=== PATIENT | male | born 1945 | race Caucasian/White ===

== ENCOUNTER 2021-02-25 10:13 | Outpatient (REF) | payer MEDICARE, OTHER, SELFPAY ==
--- NOTE | ~2021-02-25 | US_ITS ---
EXAMINATION: US RETROPERITONEAL COMPLETE (RENAL) CLINICAL INFORMATION: Microscopic hematuria. COMPARISON: Renal ultrasounds dated 04/11/2018 and 09/13/2017. CT abdomen and pelvis without contrast dated 12/27/2017. KUBs dated 08/11/2017 and 03/12/2010. TECHNIQUE: Real-time imaging of the kidneys and bladder. FINDINGS: RIGHT KIDNEY: 12.1 x 5.8 x 5.8 cm (SAG x AP x TRV). The kidney is normal in size, contour, and echogenicity. Renal cortical thickness is normal. There is a 9 x 7 x 6 mm stone in the lower pole that moved into the UPJ region. There is a 4 x 2 x 4 mm upper pole stone. There is mild hydronephrosis. No focal parenchymal lesions. LEFT KIDNEY: 12.6 x 6.6 x 4.9 cm (SAG x AP x TRV). The kidney is normal in size, contour, and echogenicity. Renal cortical thickness is normal. No calculi or focal parenchymal lesions. No hydronephrosis. BLADDER: The bladder wall is thickened and trabeculated. The prostate gland protrudes into the base of the bladder. Bilateral ureteral jets are demonstrated. Prevoid bladder volume is 213 mL. Postvoid bladder volume is 125 mL. The prostate gland is enlarged and measures 5.6 x 4.3 x 4.8 cm. Prostate volume is 60 mL. US/US retroperitoneal comp IMPRESSION: Right renal stones, largest a 9 x 7 x 6 mm stone in the UPJ region and mild hydronephrosis. Normal left kidney. Thickened, trabeculated bladder wall. Large postvoid bladder residual. Enlarged prostate gland that protrudes into the base of the bladder.
== END 2021-02-25 10:14 | disposition home or self-care (01) ==
LOC: HO.HMGCX 10:13
PROVIDERS: PCP Internal Medicine Medical Oncology; Visit Provider Internal Medicine Medical Oncology
DX: R31.29 Other microscopic hematuria (principal)
CPT/HCPCS: 76770

== ENCOUNTER 2024-01-31 11:50 | Outpatient (REF) | payer MEDICARE, SELFPAY | END 2024-01-31 11:51 | disposition home or self-care (01) | LOC: HO.LAB 11:50 | PROVIDERS: PCP Internal Medicine Medical Oncology; Visit Provider Internal Medicine Medical Oncology | DX: N39.0 Urinary tract infection, site not specified (principal) | CPT/HCPCS: 87086 ==

== ENCOUNTER 2024-02-14 13:08 | Outpatient (REF) | payer MEDICARE, SELFPAY ==
[2024-02-14 13:22] LABS: Appearance Urine Clear; Color Urine Yellow; Glucose Urine UA Negative (Negative); Leukocyte Esterase Urine Negative (Negative); Nitrite Urine Negative (Negative); Urine Blood Negative (Negative); Urine Ketones Negative (Negative); Urine Protein Negative (Neg-Trace)
== END 2024-02-14 13:09 | disposition home or self-care (01) ==
LOC: HO.LNP 13:08
PROVIDERS: Visit Provider Internal Medicine Medical Oncology
DX: R35.1 Nocturia (principal)
CPT/HCPCS: 81003; 87086

== ENCOUNTER 2024-04-25 10:22 | Outpatient (REF) | payer MEDICARE, SELFPAY ==
--- NOTE | ~2024-04-25 | XR_ITS ---
EXAMINATION: XR CHEST CLINICAL INFORMATION: Chronic cough. COMPARISON: None available. TECHNIQUE: 2 views of the chest were obtained. FINDINGS: There is no gross pneumothorax. Heart size is normal. Trace left pleural effusion. Patchy opacities in the azh-bs-vtpvo left lung. Deformity of several left ribs, possibly related to trauma of indeterminate age and this could be evaluated with dedicated views of the ribs. Degenerative changes in the thoracic spine. XR/XR chest 2V IMPRESSION: 1. Substantial patchy airspace opacities in the yoc-tg-nytid left lung. 2. Deformity of several left ribs, possibly related to trauma of indeterminate age and this could be evaluated with dedicated views of the ribs. This study was presented today April 25, 2024 for interpretation. Stat results provided at this time as requested by referring provider. 1. Electronically signed by: Angelika Barry MD 04/25/2024 01:12 PM ME[facility] MARRERO
[2024-04-25 10:44] LABS: MANUAL DIFF FLAG NO
[2024-04-25 10:55] LABS: Basophils Absolute Auto 0.1 X10*3/uL (0.0-0.2); Basophils Percent Auto 1.2 % (0-2); Eosinophils Absolute Auto 0.4 X10*3/uL (0.0-0.4); Eosinophils Percent Auto 4.7 % (0-4); Hematocrit 36.5 % (42.0-52.0); Hemoglobin 12.4 g/dl (14.0-18.0); Imm Gran Abs Auto 0.04 X10*3/uL (0.00-0.03); Imm Gran Pct Auto 0.5 % (0.0-0.4); Lymphocytes Absolute Auto 2.7 X10*3/uL (1.2-4.9); Lymphocytes Percent Auto 31.6 % (20-40); Mean Corpuscular Hemoglobin 31.6 pg (27.0-33.0); Mean Corpuscular Volume 92.9 fL (80.0-98.0); Mean Platelet Volume 10.6 fL (9.4-12.4); Monocytes Absolute Auto 0.8 X10*3/uL (0.1-1.2); Monocytes Percent Auto 9.6 % (2-11); Neutrophils Absolute Auto 4.5 x10*3/uL (2.0-8.3); Neutrophils Percent Auto 52.4 % (45-73); Platelet Count 218 X10*3/uL (160-400); Red Blood Count 3.93 X10*6/uL (4.60-5.80); Red Cell Distribution Width 14.6 % (11.0-16.0); White Blood Count 8.6 X10*3/uL (4.8-10.8)
[2024-04-25 11:00] LABS: Estimated Average Glucose 146 mg/dL; Hemoglobin A1C 157.7297 umol/L; Hemoglobin A1c % 6.7 % (<6.0); Total Hemoglobin (HGBA1C) 3193.6366 umol/L
[2024-04-25 11:38] LABS: Alanine Aminotransferase 12 U/L (0-40); Albumin Level 4.3 g/dL (3.5-5.0); Alkaline Phosphatase 58 U/L (39-117); Anion Gap 12 (12-20); Aspartate Amino Transferase 38 U/L (5-37); Bilirubin Total 0.9 mg/dL (0.0-1.0); Blood Urea Nitrogen 17 mg/dL (9-16); Calcium 9.6 mg/dL (8.4-10.2); Carbon Dioxide 28 mmol/L (22-29); Chloride 103 mmol/L (96-108); Cholesterol 120 mg/dL (<200); Estimated Glomerular Filt Rate > 60; Glucose Fasting 119 mg/dL (60-99); HDL Cholesterol 35 mg/dL (>40); LDL Cholesterol Calculated 49 mg/dL (<100); Potassium 4.8 mmol/L (3.3-5.1); Sodium 138 mmol/L (135-145); Triglycerides 183 mg/dL (<150)
[2024-04-25 12:19] LABS: Creatinine Urine 168.08 mg/dL; Microalbum/Creatinine Ratio Ur 17.8 ug/mg cr (<30)
== END 2024-04-25 10:23 | disposition home or self-care (01) ==
LOC: HO.XRAY 10:22
PROVIDERS: PCP Internal Medicine Medical Oncology; Visit Provider Internal Medicine Medical Oncology
DX: R05.3 Chronic cough (principal); Z13.1 Encounter for screening for diabetes mellitus
CPT/HCPCS: 36415; 71046; 80053; 80061; 82043; 82570; 83036; 85025

== ENCOUNTER 2024-05-29 10:11 | Outpatient (AMB) | payer MEDICARE, SELFPAY ==
[2024-05-29 10:13] VITALS: BP 130/64; PULSE 78; O2SAT 98; BMI 27.5
--- NOTE | 2024-05-29 10:13 | MHC.OFFVIS ---
Vital Signs 05/29/24 10:13 Height 5 ft 9 in Weight 186 lb 4.65 oz BMI 27.5 BP 130/64 Blood Pressure Location Rt brachial Position Sitting Pulse 78 Pulse Source Pulse Oximeter Pulse Oximetry (%) 98 Oxygen Delivery Method Room Air Intake Visit Reasons: LLL opacities Medication List - Last Reconciled 05/29/24 by Yaz Knight LPN aspirin 81 mg PO DAILY fluoxetine 10 mg PO DAILY lisinopril 10 mg PO DAILY metformin ER 1,000 mg PO DAILY metoprolol succinate ER 25 mg PO BID HPI HPI LLL opacities: Details: 78-year-old gentleman, former greater than 40 pack-year smoker, quit over 20 years prior referred for pulmonary evaluation secondary to chronic bronchitic symptoms productive of yellowish to greenish sputum and the flow lobe opacities noted on chest x-ray. Patient also complains of dyspnea on exertion, particularly when going up stairs. He denies prior personal or family history of lung disease. He has been employed with no exposure to industrial dusts. Patient does not have pets. [facility] Social History (Updated 05/29/24 @ 10:20 by Yaz Knight LPN) Patient Tobacco Use Status: Former Tobacco user Tobacco use type: Cigarette Years Smoked: 40 Review of Systems Const Denies daytime sleepiness, Denies excessive sweating, Denies fatigue, Denies fever(s), Denies lethargy, Denies malaise, Denies night sweats, Denies snoring and Denies weight loss Eyes Denies blurry vision and Denies itchy eyes ENT Denies nasal congestion, Denies post nasal drip, Denies sinus pain, Denies sinus pressure and Denies other ( Thrush) Card Denies chest pain, Denies pedal edema, Denies dyspnea, Reports dyspnea on exertion, Denies orthopnea and Denies paroxysmal nocturnal dyspnea Resp Reports cough, Denies hemoptysis, Reports excessive phlegm production, Denies dyspnea, Reports dyspnea on exertion, Denies snoring and Denies wheezing GI Denies abdominal pain and Denies heartburn Musc Denies myalgias, Denies arthralgias and Denies joint swelling Skin/Breast Denies rash Neuro Denies memory loss and Denies seizure-like activity Psych Denies abnormal sleep pattern, Denies anxiety and Denies memory loss Endo Denies excessive sweating, Denies fatigue and Denies heat intolerance Vern/Lymph Denies easy bruising Aller/Immun Denies itchy eyes, Denies seasonal rhinorrhea and Denies wheezing Physical Exam Vital Signs: Last Vital Signs Pulse 78 05/29/24 10:13 BP 130/64 05/29/24 10:13 Pulse Ox 98 05/29/24 10:13 Oxygen Delivery Method Room Air 05/29/24 10:13 BMI result Body Mass Index 27.5 Const General: no acute distress and alert Nutritional Appearance: not obese Orientation/consciousness: Other orientation findings ( oriented) HEENT Head: Yes atraumatic Eyes General: appearance normal, both eyes and all related structures Sclerae: sclerae normal EOM: EOMs intact bilaterally Neck Neck: Yes supple Lymphatic: no lymphadenopathy noted Resp Effort & Inspection: normal respiratory effort and no use of accessory muscles Auscultation: clear to auscultation bilaterally Cardio Rate: regular rate Rhythm: regular rhythm Heart sounds: no gallops, no murmurs and no rubs Skin General skin exam: other ( warm) Extrem General: No clubbing, No cyanosis and No edema Assessment & Plan Assessment & Plan (1) Chronic bronchitis: Code(s): J42 - Unspecified chronic bronchitis Category: Medical Plan: Will treat with a course of Levaquin. (2) Abnormal chest x-ray: Code(s): R93.89 - Abnormal findings on diagnostic imaging of other specified body structures Category: Medical Plan: Will obtain CT chest for further evaluation. (3) Dyspnea on exertion: Code(s): R06.09 - Other forms of dyspnea Category: Medical Plan: Likely underlying COPD of unclear severity. Will obtain full PFT and start on empiric Anoro. Orders: Orders CT chest wo IV con Today R93.89 - Abnormal findings on diagnostic imaging of other specified body structures PFT pulmonary function test Today R06.09 - Other forms of dyspnea Medications: New levofloxacin 750 mg PO DAILY 7 tabs 0RF J42 - Unspecified chronic bronchitis Coding Level of Care Code New Pt Level 4 (89287) Diagnoses Chronic bronchitis J42 Abnormal chest x-ray R93.89 Dyspnea on exertion R06.09
--- OUTSIDE RECORDS SUMMARY | 2024-05-29 11:15 | XMS_ITS ---
Author Organization Miko Elias III, MD Address [address] [place] [address] [address] [place] [address] Care Team Providers Care Municipal Maintenance Worker Name Role Phone Miko Elias Primary Care Provider Allergies Allergen (clinical drug [...] Date Provider Diagnosis Miko Elias III, MD [address] [place] [address] [address] [place] [address] 05/09/2024 Miko Elias Plan Of Treatment Medication [...] JEWELL TH EVERY DAY FOR 30 DAYS Lancets - E 11.9 use to check [...] EVERY DAY Next Appt Details Provider Name:Miko Elias, 10/17/2024 10:00:00 AM, [address] [place] [address] [address], [place], [address], Progress Notes * Sylvester ROCK EDOB:[birth year] (78 yo M)Acc No.[id number]:05/09/2024 Progress Notes Patient:?Sylvester ROCK Provider:?Miko Elias MD :1945???Age:78 Y???Sex:Male Edison e:05/09/2024 Address:[address], [place], [id number] Subjective: * Chief Complaints: * ???1. Follow up. * HPI: ???COVID-19 Screening:?Questions?Have you had any new onset fever, chills, cough, congestion, sore throat, shortness of breath, muscle aches??No * ROS:?General/Constitutional:?pain?only normal aches and pains.?Chills?denies.?Fatigue?admits.?Fever?denies.?ENT:?Decreased hearing?denies.?Respiratory:?Cough?denies.?Cardiovascular:?Chest pain with exertion?denies.?Dyspnea on exertion?denies.?Shortness of breath?denies.?Gastrointestinal:?Constipation?denies.?Decreased appetite?denies.?Diarrhea?denies.?Heartburn?denies.?Nausea?denies.?Rectal bleeding?denies.?Vomiting?denies.?Hematology:?bruising?denies.?petechiae?denies.?Swollen glands?none have been noted.?Genitourinary:?Frequent urination?denies.?Musculoskeletal:?Muscle aches?denies.?Painful joints?denies.?Sciatica?denies.?Weakness?denies.?Skin:?Itching?denies.?Rash?denies.?Skin lesion(s)?denies.?Neurologic:?Difficulty speaking?denies.?Dizziness?denies.?Headache?denies.?Low back pain?denies.?Psychiatric:?Depressed mood?denies.? * Medical History:?Depression, Gout, Hypertension, benign, Cataracts, Sleep apnea, Diabetes mellitus 2006, Allergies, fractured left tibia May 30, 2013, Hypertriglyceridemia, low back pain September 2017, Nephrolithiasis. * Surgical History:?left knee surgery , fractured left tibia repair May 2013, right kidney stone removal 08/11/2017, tooth extraction 08/2021. * Hospitalization/Major Diagno stic Procedure:?chest pain 08/2018, fall with facial laceration and sutures 07/2023. * Family History:?Father: dece ased 25 yrs, automobile accident.?Mother: 82 yrs, stroke.?Siblings: .?2 brother(s) , 2 sister(s) - healthy. .? A brother at 23 in an automobile accident. He has no children. He is not aware of any family history of substance use disorder, addiction or mental illness. * Social History:?Tobacco Use:?Tobacco Use/Smoking?Patient is a?former smoker ?How long has it been since you last smoked??> 10 years ?Additional Findings: Tobacco Non-User?Ex-cigarette smoker ???He was born in [place] and has been to [place] for 15 years. He has 1 stepson. 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 * Medications:?Taking Ciproflo xacin HCl 250 MG Tablet 1 tablet Orally [...] reviewed and reconciled with the patient * Allergies:?Dexamethasone: an xiety and insomnia, Oxycodone: nausea, Stomach pain. Objective: * Vitals:? * Examination: ???General Examination: ?GENERAL APPEARANCE:?pleasant, well nourished, well developed, in no acute distress, calm and relaxed.?HEAD:?atraumatic, normocephalic.?EYES:?eomi, perrla, anicteric, conjugate.?EARS:?normal.?NOSE:?septum intact.?ORAL CAVITY:?normal, unremarkable.?NECK/THYROID:?no jugular venous distention, no carotid bruit, thyroid normal.?LYMPH NODES:?no enlarged lymph nodes,spleen normal.?SKIN:?no suspicious lesions, anicteric.?HEART:?no clicks, gallops, murmurs, or rubs, regular rhythm, S1, S2 normal, no s3, or vascular bruits.?LUNGS:?clear to auscultation .?BREASTS:??no masses palpable bilaterally.?ABDOMEN:?bowel sounds normal, no ascites, no organomegaly, no mass.?RECTAL EXAM:?not examined.?MUSCULOSKELETAL:?extremities unremarkable, no clubbing, cyanosis or edema.?PERIPHERAL PULSES:?normal.?NEUROLOGIC:?alert and oriented, cranial nerves 2-12 grossly intact, deep tendon reflexes 2+ symmetrical, motor strength normal upper and lower extremities, sensory exam intact.?PSYCH:?alert, oriented.? Assessment: Plan: * Treatment: * Images: * The named appointment provid er may or may not be the originator of this progress note, and it is not deemed complete until electronically signed by the appointment provider. Sign off status: Pending * Provider:?Miko Elias MD Date:?04/23 Generated for Lindsay jack/Stella/eTransmitting on:?05/29/2024 11:15 AM EST History and Physical Notes * HPI (History [...]
--- OUTSIDE RECORDS SUMMARY | 2024-05-29 11:16 | XMS_ITS | Patient Health Record ---
Author Organization Miko Elias III, MD Address [address] [place] [address] [address] [place] [address] Care Team Providers Care Applications System Analyst Name Role Phone Miko Elias Primary Care Provider Allergies Allergen (clinical drug ingredient) Drug/Non Drug Allergy documented on EMR Reaction Allergy Type Onset Date Status oxycodone Oxycodone nausea, Stomach pain Drug Allergy Active dexamethasone Dexamethasone anxiety and insomnia Drug Allergy Active Results Component Value Reference Range Notes URINE DIP STICK Reviewed date:02/06/2024 07:28:32 AM Interpretation:normal Performing Lab: Notes/Report: normal SG 1.000 1.005 - 1.025 pH 5.0 5.0 - 9.0 AYANNA neg Negative - NIT neg Negative - PRO trace Negative - Trace GLU normal Negative - KET neg Negative - UBG normal 0.1 - 1.8 HORACIO neg 0.2 - 1.3 BLD neg Negative - Menstrating N/A URINE DIP STICK Reviewed date:02/14/2024 10:01:22 AM Interpretation: Performing Lab: Notes/Report: SG 1.015 1.005 - 1.025 pH 5.0 5.0 - 9.0 AYANNA Negative Negative - NIT Negative Negative - PRO 15 Negative - Trace GLU Negative Negative - KET Negative Negative - UBG 0.2 0.1 - 1.8 HORACIO Negative 0.2 - 1.3 BLD Negative Negative - Urinalysis Reviewed date:02/16/2024 06:34:52 AM Interpretation: Performing Lab:[facility], [address] [place] [phone] Notes/Report: Color Urine Yellow Appearance Urine Clear PH 6.0 5.0-9.0 Glucose Urine UA Negative Negative mg/dL Urine Blood Negative Negative Specific [place] - Urine 1.010 1.005-1.025 Urine Protein Negative Neg-Trace mg/dL Urine Ketones Negative Negative mg/dL Nitrite Urine Negative Negative Leukocyte Esterase Urine Negative Negative Urine Culture Reviewed date:02/16/2024 06:34:52 AM Interpretation: Performing Lab:[facility], [address] [place] [phone] Notes/Report: Urine Culture Report Result Urine Culture < 10,000 cfu/ml Lipid Panel Reviewed date:04/25/2024 08:42:11 PM Interpretation: Performing Lab:[facility], [address] [place] [phone] Notes/Report: Triglycerides 183 <150 mg/dL Desirable Triglyceride: less than 150 mg/dL Borderline High Triglyceride 150-199 mg/dL High Triglyceride: 200-499 mg/dL Very High Triglyceride: greater than or equal to 5OO mg/dL Cholesterol 120 <200 mg/dL Desirable Cholesterol: less than 200 mg/dL Borderline High Cholesterol: 200-239 mg/dL High Cholesterol: greater than 239 mg/dL LDL Cholesterol Calculated 49 <100 mg/dL Desirable LDL: less than 100 mg/dL Near Optimal/Above Optimal LDL: 110-129 mg/dL Borderline High LDL: 130-159 mg/dL High LDL: 160-189 mg/dL Very High LDL: greater than or equal to 190 mg/dL HDL Cholesterol 35 >40 mg/dL Desirable HDL: greater than 40 mg/dL Note: This HDL assay may give artificially low results in patients with liver disease. Microalbumin, Random Reviewed date:04/25/2024 08:42:11 PM Interpretation: Performing Lab:[address] [address] Notes/Report: Creatinine Urine 168.08 Microalbumin Urine 30.0 Microalbum/Creatinine Ratio Ur 17.8 <30 ug/mg cr Albumin/Creatinine Ratio Reference Ranges: Normal: < 30 ug/mg creatinine Microalbuminuria: 30 - 300 ug/mg creatinine Clinical Albuminuria: > 300 ug/mg creatinine Hemoglobin A1c Reviewed date:04/25/2024 08:42:11 PM Interpretation: Performing Lab:[facility], [address] [place] [phone] Notes/Report: Hemoglobin A1c % 6.7 <6.0 % Hemoglobin A1C Reference Range Adults: 4.8 - 6.0 % Non diabetic: < 6.0 % Goal: < 7.0 % Additional Action Suggested: > 8.0 % Note: Hemoglobin A1c results are invalid for patients with abnormal amounts of HbF. Blood transfusions may impact the HbA1c concentration in the patient sample. Estimated Average Glucose 146 eAG = Estimated average glucose which is %A1C expressed as average glucose, using the formula of the [id number] Average Glucose study (ADAG), Diabetes Care, Vol.31,#8, Dec. 2007 Urine Culture Reviewed date:02/06/2024 07:28:32 AM Interpretation: Performing Lab:[facility], [address] [place] [phone] Notes/Report: Urine Culture No growth. Complete Blood Count Auto Di ff Reviewed date:04/25/2024 08:42:11 PM Interpretation: Performing Lab:[facility], [address] [place] [phone] Notes/Report: White Blood Count 8.6 4.8-10.8 X10*3/uL Red Blood Count 3.93 4.60-5.80 X10*6/uL Hemoglobin 12.4 14.0-18.0 g/dl Hematocrit 36.5 42.0-52.0 % Mean Corpuscular Volume 92.9 80.0-98.0 fL Mean Corpuscular Hemoglobin 31.6 27.0-33.0 pg Mean Corpuscular HGB Conc 34.0 31.0-36.0 g/dl Red Cell Distribution Width 14.6 11.0-16.0 % Platelet Count 218 160-400 X10*3/uL Mean Platelet Volume 10.6 9.4-12.4 fL Neutrophils Percent Auto 52.4 45-73 % Imm Gran Pct Auto 0.5 0.0-0.4 % Lymphocytes Percent Auto 31.6 20-40 % Monocytes Percent Auto 9.6 2-11 % Eosinophils Percent Auto 4.7 0-4 % Basophils Percent Auto 1.2 0-2 % NRBC Pct Auto 0.0 0.0-0.2 /100WBC Neutrophils Absolute Auto 4.5 2.0-8.3 x10*3/u L Imm Gran Abs Auto 0.04 0.00-0.03 X10*3/uL Lymphocytes Absolute Auto 2.7 1.2-4.9 X10*3/u L Monocytes Absolute Auto 0.8 0.1-1.2 X10*3/uL Eosinophils Absolute Auto 0.4 0.0-0.4 X10*3/u L Basophils Absolute Auto 0.1 0.0-0.2 X10*3/uL NRBC Abs Auto 0.000 0.0-0.012 X10*3/uL Comprehensive [place]. Panel Fa st Reviewed date:04/25/2024 08:42:11 PM Interpretation: Performing Lab:[facility], [address] [place] [phone] Notes/Report: Sodium 138 135-145 mmol/L Potassium 4.8 3.3-5.1 mmol/L Chloride 103 96-108 mmol/L Carbon Dioxide 28 22-29 mmol/L Anion Gap 12 12-20 Blood Urea Nitrogen 17 9-16 mg/dL Creatinine 1.09 0.5-1.4 mg/dL Estimated Glomerular Filt Rate > 60 Chronic Kidney Disease: Estimated GFR < 60 mL/min/1.73m2 Severe Kidney Disease: Estimated GFR < 15 mL/min/1.73m2 Glucose Fasting 119 60-99 mg/dL A fasting glucose from 100-125 mg/dl is considered impaired (pre-diabetes). Calcium 9.6 8.4-10.2 mg/dL Bilirubin Total 0.9 0.0-1.0 mg/dL Aspartate Amino Transferase 38 5-37 U/L Alanine Aminotransferase 12 0-40 U/L Total Protein 7.0 6.5-8.0 g/dL Albumin Level 4.3 3.5-5.0 g/dL Alkaline Phosphatase 58 39-117 U/L XR chest 2V Reviewed date:04/25/2024 08:42:11 PM Interpretation: Performing Lab: Notes/Report: [address] [place] [address] XRay Report Signed Patient: Sylvester Rock MR#: [id number] : 1945 Acct:[id number] Age/Sex: 78 / M ADM Date: 04/25/24 Loc: [facility] Attending Dr: Miko Elias MD Ordering Physician: Miko Elias MD Date of Service: 04/25/24 Procedure(s): XR chest 2V Accession Number(s): [id number] cc: Miko Elias MD EXAMINATION: XR CHEST CLINICAL INFORMATION: Chronic cough. COMPARISON: None available. TECHNIQUE: 2 views of the chest were obtained. FINDINGS: There is no gross pneumothorax. Heart size is normal. Trace left pleural effusion. Patchy opacities in the bnc-qa-ypkbb left lung. Deformity of several left ribs, possibly related to trauma of indeterminate age and this could be evaluated with dedicated views of the ribs. Degenerative changes in the thoracic spine. XR/XR chest 2V IMPRESSION: 1. Substantial patchy airspace opacities in the sgz-ax-xrmvn left lung. 2. Deformity of several left ribs, possibly related to trauma of indeterminate age and this could be evaluated with dedicated views of the ribs. This study was presented today April 25, 2024 for interpretation. Stat results provided at this time as requested by referring provider. 1. Electronically signed by: Angelika Barry MD 04/25/2024 01:12 PM [facility] Dictated By: Angelika Barry MD Signed By: <Electronically signed by Angelika Barry MD in OV> 04/25/24 1312 DD/ 1049 TD/TT: 04/25/24 1103 Progress Developer: [address] [address] XRay Report Signed Patient: Dave Rock rd MR#: [id number] : 1945 Acct:[id number] Age/Sex: 78 / M ADM Date: 04/25/24 Loc: [facility] Attending Dr: Miko Elias MD Ordering Physician: Miko Elias MD Date of Service: 04/25/24 Procedure(s): XR jd st 2V Accession Number(s): [id number] cc: Miko Elias MD EXAMINATION: XR CHEST CLINICAL INFORMATION: Chronic cough. COMPARISON: None available. TECHNIQUE: 2 views of the chest were obtained. FINDINGS: There is no gross pneumothorax. Heart size is normal. Trace left pleural effusion. Patchy opacities in the ubu-um-iypto left lung. Deformity of several left ribs, possibly related to trauma of indeterminate age an d this could be evaluated with dedicated views of the ribs. Degenerative changes in the thoracic spine. XR/XR chest 2V IMPRESSION: 1. Substantial patch y airspace opacities in the qtw-ii-lonzw left lung. 2. Deformity of several left ribs, possibly related to trauma of indeterminate age an d this could be evaluated with dedicated views of the ribs. This study was presented today April 25, 2024 for interpretation. Stat results provide d at this time as requested by referring provider. 1. Electronically noy d by: Angelika Barry MD 04/25/2024 01:12 PM [facility] Dictated By: Angelika Barry MD Signed By: <Electronically signed by Angelika Barry MD in OV> 04/25/24 1312 DD/ 1049 TD/TT: 04/25/24 1103 Progress Developer: Reason For Referral Reason LLL opacities eval uate and treat Diagnosis 1 Former smoker (Z87.8 91) Diagnosis 2 Chronic cough (R05.3 ) Referral Organization Miko Elias III, MD Referring Provider First Name Miko Referring Provider Last Name Jada Referring Provider Speciality Internal M edicine Referred Provider [facility] er, Pulmonology Referred Provider Specialty Pulmonary [facility] General Notes Tonia Singletary CMA 04/26 11:10:04 AM >ref/demo/progress note/labs/cxr faxed to [facility] de[facility] . called made patient appt with Dr Armstrong for 05/29/2024 at 10:45am info called and mailed to patient Referral Priority Routine Referral Appointment Date 05/29/2024 Medications Medication SIG (Take, Route, Frequency, Duration) Notes Start Date End Date Status Adult Aspirin Low Strength 81 MG as directed Orally once a day Active metFORMIN HCl 500 MG TAKE 2 TABLETS BY M OUTH TWICE A DAY Active Metoprolol Tartrate 100 MG TAKE 1 TABLET BY MOUTH TWICE A DAY WITH FOOD FOR 30 DAYS Active Viagra 100 MG 1 tablet as [...] blood sugar once a day 12/05/2019 Active Atorvastatin Calcium 10 MG TAKE 1 TABLET BY MOUTH EVERY DAY Active Gabapentin 300 MG 1 capsule Orally thr ee times a day Active Ciprofloxacin HCl 250 MG 1 tablet Orally every 12 hrs 04/26/2024 Active FLUoxetine HCl 20 MG TAKE 1 CAPSULE BY M OUTH EVERY DAY Active Tamsulosin HCl 0.4 MG 1 capsule Orally O nce a day 02/14/2024 Active Ketoconazole 2 % APPLY DAILY TO SKIN TO AFFECTED AREA EVERY DAY FOR 30 DAYS Active Immunizations Vaccine Route Administration Date Status Comme nts Pneumococcal Unknown 05/01/2011 Administered Influenza IM Intramuscular 02/15/2014 Administered COVID PFIZER Unknown 07/01/2020 Administered Tdap Unknown 12/31/2017 Administered PPV 23 Unknown 12/31/2017 Administered SHINGRIX Unknown 02/07/2021 Administered SHINGRIX Unknown 05/02/2021 Administered COVID PFIZER Unknown 03/04/2021 Administered COVID PFIZER Unknown 07/22/2020 Administered COVID Pfizer Bivalent Unknown 02/13/2022 Administered COVID-19 Comirnaty Pfizer-BioNTech Unknown 03/19/2023 Administered Influenza High Dose Quadrivalent Unknown 03/19/2023 Administered RSV Adjuvant Unknown 12/19/2023 Administered Fluzone High-Dose (HD-IIV3) Unknown 02/24/2017 Administered Fluzone High-Dose (HD-IIV3) Unknown 04/06/2024 Administered Comirnaty Pfizer COVID-19 12+ Unknown 03/19/2023 Administered Flu-IIv4 Unknown 05/13/2018 Administered Fluzone High-Dose (HD-IIV3) Unknown 02/25/2016 Administered Social History Tobacco Use: Social History Observation [...] Problem Status W/U Status Risk Notes Problem 0150247 Former smoker (Z87.891) Active confirmed He is highly motivated not to smoke and we have discussed strategies for maintenance of abstinence. Problem 057056409 Overweight (E66.3) Active confirmed His body mass index is slightly over 26. We discussed his diet and nutrition. We made plans to lose weight at a rate of one half of a pound per week. Problem 64768241 Depression (F32.9) Active confirmed . He occasionally has mild episodes of depressed feelings. This was present today but did not require additional treatment. Problem 99471469 Diabetes mellitus (E11.9) Active confirmed His fasting glucoses 119 his hemoglobin A1c is 6.1. We recommended additional weight loss but made no change in his regimen. Problem 70864776 Simple chronic bronchitis (J41.0) Active confirmed His chest x-ray is unremarkable. He received another course noman antibiotics at his request with a follow-up visit. 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 He is under the care of a urologist. Problem 78208947 Gout (M10.9) Active confirmed A uric acid level will be checked in the future. He has had no recent attacks of gout. Problem Benign prostatic hypertrophy without outflow obstruction (916335492) BPH (benign prostatic hypertrophy) (N40.0) Active confirmed He will be continued on the tamsulosin. The urine culture showed no infection. Problem 59599566 Essential hypertension (I10) Active confirmed His blood pressure is Unremarkable. No change in his regimen as needed. Problem 896895782 Environmental allergies (Z91.09) Active confirmed He reports an increase in his allergic symptoms recently. We reviewed and adjusted. His allergy regimen. Problem 864433696 Hypertriglyceri demia (E78.1) Active confirmed His last triglycerides are elevated 192. A repeat fasting lipid profile has been ordered. He was counseled about a low animal fat diet. Problem Pure hypercholesterolem ia (651310915) Hyperlipidemia type II (E78.01) Active confirmed His total cholesterol was 120. No change in his regimen was needed. Problem Acute low back pain (finding) (977730159) Acute low back pain without sciatica, unspecified back pain laterality (M54.5) Active confirmed His back pain has resolved and he has been to the urologist. Problem 15879533 Cardiomyopathy, unspecified type (I42.9) Active confirmed His cardiomyopathy is well compensated and he is not short of breath with the routine activities of daily living. Vital Signs Heart Rate 67 /min 05/02/2024 Temperature 97.5 degrees Fahrenheit 05/02/2024 Blood pressure diastolic 70 mm Hg 05/02/2024 Height 69 in 05/02/2024 Blood pressure systolic 140 mm Hg 05/02/2024 Weight 180 lbs 05/02/2024 BMI 26.58 kg/m2 05/02/2024 Encounters Encounter Location Date Provider Diagnosis Miko Elias III, MD [address] [place] [address] [place] [address] 06/07/2023 Miko Elias Diabetes mellitus E1 1.9 ; Former smoker Z87.891 ; Essential hypertension I10 ; Overweight E66.3 ; Hypertriglyceridemia E78.1 ; Environmental allergies Z91.09 and Depression F32.9 Miko Elias III, MD [address] [place] [address] [place] [address] 07/05/2023 Miko Elias Environmental allerg ies Z91.09 ; Depression F32.9 ; Gout M10.9 ; Essential hypertension I10 ; Former smoker Z87.891 ; Overweight E66.3 ; BPH (benign prostatic hypertrophy) N40.0 and Hyperlipidemia type II E78.01 Miko Elias III, MD [address] [place] [address] [place] [address] 10/13/2023 Miko Elias Environmental allerg ies Z91.09 ; Diabetes mellitus E11.9 ; Overweight E66.3 ; Hyperlipidemia type II E78.01 ; Gout M10.9 and Personal history of nicotine dependence Z87.891 Miko Elias III, MD [address] [place] [address] [place] [address] 02/14/2024 Miko Elias Polyuria R35.89 ; Fo rmer smoker Z87.891 ; Depression F32.9 ; Diabetes mellitus E11.9 ; Gout M10.9 ; Essential hypertension I10 ; Overweight E66.3 and Sleep apnea G47.30 Miko Elias III, MD [address] [place] [address] [place] [address] 02/22/2024 Miko Elias Cardiomyopathy, unsp ecified type I42.9 ; Diabetes mellitus E11.9 ; Gout M10.9 and BPH (benign prostatic hypertrophy) N40.0 Miko Elias III, MD [address] [place] [address] [place] [address] 04/25/2024 Miko Elias Diabetes mellitus E1 1.9 ; Overweight E66.3 ; Hyperlipidemia type II E78.01 ; Chronic cough R05.3 ; Gout M10.9 ; Depression F32.9 ; Environmental allergies Z91.09 and BPH (benign prostatic hypertrophy) N40.0 Miko Elias III, MD [address] [place] [address] [place] [address] 05/02/2024 Miko Elias Simple chronic [facility] hitis J41.0 ; Environmental allergies Z91.09 ; Depression F32.9 ; Gout M10.9 ; Diabetes mellitus E11.9 ; Cardiomyopathy, unspecified type I42.9 ; Hyperlipidemia type II E78.01 and Former smoker Z87.891 Miko Elias III, MD [address] [place] [address] [place] [address] 07/08/2023 Miko Elias III, MD [address] [place] [address] [place] [address] 07/08/2023 Miko Elias III, MD [address] [place] [address] [place] [address] 08/26/2023 Miko Elias Diabetes mellitus E1 1.9 ; Essential hypertension I10 ; Overweight E66.3 ; Hyperlipidemia type II E78.01 and BPH (benign prostatic hypertrophy) N40.0 Miko Elias III, MD [address] [place] [address] [place] [address] 09/28/2023 Miko Elias III, MD [address] [place] [address] [place] [address] 12/10/2023 Miko Elias III, MD [address] [place] [address] [place] [address] 12/10/2023 Miko Elias III, MD [address] [place] [address] [place] [address] 01/31/2024 Miko Elias Urinary tract infect ion without hematuria, site unspecified N39.0 Miko Elias III, MD [address] [place] [address] [place] [address] 02/16/2024 Miok Elias III, MD [address] [place] [address] [place] [address] 04/26/2024 Miko Elias Former smoker Z87.89 1 and Chronic cough R05.3 Assessments Encounter Date Diagnosis (ICD Code) Assessment Notes T reatment Notes Treatment Clinical Notes 06/07/2023 Former smoker (ICD-1 0 - Z87.891) He is highly motivated not to smoke and we have discussed strategies for maintenance of abstinence. 06/07/2023 Diabetes mellitus (I CD-10 - E11.9) The insulin and supplies and needles will be prescribed. I will see if his insurance covers on insulin pen. He will be given diabetic teaching. 07/05/2023 Depression (ICD-10 - F32.9) . He occasionally has mild episodes of depressed feelings. This was present today but did not require additional treatment. 07/05/2023 Environmental allerg ies (ICD-10 - Z91.09) He reports an increase in his allergic symptoms recently. We reviewed and adjusted. His allergy regimen. 10/13/2023 Diabetes mellitus (I CD-10 - E11.9) He is compliant with medication. His diabetes is well controlled and no change in his regimen was needed today. 10/13/2023 Environmental allerg ies (ICD-10 - Z91.09) He reports an increase in his allergic symptoms recently. We reviewed and adjusted. His allergy regimen. 02/14/2024 Former smoker (ICD-1 0 - Z87.891) He is highly motivated not to smoke and we have discussed strategies for maintenance of abstinence. 02/14/2024 Polyuria (ICD-10 - R35.89) He is complaining of urinating frequently during the day as well as a night. The results of the blood work done at [facility] once in February 11, 2024 will be obtained. Despite his normal urinalyssis the urine will be cultured. He will return there after. He was given a trial of tamsulosin. He will have a digital rectal exam. 02/22/2024 Diabetes mellitus (I CD-10 - E11.9) He is compliant with medication. His diabetes is well controlled and no change in his regimen was needed today. 02/22/2024 Cardiomyopathy, unspecified type (ICD-10 - I42.9) His cardiomyopathy is well compensated and he is not short of breath with the routine activities of daily living. 04/25/2024 Overweight (ICD-10 - E66.3) His body mass index is slightly over 26. We discussed his diet and nutrition. We made plans to lose weight at a rate of one half of a pound per week. 04/25/2024 Diabetes mellitus (I CD-10 - E11.9) His fasting glucoses 119 his hemoglobin A1c is 6.1. We recommended additional weight loss but made no change in his regimen. 05/02/2024 Simple chronic bronc hitis (ICD-10 - J41.0) His chest x-ray is unremarkable. He received another course noman antibiotics at his request with a follow-up visit. 05/02/2024 Environmental allerg ies (ICD-10 - Z91.09) He reports an increase in his allergic symptoms recently. We reviewed and adjusted. His allergy regimen. 04/26/2024 Former smoker (ICD-1 0 - Z87.891) 06/07/2023 Essential hypertensi on (ICD-10 - I10) His blood pressure is 134/80. No change in his regimen as nneeded. 07/05/2023 Gout (ICD-10 - M10.9) A uric aci d level will be checked in the future. He has had no recent attacks of gout. 10/13/2023 Overweight (ICD-10 - E66.3) He has lost several pounds. We discussed his weight loss strategy. He will continue to lose weight until his body mass index is in the normal range. 02/14/2024 Depression (ICD-10 - F32.9) . He occasionally has mild episodes of depressed feelings. This was present today but did not require additional treatment. 02/22/2024 Gout (ICD-10 - M10.9) A uric aci d level will be checked in the future. He has had no recent attacks of gout. 04/25/2024 Hyperlipidemia type II (ICD-10 - E78.01) His total cholesterol was 120. No change in his regimen was needed. 05/02/2024 Depression (ICD-10 - F32.9) . He occasionally has mild episodes of depressed feelings. This was present today but did not require additional treatment. 08/26/2023 Diabetes mellitus (I CD-10 - E11.9) 01/31/2024 Urinary tract infect ion without hematuria, site unspecified (ICD-10 - N39.0) 04/26/2024 Chronic cough (ICD-1 0 - R05.3) 06/07/2023 Overweight (ICD-10 - E66.3) We have discussed his diet and nutrition. We reviewed his weight loss strategy. He will lose weight at a rate of one half of a pound per week until the body mass index is normal. 07/05/2023 Essential hypertensi on (ICD-10 - I10) His blood pressure is 134/80. No change in his regimen as nneeded. 10/13/2023 Hyperlipidemia type II (ICD-10 - E78.01) His lipids are currently stable and no change in his regimen was needed. 02/14/2024 Diabetes mellitus (I CD-10 - E11.9) He is compliant with medication. His diabetes is well controlled and no change in his regimen was needed today. 02/22/2024 BPH (benign prostati c hypertrophy) (ICD-10 - N40.0) He will be continued on the tamsulosin. The urine culture showed no infection. 04/25/2024 Chronic cough (ICD-1 0 - R05.3) His chest x-ray is reported to show left lower lobe opacities. This x-ray will be reviewed. He will be given an antibiotic and a pulmonary consultation if it does not resolve. 05/02/2024 Gout (ICD-10 - M10.9) A uric aci d level will be checked in the future. He has had no recent attacks of gout. 08/26/2023 Essential hypertensi on (ICD-10 - I10) 06/07/2023 Hypertriglyceridemia (ICD-10 - E78.1) His last triglycerides are elevated 192. A repeat fasting lipid profile has been ordered. He was counseled about a low animal fat diet. 07/05/2023 Former smoker (ICD-1 0 - Z87.891) He is highly motivated not to smoke and we have discussed strategies for maintenance of abstinence. 10/13/2023 Gout (ICD-10 - M10.9) A uric aci d level will be checked in the future. He has had no recent attacks of gout. 02/14/2024 Gout (ICD-10 - M10.9) A uric aci d level will be checked in the future. He has had no recent attacks of gout. 04/25/2024 Gout (ICD-10 - M10.9) A uric aci d level will be checked in the future. He has had no recent attacks of gout. 05/02/2024 Diabetes mellitus (I CD-10 - E11.9) His fasting glucoses 119 his hemoglobin A1c is 6.1. We recommended additional weight loss but made no change in his regimen. 08/26/2023 Overweight (ICD-10 - E66.3) 06/07/2023 Environmental allerg ies (ICD-10 - Z91.09) He reports an increase in his allergic symptoms recently. We reviewed and adjusted. His allergy regimen. 07/05/2023 Overweight (ICD-10 - E66.3) We have discussed his diet and nutrition. We reviewed his weight loss strategy. He will lose weight at a rate of one half of a pound per week until the body mass index is normal. 10/13/2023 Personal history of nicotine dependence (ICD-10 - Z87.891) 02/14/2024 Essential hypertensi on (ICD-10 - I10) His blood pressure is Unremarkable. No change in his regimen as needed. 04/25/2024 Depression (ICD-10 - F32.9) . He occasionally has mild episodes of depressed feelings. This was present today but did not require additional treatment. 05/02/2024 Cardiomyopathy, unspecified type (ICD-10 - I42.9) His cardiomyopathy is well compensated and he is not short of breath with the routine activities of daily living. 08/26/2023 Hyperlipidemia type II (ICD-10 - E78.01) 06/07/2023 Depression (ICD-10 - F32.9) . He occasionally has mild episodes of depressed feelings. This was present today but did not require additional treatment. 07/05/2023 BPH (benign prostati c hypertrophy) (ICD-10 - N40.0) He rises from sleep once or twice a night to urinate. We discussed lifestyle modification as a way to reduce nocturia. 02/14/2024 Overweight (ICD-10 - E66.3) He has lost several pounds. We discussed his weight loss strategy. He will continue to lose weight until his body mass index is in the normal range. 04/25/2024 Environmental allerg ies (ICD-10 - Z91.09) He reports an increase in his allergic symptoms recently. We reviewed and adjusted. His allergy regimen. 05/02/2024 Hyperlipidemia type II (ICD-10 - E78.01) His total cholesterol was 120. No change in his regimen was needed. 08/26/2023 BPH (benign prostati c hypertrophy) (ICD-10 - N40.0) 07/05/2023 Hyperlipidemia type II (ICD-10 - E78.01) His lipids will be checked periodically. I encouraged weight loss and a diet restricted in fat calories and sodium. 02/14/2024 Sleep apnea (ICD-10 - G47.30) He is sleeping well and no change in his regimen is necessary at this time. He uses a CPAP machine nightly and finds it is very helpful. He denies daytime somnolence. 04/25/2024 BPH (benign prostati c hypertrophy) (ICD-10 - N40.0) He will be continued on the tamsulosin. The urine culture showed no infection. 05/02/2024 Former smoker (ICD-1 0 - Z87.891) He is highly motivated not to smoke and we have discussed strategies for maintenance of abstinence. Plan Of Treatment Pending Test Test Name Order Date ELECTROLYTES 01/15/2020 PROFILE, FASTING (COMPREHENSIVE METABOLI C) 07/29/2022 PROFILE, FASTING (COMPREHENSIVE METABOLI C) 10/11/2018 PROFILE, FASTING (COMPREHENSIVE METABOLI C) 01/30/2019 PROFILE, FASTING (COMPREHENSIVE METABOLI C) 03/30/2018 PROFILE, FASTING (COMPREHENSIVE METABOLI C) 08/27/2021 PROFILE, FASTING (COMPREHENSIVE METABOLI C) 12/17/2021 PROFILE, FASTING (COMPREHENSIVE METABOLI C) 12/08/2019 PROFILE, FASTING (COMPREHENSIVE METABOLI C) 10/20/2019 PROFILE, FASTING (COMPREHENSIVE METABOLI C) 04/25/2024 PROFILE, FASTING (COMPREHENSIVE METABOLI C) 02/17/2021 PROFILE, FASTING (COMPREHENSIVE METABOLI C) 10/13/2023 PROFILE, FASTING (COMPREHENSIVE METABOLI C) 11/12/2020 PROFILE, FASTING (COMPREHENSIVE METABOLI C) 06/18/2021 PROFILE, FASTING (COMPREHENSIVE METABOLI C) 03/12/2023 PROFILE, FASTING (COMPREHENSIVE METABOLI C) 08/09/2020 PROFILE, FASTING (COMPREHENSIVE METABOLI C) 07/21/2019 PROFILE, FASTING (COMPREHENSIVE METABOLI C) 05/03/2020 PROFILE, FASTING (COMPREHENSIVE METABOLI C) 08/26/2023 PROFILE, FASTING (COMPREHENSIVE METABOLI C) 03/13/2019 PROFILE, FASTING (COMPREHENSIVE METABOLI C) 11/11/2022 PROFILE, RANDOM (COMPREHENSIVE METABOLIC ) 01/15/2020 HEMOGLOBIN A1C (GLYCOHEMOGLOBIN) 019 HEMOGLOBIN A1C (GLYCOHEMOGLOBIN) 023 HEMOGLOBIN A1C (GLYCOHEMOGLOBIN) 019 HEMOGLOBIN A1C (GLYCOHEMOGLOBIN) 019 HEMOGLOBIN A1C (GLYCOHEMOGLOBIN) 022 HEMOGLOBIN A1C (GLYCOHEMOGLOBIN) 020 HEMOGLOBIN A1C (GLYCOHEMOGLOBIN) 020 HEMOGLOBIN A1C (GLYCOHEMOGLOBIN) 021 HEMOGLOBIN A1C (GLYCOHEMOGLOBIN) 022 HEMOGLOBIN A1C (GLYCOHEMOGLOBIN) 020 HEMOGLOBIN A1C (GLYCOHEMOGLOBIN) 020 CALCIUM 10/11/2018 URIC ACID 03/30/2018 URIC ACID 10/11/2018 LIPID PANEL 07/21/2019 LIPID PANEL 11/11/2022 LIPID PANEL 05/03/2020 LIPID PANEL 03/13/2019 LIPID PANEL 07/29/2022 LIPID PANEL 01/30/2019 LIPID PANEL 03/30/2018 LIPID PANEL 02/17/2021 LIPID PANEL 08/27/2021 LIPID PANEL 08/09/2020 LIPID PANEL 10/20/2019 LIPID PANEL 11/12/2020 LIPID PANEL 10/11/2018 LIPID PANEL 06/18/2021 LDH 10/11/2018 FREE T4 (FT4) 12/27/2019 FREE T4 (FT4) 10/11/2018 TSH (THYROID STIMULATING HORMONE) 2019 TSH (THYROID STIMULATING HORMONE) 2018 BRAIN NATRIURETIC PEPTIDE (BNP) 12/27/19 PSA, TOTAL 07/29/2022 PSA, TOTAL 03/12/2023 PSA, TOTAL 08/27/2021 PSA, TOTAL 08/26/2023 PSA, TOTAL SCREEN 02/17/2021 MICROALBUMIN, RANDOM 08/27/2021 MICROALBUMIN, RANDOM 11/12/2020 MICROALBUMIN, RANDOM 08/09/2020 MICROALBUMIN, RANDOM 10/20/2019 CBC w DIFF 06/18/2021 CBC w DIFF 08/27/2021 CBC w DIFF 08/09/2020 CBC w DIFF 10/20/2019 CBC w DIFF 07/21/2019 CBC w DIFF 11/12/2020 CBC w DIFF 11/11/2022 CBC w DIFF 05/03/2020 CBC w DIFF 03/13/2019 CBC w DIFF 12/17/2021 CBC w DIFF 10/11/2018 CBC w DIFF 01/15/2020 CBC w DIFF 01/30/2019 CBC w DIFF 12/08/2019 CBC w DIFF 03/30/2018 CBC w DIFF 07/29/2022 CBC w DIFF 02/17/2021 SED RATE (ESR) 10/11/2018 SED RATE (ESR) 12/08/2019 MONO TEST (HETEROPHILE AB) 12/27/2019 URINALYSIS (UA) 10/11/2018 LYME DISEASE IgG/IgM WB 12/27/2019 CT ABD & PELVIS WITH CONTRAST 12/20/2017 XR LUMBAR SPINE 4+ VIEWS 10/19/2017 US RENAL BILATERAL 02/17/2021 US RENAL BILATERAL 08/04/2017 US URINARY BLADDER 02/17/2021 US URINARY BLADDER 08/04/2017 Echocardiogram 12/27/2019 Stress Test 03/30/2018 CBC WITH AUTO DIFF 08/26/2023 CBC WITH AUTO DIFF 04/25/2024 CBC WITH AUTO DIFF 10/13/2023 CBC WITH AUTO DIFF 03/12/2023 Uric Acid 03/12/2023 Lipid Panel 03/12/2023 Lipid Panel 08/26/2023 Lipid Panel 12/17/2021 Lipid Panel 10/13/2023 Microalbumin, Random 10/13/2023 Microalbumin, Random 08/26/2023 Hemoglobin A1c 10/13/2023 Hemoglobin A1c 08/09/2020 Hemoglobin A1c 08/26/2023 Hemoglobin A1c 12/17/2021 Next Appt Details Provider Name:Miko Elias, 10/17/2024 10:00:00 AM, [address] [place] [address] [address], [address], [place], [address], Insurance Providers Payer Name Payer Address Payer Phone Subscriber Number Group Number Insured Name Patient Relationship to Insured Coverage Start Date Coverage End Date [employer] [address] [place] [address] [id number] Sylvester Rock Self - patient is the insured MEDICAID [address] [place], [place] [id number] Sylvester Rock Self - patient is the insured MEDICARE [facility] [address] [place] [address] [id number] Sylvester Rock Self - patient is the insured Medical (General) History Medical History History ICD Code depression gout hypertension, benign cataracts sleep apnea diabetes mellitus 2007 allergies fractured left tibia May 30, 2013 hypertriglyceridemia low back pain September 2017 Nephrolithiasis Surgical History Surgery Date(Month/Year) tooth extraction 08/2021 right kidney stone removal 08/11/2017 fractured left tibia repair May 2013 left knee surgery Hospitalization History Reason Date(Month/Year) fall with facial laceration and sutures 07/2023 chest pain 08/2018
--- OUTSIDE RECORDS SUMMARY | 2024-05-29 11:16 | XMS_ITS ---
Author Name [facility] [place] Organization [facility] [place] Address [address] [place] [address] Care Team Providers Care Crane Engineer Name Role Phone GENESIS ZEPEDA Primary Care Provider Unavailabl e Insurance Providers: All historical and current Section Date Range: From patient's date of to the date document was created. This section includes the names of all active insurance providers for the patient. Insurance Provider Type of Coverage Plan Name Start of Policy Coverage End of Policy Coverage Group Number Member ID Insurance Provider's Telephone Number Policy Bardales's Name Patient's Relationship to Policy Bardales MEDICARE (WNR) MEDICARE (M) PART B Jun 24, 2011 PART B [id number] LEXY COBOS PATIENT MEDICARE (WNR) MEDICARE (M) PART A Jun 24, 2009 PART A [id number] LEXY COBOS PATIENT Selected Encounter This section includes the information on record at [place] for the Encounter. Date/Time Encounter Type Encounter Description Reason Provider Source Jan 05, 2024 09:30 AM [facility] OPHTH IMG OPTIC NERVE OPTOMETRY ICD-10-CM H40.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, low risk, bilateral MARLEN CORTEZ Rafael Encounter Template Text not used by [place] Assessments - Encounter Diagnoses This section includes the primary and secondary diagnoses documented for the Encounter. Date/Time Primary/Secondary Diagnosis Diagnosis Name Provider Source Jan 06, 2024 03:14 PM PRIMARY Open angle with borderline findings, low risk, bilateral MARLEN CORTEZ [facility] Plan of Treatment: Future Appointments (+ 6 months) and Future Tests (+/- 45 days) The Plan of Treatment section includes future care activities for the patient [facility] [place] [facility] This section includes future appointments and future orders which are active, pending or scheduled. Future Appointments This section includes appointments that were scheduled to occur 6 months from the date of the Encounter, up to a maximum of 20 appointments. The data comes from all [place] treatment facilities. Appointment Date/Time Appointment Type Appointme nt Facility Name Jun 29, 2024 09:30 AM AMBULATORY - MEDICINE [facility] Social History: Smoking Status (Most current) and Tobacco Use (All prior to encounter date) This section includes the most current, and the historical, smoking and tobacco- related health factors from the [place] facility where the Encounter took place. Current Smoking Status This section includes the most current smoking, or tobacco-related health factor, from the [place] facility where the Encounter took place. Date/Time Current Smoking Status Comment Preeti ity Jun 24, 2020 10:34 AM [place]-TOBACCO QUIT 15 YRS OR MORE [facility] Tobacco Use History This section includes a history of the smoking, or tobacco-related health factors, that were collected on or before the date of the Encounter. The data comes from the [place] facility where the Encounter took place. Date/Time Smoking Status/Tobacco Use Comment F acility Jun 24, 2020 10:34 AM [place]-TOBACCO QUIT 15 YRS OR MORE [facility] Jul 30, 2017 10:47 AM QUIT TOBACCO USE > 7 YEARS AGO [facility] Encounter Notes: All associated encounter notes This section contains the clinical notes associated to the Encounter. Date/Time Encounter Note(s) Provider Source Jan 05, 2024 08:54 AM OPTOMETRY CONSULT: LOCAL TITLE: CONSULT REPORT/OPTOMETRY OCT STANDARD TITLE: OPTOMETRY CONSULT DATE OF NOTE: JAN 05, 2024@08:54 ENTRY DATE: JAN 05, 2024@08:55:04 AUTHOR: DEE DEE WALKER EXP COSIGNER: MARLEN CORTEZ URGENCY: STATUS: COMPLETED CONSULT REPORT/OPTOMETRY OCT Has ADDENDA RNFL OCT report: RNFL OCT reviewed for low risk primary open angle glaucoma suspect OU secondary to moderate cupping OU. OD: average c/d 0.54, vertical c/d 0.53, disc area 1.43 mm^2. Average RNFL thickness 94 microns. Borderline thinning noted inferiorly. No thinning noted all other quadrants. OS: average c/d 0.48, vertical c/d 0.51, disc area 1.54 mm^2. Average RNFL thickness 99 microns. No thinning noted all quadrants. RNFL symmetry 76%. Overall stable to previous. A/P: 1. 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 Patient ed on condition and findings. IOP today normotensive with above average pachymetry. OCT RNFL taken today overall stable to previous scans. No family history, pseudoexfoliation or pigment dispersion. Continue to monitor annually with repeat . /marine/ DEE DEE WALKER OPTOMETRY STUDENT Signed: 01/06/2024 16:32 /marine/ MARLEN CORTEZ OD SPORTS BOOKMAKER Cosigned: 01/07/2024 08:17 01/07/2024 ADDENDUM STATUS: COMPLETED The optometry international logistics coordinator participated in this exam. I saw this in conjunction with the optometry student. The visual images were captured by the optometry health test technician. Results of testing assessed by the student and reviewed by myself. 's history, complaints and student's findings and plan reviewed. I reviewed and agree with the stated findings, assessment and plan. I have added/edited the documentation to reflect my exam findings and changes to the assessment and plan. /marine/ MARLEN CORTEZ OD SPORTS BOOKMAKER Signed: 01/07/2024 08:18 DEE DEE WALKER [place] [facility]
--- OUTSIDE RECORDS SUMMARY | 2024-05-29 11:16 | XMS_ITS ---
Author Organization Miko Elias III, MD Address [address] [place] [address] [place] [address] Care Team Providers Care Interventional Physician Name Role Phone Miko Elias Primary Care Provider Reason For Referral Reason LLL opacities eval uate and treat Diagnosis 1 Former smoker (Z87.8 91) Diagnosis 2 Chronic cough (R05.3 ) Referral Organization Miko Elias III, MD Referring Provider First Name Miko Referring Provider Last Name Jada Referring Provider Speciality Internal M edicine Referred Provider [facility], Pulmonology Referred Provider Specialty Pulmonary [facility] General Notes Tonia Singletary CMA 04/26 11:10:04 AM >ref/demo/progress note/labs/cxr faxed to [facility] . called made patient appt with Dr Armstrong for 05/29/2024 at 10:45am info called and mailed to patient Referral Priority Routine Referral Appointment Date 05/29/2024 Medications Medication SIG (Take, Route, Frequency, Duration) Notes Start Date End Date Status Ciprofloxacin HCl 250 MG 1 tablet Orally every 12 hrs for 7 days 04/26/2024 05/03/2024 Active Social History Sex Assigned At : Social History Observation Description Sex Assigned At Male Encounters Encounter Location Date Provider Diagnosis Miko Elias III, MD [address] [place] [address] [place] [address] 04/26/2024 Miko Elias Former smoker Z87.891 and Chronic cough R05.3 Assessments Encounter Date Diagnosis (ICD Code) Assessment Notes Treatment Notes Treatment Clinical Notes 04/26/2024 Former smoker (ICD-10 - Z87.891) 04/26/2024 Chronic cough (ICD-10 - R05.3) Plan Of Treatment Medication Medication Name Sig Start Date Stop Date Notes Ciprofloxacin HCl 250 MG 1 tablet Orally every 12 hrs for 7 days 04/26/2024 05/03/2024 Referrals Referral Date Details 04/26/2024 04/26/2024, [facility] Details Provider Name:Miko Elias, 10/17/2024 10:00:00 AM, [address] [place] [address] [address], [place], [address], Progress Notes * Sylvester ROCK EDOB:[birth year] (78 yo M)Acc No.[id number]:04/26/2024 Patient:?Sylvester ROCK E :1945???Age:78 Y???Sex:Male Address:[address] [place] [address] , [place] [address] * Refills? Start Ciprofloxacin HCl Tablet, 250 MG, Orally, 14 Tablet, 1 tablet, every 12 hrs, 7 days, Refills=0 Subjective: * Chief Complaints: * ??? * Medical History:? * Surgical History:? * Hospitalization/Major Diagno stic Procedure:? * Medications:? Objective: * Vitals:? * Physical Examination:? Assessment: * Assessment: 1.?Former smoker - Z87.891?? ?2.?Chronic cough - R05.3??? Plan: * Treatment: 2.?Chronic cough? [facility]Pulmonary Diseases ?Reason:LLL opacities evaluate and treat 3.?Others? Start Ciprofloxacin HCl Tablet, 250 MG, 1 tablet, Orally, every 12 hrs, 7 days, 14 Tablet, Refills 0.?? * Procedure Codes:? * true * Date:? Generated for Lindsay jack/Stella/Jeniffersmitting on:?05/29/2024 11:15 AM EST Consultation Request Notes Referral Date Referring Provider Referred Provider Not marine 04/26/2024 Jada [facility], Pulmonology LLL opacities evaluate and treat
--- OUTSIDE RECORDS SUMMARY | 2024-05-29 11:16 | XMS_ITS ---
Author Name [facility] Address [address] [place] [address] Care Team Providers Care Safety Companion Name Role Phone GENESIS ZEPEDA Primary Care [...] PART B Jun 24, 2011 PART B [id number] LEXY COBOS PATIENT MEDICARE (WNR) MEDICARE (M) PART A Jun 24, 2009 PART A [id number] LEXY COBOS PATIENT Selected Encounter This section includes the information on record at [place] for the Encounter. Date/Time Encounter Type Encounter Description Reason Pro vider Source Jun 25, 2023 01:18 PM Outpatient Encounter ADMIN PAT ACTIVTIES (MASNONCT) I[facility] Encounter Template Text not used by [place] Plan of Treatment: Future Appointments (+ 6 months) and Future Tests (+/- 45 days) The Plan of Treatment section includes future care activities for the patient from all [facility]. This section includes future appointments and future orders which are active, pending or scheduled. Future Appointments This section includes appointments that were scheduled to occur 6 months from the date of the Encounter, up to a maximum of 20 appointments. The data comes from all [place] treatment facilities. Appointment Date/Time Appointment Type Appointme nt Facility Name Jun 29, 2023 10:00 AM AMBULATORY - MEDICINE [facility] Social History: Smoking Status (Most current) and Tobacco Use (All prior to encounter date) This section includes the most current, and the historical, smoking and tobacco- related health factors from the [place] facility where the Encounter took place. Current Smoking Status This section includes the most current smoking, or tobacco-related health factor, from the [place] facility where the Encounter took place. Date/Time Current Smoking Status Comment Facil ity Jun 24, 2020 10:34 AM [place]-TOBACCO FORMER USER [facility] Tobacco Use History This section includes a history of the smoking, or tobacco-related health factors, that were collected on or before the date of the Encounter. The data comes from the [place] facility where the Encounter took place. Date/Time Smoking Status/Tobacco Use Comment F acility Jun 24, 2020 10:34 AM [place]-TOBACCO QUIT 15 YRS OR MORE [facility] Jul 30, 2017 10:47 AM QUIT TOBACCO USE > 7 YEARS AGO [facility] Encounter Notes: All associated encounter notes This section contains the clinical notes associated to the Encounter. Date/Time Encounter Note(s) Provider Source Jun 25, 2023 01:19 PM ADMINISTRATIVE NOTE: LOCAL TITLE: CCC: SCHEDULING ADMINISTRATION STANDARD TITLE: ADMINISTRATIVE NOTE DATE OF NOTE: JUN 25, 2023@13:19:20 ENTRY DATE: JUN 25, 2023@13:19:20 AUTHOR: YENNIFER SANDERSON EXP COSIGNER: URGENCY: STATUS: COMPLETED CCC: SCHEDULING ADMINISTRATION Has ADDENDA Patient Demographics Patient Name: KATELYN COBOS Patient Primary Phone: [phone] Patient Primary Address: [address] [place] [address] [place] [address] Patient : 1945 Patient Age: 77 Caller/Recipient Relation to Patient: Self Administrative Administrative Note Reason: Other Administrative Note Comments: has an appt. with the pcp on 06/29, if labs are needed please enter orders and call to advise. He will do them the same day before his appt. /marine/ YENNIFER SANDERSON Signed: 06/25/2023 13:19 Receipt Acknowledged By: 06/25/2023 13:43 /marine/ IVONE ARANGO LPN PACT 10 06/25/2023 14:59 /marine/ SHARON RICHMOND RN REGISTERED NURSE 06/25/2023 ADDENDUM STATUS: COMPLETED Vet has outside pcp /marine/ IVONE ARANGO LPN PACT 10 Signed: 06/25/2023 13:44 YENNIFER SANDERSON [place] [facility]TR[facility] TRN [facility]
--- OUTSIDE RECORDS SUMMARY | 2024-05-29 11:16 | XMS_ITS ---
Author Organization Miko Elias III, MD Address [address] [place] [address] [address] [place] [address] Care Team Providers Care Information Services Vice President Name Role Phone Miko Elias Primary Care [...] Problem Status W/U Status Risk Notes Problem [id number] Simple chronic bronchitis (J41.0) Active confirmed His [...] Date Provider Diagnosis Miko Elias III, MD [address] [place] [address] DR [place], [place] [id number] 05/02/2024 Miko Elias Simple chronic bronchitis J41.0 [...] 1 Week, Reason: O V Provider Name:Miko Elias, 10/17/2024 10:00:00 AM, [address] [place] [address] , [place] [address], [place], [address], Progress Notes * Sylvester ROCK EDOB:[birth year] (78 yo M)Acc No.[id number]:05/02/2024 Progress Notes Patient:?Sylvester ROCK Provider:?Miko Elias MD :1945???Age:78 Y???Sex:Male Edison e:05/02/2024 Address:[address] [place] [address] , [id number] Subjective: * Chief Complaints: * ???Benign prosthetic hypertrophyCardiomyopathyHyperlipidemiaHypertensionDiabetesDepression * HPI: ???COVID-19 Screening:?Questions?Have you experienced fever, chills, cough, sore throat, shortness of breath, difficulty breathing, muscle aches, loss of taste or smell??No ?Have you been exposed to the virus within the last 10 days??No ?Have you travelled internationally in the last 10 days??No ?Have you been exposed to COVID-19 in the past??Yes ???:? The patient, a 78-year-old male, reported feeling unwell but has been showing signs of improvement. He was previously prescribed an antibiotic, Cipro, which he has been taking. The patient's symptoms are not clearly described, but he mentions that he is feeling better. The doctor has advised him to continue taking Cipro for another week, twice a day. * ROS:?General/Constitutional:?pain?only normal aches and pains.?Chills?denies.?Fatigue?admits.?Fever?denies.?ENT:?Decreased hearing?denies.?Respiratory:?Cough?Continued, prolonged, nonproductive.?Cardiovascular:?Chest pain with exertion?denies.?Dyspnea on exertion?denies.?Shortness of breath?denies.?Gastrointestinal:?Constipation?occasional.?Decreased appetite?denies.?Diarrhea?denies.?Heartburn?occasional.?Nausea?denies.?Rectal bleeding?denies.?Vomiting?denies.?Hematology:?bruising?denies.?petechiae?denies.?Swollen glands?none have been noted.?Genitourinary:?Frequent urination?once a night.?Musculoskeletal:?Muscle aches?denies.?Painful joints?denies.?Sciatica?denies.?Weakness?denies.?Skin:?Itching?denies.?Rash?denies.?Skin lesion(s)?denies.?Neurologic:?Difficulty speaking?denies.?Dizziness?denies.?Headache?denies.?Low back pain?denies.?Psychiatric:?Depressed mood?which is moderate.? * Medical History:? * Surgical History:?left knee surgery fractured left tibia repair May 2013right kidney stone removal 08/11/2017tooth extraction 08/2021 * Hospitalization/Major Diagno stic Procedure:?chest pain 08/2018fall with facial laceration and sutures 07/2023 * Family History:?Father: dece ased 25 yrs, [...] 10 years ?Additional Findings: Tobacco Non-User?Ex-cigarette smoker ???Drugs/Alcohol:?Drugs?Have you used drugs other than those for medical reasons in the past 12 months??Yes ?Alcohol Screen?Did you have a drink containing alcohol in the past year??Yes ?How often did you have a drink containing alcohol in the past year??Monthly or less (1 point) ?How many drinks did you have on a typical day when you were drinking in the past year??1 or 2 drinks (0 point) ?How often did you have 6 or more drinks on one occasion in the past year??Never (0 point) ?Points?1 ?Interpretation?Negative ???He was born in [place] and has been to [place] for 15 years. He has 1 stepson. 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 * Medications:?TakingFLUoxetin e HCl 20 MG Capsule TAKE 1 CAPSULE [...] the patient * Allergies:?Dexamethasone: an xiety and insomniaOxycodone: nausea, Stomach painno[Allergies Verified] Objective: * Vitals:?Ht: 69, Wt:180, BMI: 26.58, BP:140/70, HR:67, Temp:97.5, Wt-k.65. * ???Past Orders: ???Lab:Microalbumin, Random (Order Date - 04/25/2024) (Collection Date & Time - 04/25/2024 10:38 AM) ? Value Reference Range ?Creatinine Urine 168.08 - m g/dL ?Microalbumin Urine 30.0 - mg/L ?Microalbum Creatinine Ratio Ur 17.8 <30 - ug/mg cr ?Clinical Info: Sarah mchugh fast for 12-14 hours prior to having this labwork done. You may have black coffee or tea with no milk or sugar. May have water,Please have this testing 1 week prior to your next appointment,PLEASE FAX COMPLETED RESULTS TO [phone] ???Lab:Comprehensive [place]. P jay jay Fast (Order Date - 04/25/2024) (Collection Date & Time - 04/25/2024 10:43 AM) ? Value Reference Range ?Sodium 138 135-145 - mmo l/L ?Bilirubin Total 0.9 0.0- 1.0 - mg/dL ?Aspartate Amino Transferase 38 H 5-37 - U/L ?Alanine Aminotransferase 12 0-40 - U/L ?Total Protein 7.0 6.5-8. 0 - g/dL ?Albumin Level 4.3 3.5-5. 0 - g/dL ?Alkaline Phosphatase 58 39-117 - U/L ?Potassium 4.8 3.3-5.1 - mmol/L ?Chloride 103 96-108 - mm ol/L ?Carbon Dioxide 28 22-29 - mmol/L ?Anion Gap 12 12-20 - ?Blood Urea Nitrogen 17 H 9-16 - mg/dL ?Creatinine 1.09 0.5-1.4 - mg/dL ?Estimated Glomerular Filt Rate > 60 - ?Glucose Fasting 119 H 60-9 9 - mg/dL ?Calcium 9.6 8.4-10.2 - m g/dL ???Lab:Complete Blood Count Auto Diff (Order Date - 04/25/2024) (Collection Date & Time - 04/25/2024 10:43 AM) ? Value Reference Range ?White Blood Count 8.6 4. 8-10.8 - X10*3/uL ?Red Blood Count 3.93 L 4.60 -5.80 - X10*6/uL ?Hemoglobin 12.4 L 14.0-18.0 - g/dl ?Hematocrit 36.5 L 42.0-52.0 - % ?Mean Corpuscular Volume 92.9 80.0-98.0 - fL ?Mean Corpuscular Hemoglobin 31.6 27.0-33.0 - pg ?Mean Corpuscular HGB Conc 34.0 31.0-36.0 - g/dl ?Red Cell Distribution Width 14.6 11.0-16.0 - % ?Platelet Count 218 160-4 00 - X10*3/uL ?Mean Platelet Volume 10.6 9.4-12.4 - fL ?Neutrophils Percent Auto 52.4 45-73 - % ?Imm Gran Pct Auto 0.5 H 0. 0-0.4 - % ?Lymphocytes Percent Auto 31.6 20-40 - % ?Monocytes Percent Auto 9.6 2-11 - % ?Eosinophils Percent Auto 4.7 H 0-4 - % ?Basophils Percent Auto 1.2 0-2 - % ?NRBC Pct Auto 0.0 0.0-0. 2 - /100WBC ?Neutrophils Absolute Auto 4.5 2.0-8.3 - x10*3/uL ?Imm Gran Abs Auto 0.04 H 0. 00-0.03 - X10*3/uL ?Lymphocytes Absolute Auto 2.7 1.2-4.9 - X10*3/uL ?Monocytes Absolute Auto 0.8 0.1-1.2 - X10*3/uL ?Eosinophils Absolute Auto 0.4 0.0-0.4 - X10*3/uL ?Basophils Absolute Auto 0.1 0.0-0.2 - X10*3/uL ?NRBC Abs Auto 0.000 0.0-0. 012 - X10*3/uL ???Lab:Lipid Panel (Order Da te - 04/25/2024) (Collection Date & Time - 04/25/2024 10:43 AM) ? Value Reference Range ?Triglycerides 183 H <150 - mg/dL ?Cholesterol 120 <200 - m g/dL ?LDL Cholesterol Calculated 49 <100 - mg/dL ?HDL Cholesterol 35 L >40 - mg/dL ?Clinical Info: Pleas e fast for 12-14 hours prior to having this labwork done. You may have black coffee or tea with no milk or sugar. May have water,Please have this testing 1 week prior to your next appointment,PLEASE FAX COMPLETED RESULTS TO [phone] ???Lab:Hemoglobin A1c (Order Date - 04/25/2024) (Collection Date & Time - 04/25/2024 10:43 AM) ? Value Reference Range ?Hemoglobin A1c % 6.7 H <6. 0 - % ?Estimated Average Glucose 146 - mg/dL ?Clinical Info: Pleas e fast for 12-14 hours prior to having this labwork done. You may have black coffee or tea with no milk or sugar. May have water,Please have this testing 1 week prior to your next appointment,PLEASE FAX COMPLETED RESULTS TO [phone] * Examination: ???General Examination: ?GENERAL APPEARANCE:?pleasant, well nourished, well developed, in no acute distress, calm and relaxed, overweight, man.?HEAD:?atraumatic, normocephalic.?EYES:?eomi, perrla, anicteric, conjugate.?EARS:?normal.?NOSE:?septum intact.?ORAL CAVITY:?normal, unremarkable.?NECK/THYROID:?no jugular venous distention, no carotid bruit, thyroid normal.?LYMPH NODES:?no enlarged lymph nodes,spleen normal.?SKIN:?no suspicious lesions, anicteric.?HEART:?no clicks, gallops, murmurs, or rubs, regular rhythm, S1, S2 normal, no s3, or vascular bruits.?LUNGS:?, diminished breath sounds throughout, rhonchi on the RIGHT, rhonchi on the LEFT, good air movement.?BREASTS:??no masses palpable bilaterally.?ABDOMEN:?bowel sounds normal, no ascites, no organomegaly, no mass, overweight.?RECTAL EXAM:?not examined.?MUSCULOSKELETAL:?extremities unremarkable, no clubbing, cyanosis or edema.?PERIPHERAL PULSES:?normal.?NEUROLOGIC:?alert and oriented, cranial nerves 2-12 grossly intact, deep tendon reflexes 2+ symmetrical, motor strength normal upper and lower extremities, sensory exam intact.?PSYCH:?alert, oriented, anxious appearing, mood depressed.? Assessment: * Assessment: 1.?Simple chronic bronchitis - J41.0 (Primary)???Notes :His chest x-ray is unremarkable.? He received another course noman antibiotics at his request with a follow-up visit.???2.?Environmental allergies - Z91.09???Notes :He reports an increase in his allergic symptoms recently. We reviewed and adjusted. His allergy regimen.???3.?Depression - F32.9???Notes :. He occasionally has mild episodes of depressed feelings. This was present today but did not require additional treatment.???4.?Gout - M10.9???Notes :A uric acid level will be checked in the future. He has had no recent attacks of gout.???5.?Diabetes mellitus - E11.9???Notes :His fasting glucoses 119 his hemoglobin A1c is 6.1. We recommended additional weight loss but made no change in his regimen.???6.?Cardiomyopathy, unspecified type - I42.9???Notes :His cardiomyopathy is well compensated and he is not short of breath with the routine activities of daily living.???7.?Hyperlipidemia type II - E78.01???Notes :His total cholesterol was 120. No change in his regimen was needed.???8.?Former smoker - Z87.891???Notes :He is highly motivated not to smoke and we have discussed strategies for maintenance of abstinence.??? Plan: * Treatment: * Procedure Codes:? * Preventive Medicine:? ??Counseling:?Care goal follow-up plan:?Counseling for abnormal BMI given?Yes ?Above Normal BMI Follow-up?Dietary management education, guidance, and counseling, Dietary needs education ?Smoking/Tobacco Use?Patient counseled on the dangers of tobacco use and urged to quit.?05/02/2024 ??DM Care Plan:?Patient Lifestyle Goals?Patient wants to be able to manage diabetes without too much effort.?Treatment Goals?HbA1C < 7.0, Blood Sugars less than < 115.?Barriers?no barriers.?Self-Managment Goals?Work on weight loss, with a goal of losing 1 lb per week.? * Follow Up:?1 Week (Reason: O V) * Images: * Sign off status: Completed true * Provider:?Miko Elias MD Date:?04/23 Generated for Printi ng/Famarcyg/eTransmitting on:?05/29/2024 11:15 AM EST History and Physical Notes * HPI (History of Present Illness) Category Sub-Category Detail Notes COVID-19 Screening Questions Have you had any new onset fever, chills, cough, congestion, sore throat, shortness of breath, muscle aches?: No Have you been exposed to the virus withi n the last 10 days?: No Have you travelled internationally in [facility] last 10 days?: No Have you been [...]
--- OUTSIDE RECORDS SUMMARY | 2024-05-29 11:16 | XMS_ITS | Continuity of Care Document ---
Author Name [facility] Organization [facility] Care Team Providers Care Railroad Brakeman Name Role Phone [facility] Unavailable Unavailable Problems Combined list of problems from Department of Defense and Veterans Affairs facilities. It does not include entries that were removed or entered in error. Problem Status Onset Date Problem Type Date of Resolution Comments Source Colonoscopy Screening Active Condition May 13, 2018 Entered By: GENESIS ZEPEDA Comment: 10/13/17 - diverticulosis from cecum to sigmoid, ext hemorrhoids - Dr Lopes [facility] Coronary artery disease Active Condition [facility] Depression (SCT 28725898) Active Condition [facility] Diabetic peripheral vascular disease Active Condition [facility] Erectile dysfunction Active Condition [facility] [place] Erectile dysfunction (SNOMED CT 102887742) Active Condition [facility] Exsmoker Active Condition [facility] Gout (SCT 59226450) Active Condition [facility] History of left total knee replacement Active Condition [facility] Hypertension Active Condition [facility] Hypertriglyceridemia Active Condition [facility] Kidney Stones Active Condition Aug Entered By: GENESIS ZEPEDA Comment: Dr Kevin Solis [place] [facility] Primary Care Physician Active Condition Aug 27, 2017 Entered By: GENESIS ZEPEDA Comment: [facility] Entered By: GENESIS ZEPEDA Comment: fax [phone] [facility] Sleep Apnea (SCT 35050665) Active Condition October 01, 2017 Entered By: GENESIS ZEPEDA Comment: Since he lost a significant amount of weight, he no longer has this condition [facility] Type 2 diabetes mellitus Active [facility] [place] [facility] Diagnosis: ICD-10-CM H40.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, low risk, bilateral Active Diagnosis [facility] [place] [facility] Diagnosis: ICD-10-CM Z46.0 Encounter for fit/adjst of spectacles and contact lenses Active Diagnosis [facility] [place] [facility] Diagnosis: ICD-10-CM I10 Essential (primary) hypertension Active Diagnosis [facility] Diagnosis: ICD-10-CM E11.9 Type 2 diabetes mellitus without complications Active Diagnosis [facility] Medications Combined list of outpatient medications from Department of Defense and Veterans Affairs facilities.Medications provided include 1) outpatient medications from the last 15 months, and 2) patient-reported medications. Medication Details Route Status Patient Instructions Prescription Expires Prescription Number Last Dispense Date Ordering Provider Order Date Order Qty Source CARBOXYMETH YLCELLULOSE NA 0.5% SOLN,OPH INSTILL 1 DROP INTO EACH EYE FOUR TIMES A DAY FOR DRY EYE OPHTHA LMIC ACTIVE 01/05/2025 [id number] KAMALA CORTEZ 2023 45 [facility] LISINOPRIL 10MG TAB TAKE ONE TABLET BY MOUTH ONCE DAILY TO CONTROL BLOOD PRESSURE ORAL HOLD 08/13/2024 [id number] ALBINA ZEPEDA SA 2023 90 [facility] LISINOPRIL 10MG TAB TAKE ONE TABLET BY MOUTH ONCE DAILY TO CONTROL BLOOD PRESSURE ORAL DISCONT INUED 12/29/2023 [id number] ALBINA ZEPEDA SA 2022 30 [facility] METFORMIN HCL 1000MG TAB TAKE ONE TABLET BY MOUTH TWICE DAILY FOR TYPE 2 DIABETES MELLITUS ORAL 12/29/2023 [id number] 4 ALBINA ZEPEDA SA 2022 60 [facility] SILDENAFIL CITRATE 100MG TAB TAKE ONE TABLET BY MOUTH ONCE DAILY NEEDED TAKE 1 HOUR PRIOR TO SEXUAL ACTIVITY ORAL 12/29/2023 [id number] 4 KATELYNALBINA ARCE 2022 6 [place] [facility] [place] [facility] Immunizations Combined list of available immunizations from the Department of Defense and Veterans Affairs facilities. 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 Status Comments Source INFLUENZA, UNSPECIFIED FORMULATION 2019 88 complet ed [facility] ZOSTER RECOMBINANT 1 2018 187 complet ed [place] INFLUENZA, SEASONAL, INJECTABLE 2018 141 complet ed [facility] [place] [place] INFLUENZA, INJECTABLE, QUADRIVALENT 2017 158 complet ed Site: Left Deltoid [place] PNEUMOCOCCAL POLYSACCHARID E PPV23 2017 33 complet ed [place] TDAP 2017 115 complet ed Site: Left Deltoid [place] INFLUENZA, SEASONAL, INJECTABLE 2016 141 complet ed [facility] [place] [place] PNEUMOCOCCAL CONJUGATE PCV 13 2016 133 complet ed [facility] [place] [facility] INFLUENZA, SEASONAL, INJECTABLE 2016 141 complet ed [facility] [place] [facility] Vital Signs Combined list of inpatient and outpatient Vital Signs from Department of Defense and Veterans Affairs, ranging from 12 months to all on record, depending upon the facility. Vital Sign Value Date Comments Source SYSTOLIC BLOOD PRESSURE 124 06/29/19 24 10:05:43 [place] [facility] [place] [facility] DIASTOLIC BLOOD PRESSURE 75 024 10:05:43 [facility] [place] [facility] PULSE OXIMETRY 97 06/29/2023 10:05:43 [facility] [place] [facility] WEIGHT 180.8 06/29/2023 10:05:43 [facility] [place] [facility] BMI 26kg/m2 06/29/2023 10:05:43 [facility] PAIN 0 06/29/2023 10:05:43 [facility] [place] [facility] TEMPERATURE 98.2 06/29/2023 10:05:43 [facility] PULSE 84 06/29/2023 10:05:43 [facility] RESPIRATION 16 06/29/2023 10:05:43 [facility] Encounters Combined list of: 1) Encounters from Department of Veterans Affairs facilities going back up to thelast 18 months. 2) Encounters from the Department of Defense facilities going back up to 280 months. Location Location Details Encounter Type Encounter Number Reason For Visit Attending Provider ADM Date DC Date Status Disposition Source [facility] EYE EXAM&TX ESTAB PT 1/>VST [id number] Diagnos is: ICD-10- CM E11.9 Type 2 diabete s mellitu s without complic ations< br/> JAMES CORTEZ 12/25 [facility] CMPTR OPHTH IMG OPTIC NERVE [id number] Diagnos is: ICD-10- CM H40.013 Open angle with borderl ine finding s, low risk, bilater al
JAMES CORTEZ 12/25 [facility] Outpatient Encounter [id number] 12/28 [facility] En[facility] [id number] 12/28 [facility] Out[facility] En[facility] [id number] 03/24 [facility] Out[facility] Encounter [id number] 06/07 [facility] En[facility] [id number] 06/20 [facility] Outpatient Encounter [id number] 06/25 [facility] O/P EST MOD 30 MIN [id number] Diagnos is: ICD-10- CM I10 Essenti al (primar y) hyperte nsion<b r/> KATELYNLIS A YAZMIN 06/29 [place] [facility] Outpatient Encounter [id number] 12/27 [facility] Outpatient Encounter [id number] 12/27 [facility] COMPRE OPH EXAM EST PT 1/ [id number] Diagnos is: ICD-10- CM H40.013 Open angle with borderl ine finding s, low risk, bilater al
CORTEZ,LACE Y J 01/04 [facility] FIT SPECTACLES MONOFOCAL [id number] Diagnos is: ICD-10- CM Z46.0 Encount er for fit/adj st of spectac les and contact lenses< br/> CORTEZ,LACE Y J 01/04 [facility] CMPTR OPHTH IMG OPTIC NERVE [id number] Diagnos is: ICD-10- CM H40.013 Open angle with borderl ine finding s, low risk, bilater al
CORTEZ,LACE Y J 01/04 [facility] [place] [place] Social History Combined list of available smoking, tobacco, and other social history from Department of Defense and Veterans Affairs facilities. Social History Type Response Date Comment Sour e Tobacco smoking status NHIS [facility]-TOBACCO FORMER USER 06/29/2023 [facility] History of tobacco use MI-TOBACCO QUIT 15 YRS OR MORE 06/29/2023 [facility] History of tobacco use VA-TOBACCO NEVER USED 06/30/2022 [facility] D History of tobacco use MI-TOBACCO FORMER USER 07/02/2021 [facility] History of tobacco use MI-TOBACCO QUIT 15 YRS OR MORE 06/24/2020 [facility] History of tobacco use MI-TOBACCO QUIT 15 YRS OR MORE 09/12/2018 [facility] History of tobacco use QUIT TOBACCO USE > 7 YEARS AGO 07/30/2017 [facility] Plan of Care List of future care activities from Department of Veterans Affairs facilities. Additional future care activities may be listed in the Assessment and Plan section. Date/Time Care Activity Care Activity Detail Facili ty 06/29/2024 AMBULATORY - MEDICINE AMBULATORY - MEDICI NE [facility]
--- OUTSIDE RECORDS SUMMARY | 2024-05-29 11:16 | XMS_ITS | Encounter Summary ---
Author Name [facility] Address [address] [place] [address] Care Team Providers Care Lumber Scaler Name Role Phone GENESIS ZEPEDA Primary Care [...] PART B Jun 24, 2011 PART B [id number] [id number] LEXY COBOS PATIENT MEDICARE (WNR) MEDICARE (M) PART A Jun 24, 2009 PART A [id number] 84A LEXY COBOS PATIENT Selected Encounter This section includes the information on record at MD for the Encounter. Date/Time Encounter Type Encounter Description Reason Provider Source Jun 29, 2023 10:00 AM OFFICE O/P EST MOD 30 MIN PRIMARY CARE/MEDICINE ICD-10-CM I10 Essential (primary) hypertension GENESIS ZEPEDA Encounter Template Text not used by MD Assessments - Encounter Diagnoses This section includes the primary and secondary diagnoses documented for the Encounter. Date/Time Primary/Secondary Diagnosis Diagnosis Name Provider Source Jun 29, 2023 10:19 AM PRIMARY Essential (primary) hypertension GENESIS ZEPEDA Jun 29, 2023 10:19 AM SECONDARY Hyperlipidemia, unspecified GENESIS ZEPEDA [facility] Jun 29, 2023 10:19 AM SECONDARY Male erectile dysfunction, unspecified GENESIS ZEPEDA YAZMIN [facility] Jun 29, 2023 10:19 AM SECONDARY Sleep apnea, unspecified GENESIS ZEPEDA [facility] Jun 29, 2023 10:19 AM SECONDARY Type 2 diabetes mellitus without complications KATELYNGENESIS YAZMIN [facility] Social History: Smoking Status (Most current) and Tobacco Use (All prior to encounter date) This section includes the most current, and the historical, smoking and tobacco- related health factors from the [place] facility where the Encounter took place. Current Smoking Status This section includes the most current smoking, or tobacco-related health factor, from the [place] facility where the Encounter took place. Date/Time Current Smoking Status Comment Facil ity Jun 29, 2023 10:00 AM VA-TOBACCO FORMER USER [facility] Tobacco Use History This section includes a history of the smoking, or tobacco-related health factors, that were collected on or before the date of the Encounter. The data comes from the [place] facility where the Encounter took place. Date/Time Smoking Status/Tobacco Use Comment F acility Jun 29, 2023 10:00 AM VA-TOBACCO QUIT 15 YRS OR MORE [facility] Jun 30, 2022 02:30 PM VA-TOBACCO NEVER USED [facility] Jul 02, 2021 09:30 AM VA-TOBACCO FORMER USER [facility] Jul 02, 2021 09:30 AM VA-TOBACCO QUIT 15 YRS OR MORE [facility] Sep 12, 2018 09:06 AM VA-TOBACCO FORMER USER [facility] Sep 12, 2018 09:06 AM VA-TOBACCO QUIT 15 YRS OR MORE [facility] Encounter Notes: All associated encounter notes This section contains the clinical notes associated to the Encounter. Date/Time Encounter Note(s) Provider Source Jun 29, 2023 10:06 AM PREVENTIVE MEDICIN E NURSING NOTE: LOCAL TITLE: CLINICAL REMINDERS/NURSING STANDARD TITLE: PREVENTIVE MEDICINE NURSING NOTE DATE OF NOTE: JUN 29, 2023@10:06 ENTRY DATE: JUN 29, 2023@10:07 AUTHOR: IVONE ARANGO COSIGNER: URGENCY: STATUS: COMPLETED Advance Directive Screen MH AD: Patient does not have a completed advance directive on file at any facility, VA or outside. S/he is not interested in completing one at this time. The patient received education about Advance Directives and written notification of his/her rights. Suicide Screen: C-SSRS Screening [place] Suicide Severity Rating Scale (C-SSRS) screener 1. Over the past month, have you wished you were or wished you could go to sleep and not wake up? No 2. Over the past month, have you had any actual thoughts of killing yourself? No 3. Over the past month, have you been thinking about how you might do this? Response not required due to responses to other questions. 4. Over the past month, have you had these thoughts and had some intention of acting on them? Response not required due to responses to other questions. 5. Over the past month, have you started to work out or worked out the details of how to kill yourself? Response not required due to responses to other questions. 6. If yes, at any time in the past month did you intend to carry out this plan? Response not required due to responses to other questions. 7. In your lifetime, have you ever done anything, started to do anything, or prepared to do anything to end your life (for example, collected pills, obtained a gun, gave away valuables, went to the roof but didn't jump)? No 8. If YES, was this within the past 3 months? Response not required due to responses to other questions. Toxic Exposure Screening: The /caregiver was asked if they believe the experienced any toxic exposure(s), such as Airborne Hazards and Open Burn Pit, [place] War related exposures, Agent Mcdonald, Radiation, contaminated water at [place] or other such exposures, while serving in the Armed Forces. [place] has no concerns about toxic exposure(s) while serving in the Armed Forces. The [place]/caregiver was informed that we will continue to ask this screening question every 5 years. They can contact their provider/healthcare team if they have concerns about exposures and would like to be screened sooner. Printed information was offered and provided if desired. Depression Screening: Perform PHQ-2 A PHQ-2 screen was performed. The score was 0 which is a negative screen for depression. Over the past two weeks, how often have you been bothered by the following problems? 1. Little interest or pleasure in doing things Not at all 2. Feeling down, depressed, or hopeless Not at all Falls & Incontinence Screen: Falls Screen: 4. No falls within the past year. Incontinence Screen No incontinence. Tobacco Use Screening: The patient is a former tobacco user. The patient quit fifteen or more years ago. Influenza Immunization: The patient declines to receive the recommended dose of seasonal influenza vaccine. Immunization: INFLUENZA, UNSPECIFIED FORMULATION Refusal Reason: PATIENT DECISION Patient refuses all immunization(s) in the FLU group Date Documented: 06/29/23 10:08 Alcohol Use Screen (AUDIT-C): Alcohol Screen: SCREEN FOR ALCOHOL (AUDIT-C) An alcohol screening test (AUDIT-C) was negative (score=1). 1. How often did you have a drink containing alcohol in the past year? Consider a drink to be a 12 ounce can or bottle of regular beer, 8 ounces of malt liquor, a 5 ounce glass of table wine, or a 1.5 ounce shot of liquor (like scotch, gin, or vodka). Monthly or less 2. How many drinks containing alcohol did you have on a typical day when you were drinking in the past year? One or two drinks 3. How often did you have six or more drinks on one occasion in the past year? Never COVID-19 Immunization: Defer vaccine, reassess in 1 year Reason: decline Herpes Zoster (Shingles) Vaccine: The patient declines to receive the recommended dose of zoster (shingles) vaccine. Immunization: ZOSTER RECOMBINANT Refusal Reason: PATIENT DECISION Patient refuses all immunization(s) in the ZOSTER group Date Documented: 06/29/23 10:09 Sexual Orientation: The patient thinks of their sexual orientation as: Straight or Heterosexual RHS Screen: RHS Screen Session Format: Face to Face Environmental Check Upon inquiry, the individual reports that the environment is safe to proceed. Informed Consent to Screen and Document The individual does NOT consent to proceed with screening. PAVE Foot Check: Patient refused limb care exam. : decline The patient was advised the [place] mandates all patients with diabetes mellitus, end stage renal disease, peripheral vascular disease, or sensory neuropathy should have a complete foot check completed annually. This includes a visual exam of the skin, pedal pulses and a sensory exam. Patients with any abnormality noted during the foot check should be referred to a specialist. /marine/ IVONE ARANGO LPN PACT 10 Signed: 06/29/2023 10:11 CONCHITAIVONE GALDAMEZ Jun 29, 2023 06:17 AM PHYSICIAN NOTE: LOCAL TITLE: MD NOTE STANDARD TITLE: PHYSICIAN NOTE DATE OF NOTE: JUN 29, 2023@06:17 ENTRY DATE: JUN 29, 2023@06:17:35 AUTHOR: GENESIS ZEPEDA COSIGNER: URGENCY: STATUS: COMPLETED HISTORY OF PRESENT ILLNESS: KATELYN KEVIN COBOS, is a 77 yo MALE [place], who presents at the [facility] for his annual visit. He maintains a nonVA PCP: Dr Miko Elias in [place] whom he sees Q3 mths. [place] utilizes optometry and pharmacy services at the [place]. Active problems - Computerized Problem List is the source for the followin. Diabetic peripheral vascular disease 2. History of left total knee replacement 3. Type 2 diabetes mellitus 4. Erectile dysfunction 5. Hypertension 6. Exsmoker 7. Colonoscopy Screening 8. Primary Care Physician 9. Kidney Stones 10. Hypertriglyceridemia 11. Depression 12. Gout 13. Coronary artery disease 14. Sleep Apnea The following VA and Non-VA meds were reconciled with patient: Active Outpatient Medications (including Supplies): Issue Date Status Last Fill Active Outpatient Medications Refills Expiration ======= 1) ASPIRIN 81MG EC TAB Qty: 120 for 90 ACTIVE Issu:12-28-22 days Sig: TAKE ONE TABLET BY MOUTH Refills: 3 Last:12-28-22 ONCE DAILY TO PREVENT STROKE/HEART Expr:12-29-23 ATTACK 2) ATORVASTATIN CALCIUM 20MG TAB Qty: 15 ACTIVE Issu:12-28-22 for 30 days Sig: TAKE ONE-HALF TABLET Refills: 11 Last:12-28-22 BY MOUTH AT BEDTIME Expr:12-29-23 3) LANCET,SOFTCLIX Qty: 100 for 90 days ACTIVE Issu:12-28-22 Sig: USE 1 LANCET DIRECTED TWICE A Refills: 1 Last:12-28-22 DAY TWO TIMES A WEEK NEEDED TO TEST Expr:12-29-23 BLOOD SUGAR 4) LISINOPRIL 10MG TAB Qty: 30 for 30 days ACTIVE Issu:12-28-22 Sig: TAKE ONE TABLET BY MOUTH ONCE Refills: 7 Last:06-09-23 DAILY TO CONTROL BLOOD PRESSURE Expr:12-29-23 5) METFORMIN HCL 1000MG TAB Qty: 60 for 30 ACTIVE Issu:12-28-22 days Sig: TAKE ONE TABLET BY MOUTH Refills: 9 Last:03-19-23 TWICE DAILY FOR TYPE 2 DIABETES Expr:12-29-23 MELLITUS 6) METOPROLOL TARTRATE 100MG TAB Qty: 60 ACTIVE Issu:12-28-22 for 30 days Sig: TAKE ONE TABLET BY Refills: 11 Last:12-28-22 MOUTH TWICE DAILY FOR BLOOD Expr:12-29-23 PRESSURE/HEART 7) SILDENAFIL CITRATE 100MG TAB Qty: 6 for ACTIVE Issu:12-28-22 30 days Sig: TAKE ONE TABLET BY MOUTH Refills: 9 Last:06-09-23 ONCE DAILY NEEDED TAKE 1 HOUR Expr:12-29-23 PRIOR TO SEXUAL ACTIVITY ALLERGIES: ========= Patient has answered NKA HISTORY: PERIOD OF SERVICE - [facility] [employer] FROM Nov TO Nov COMBAT SERVICE INDICATED: No VITAL SIGNS: Blood Pressure 124/75 (06/29/2023 10:05) Pulse 84 (06/29/2023 10:05) Respiration 16 (06/29/2023 10:05) Pulse Oximetry 97% (06/29/2023 10:05) Temperature 98.2 F [36.8 C] (06/29/2023 10:05) Pain 0 (06/29/2023 10:05) Height 70 in [177.8 cm] (06/29/2023 10:06) Weight 180.8 lb [82.01 kg] (06/29/2023 10:05) BMI BMI: 26.0 REVIEW OF SYSTEMS: CARDIOVASCULAR: No chest pain RESPIRATORY: No SOB, no wheezing GASTROINTESTINAL: No abd pain, no N/V/D GENITOURINARY: No polyuria MUSCULOSKELETAL: No joint pain, no joint swelling PSYCHIATRIC: No anxiety, no trouble sleeping, no depression NEUROLOGIC: No H/A, no numbness, no weakness, no tingling EXAMINATION: GENERAL: WD/WN , pleasant & in NAD HEENT: Moist mucosa NECK: Supple, no carotid bruits HEART: RRR, S1-S2, no murmurs LUNGS: CTA B/L, no wheezes ABDOMEN: Soft, NT/ND, + BS x 4 Quads PERIPH PULSES: 2+ B/L EXTREMITIES: FROM x 4, no edema NEUROLOGIC: AAO x3, no focal findings PSYCHIATRIC: Good eye contact, affect normal ASSESSMENT/PLAN: 1. Hypertension: well controlled on lisinopril 10mg/day and metoprolol tartrate 100mg BID 2. Mixed Hyperlipidemia: on atorvastatin 10mg/QHS and Fish Oil 4 caps/day 3. DM Type 2: well controlled on metformin 1000mg BID Eye Exam: 12/25/22 - [facility] - neg DR Foot Exam: 04/14/19 - Dr Vines - + DM/PVD, overdue, vet will schedule Microalbuminuria: 2022 - negative per vet 4. Depression: stable on prozac 20mg/day 5. Erectile Dysfunction: on sildenafil 100mg/day prn 6. PND: on fluticasone NS daily FOLLOW UP: 1 year - Annual - vet to bring PCP labs ========= UPCOMING APPOINTMENTS: 01/03/2024 09:00 NHM/OPT/VISUAL IMAGING 01/05/2024 08:00 NHM/OPTOMETRY/CORTEZ/ No barriers; Patient understands and agrees to current treatment plan. If pt has any questions, concerns, or changes in current health status he/she will call or come in to the VA. Medication Reconciliation: Outpatient: Has the patient been taking medications as documented in the EMLR? YES: The patient has been taking medications as documented in the EMLR. Essential Medication List for Review used to complete this medication reconciliation. INCLUDED IN THIS LIST: Alphabetical list of active outpatient prescriptions dispensed from this VA (local) and dispensed from another VA or DoD facility (remote) as well as inpatient orders (local, pending and active), local clinic medications, locally documented non-VA medications, and local prescriptions that have or been discontinued in the past 90 days. - All changes in medications, including all non-VA/Herbal/OTC medications were entered into CPRS. - If there were any medications the patient should no longer take, they were discontinued. - The patient/caregiver was instructed to update this list, discard old lists, and take this list to the next appointment, whether with a VA or non-VA provider. JLV Link Data on this list may not be complete. Please check JLV. Allergies/ADRs (Tool #5) FACILITY ALLERGY/ADR -------- No Remote Allergy/ADR Data available for this patient [facility] [place] [facility] No Known Allergies Med Recon NoGlossary (Tool #1) INCLUDED IN THIS LIST: Alphabetical list of active outpatient prescriptions dispensed from this VA (local) and dispensed from another VA or DoD facility (remote) as well as inpatient orders (local pending and active), local clinic medications, locally documented non-VA medications, and local prescriptions that have or been discontinued in the past 90 days. Non-VA Meds Last Documented On: Jul 02, 2021 NOTE The display of VA prescriptions dispensed from another VA or DoD facility (remote) is limited to active outpatient prescription entries matched to National Drug File at the originating site and may not include some items such as investigational drugs, compounds, etc. NOT INCLUDED IN THIS LIST: Medications self-entered by the patient into personal health records (i.e. [employer]) are NOT included in this list. Non-VA medications documented outside this VA, remote inpatient orders (regardless of status) and remote clinic medications are NOT included in this list. The patient and provider must always discuss medications the patient is taking, regardless of where the medication was dispensed or obtained. ------ OUTPT ASPIRIN 81MG EC TAB (Status = Active) TAKE ONE TABLET BY MOUTH ONCE DAILY TO PREVENT STROKE/HEART ATTACK Rx# [id number] Last Released: 12/30/22 Qty/Days Supply: 120/90 Rx Expiration Date: 12/29/23 Refills Remainin Indication: FOR BLOOD CLOT PREVENTION FOLLOWING PCI OUTPT ATORVASTATIN CALCIUM 20MG TAB (Status = Active) TAKE ONE-HALF TABLET BY MOUTH AT BEDTIME Rx# [id number] Last Released: 12/30/22 Qty/Days Supply: Rx Expiration Date: 12/29/23 Refills Remainin Indication: FOR HIGH CHOLESTEROL OUTPT LISINOPRIL 10MG TAB (Status = Active) TAKE ONE TABLET BY MOUTH ONCE DAILY TO CONTROL BLOOD PRESSURE Rx# [id number] Last Released: 06/11/23 Qty/Days Supply: Rx Expiration Date: 12/29/23 Refills Remainin Indication: FOR HIGH BLOOD PRESSURE OUTPT METFORMIN HCL 1000MG TAB (Status = Active) TAKE ONE TABLET BY MOUTH TWICE DAILY FOR TYPE 2 DIABETES MELLITUS Rx# [id number] Last Released: 03/22/23 Qty/Days Supply: Rx Expiration Date: 12/29/23 Refills Remainin Indication: FOR TYPE 2 DIABETES MELLITUS OUTPT METOPROLOL TARTRATE 100MG TAB (Status = Active) TAKE ONE TABLET BY MOUTH TWICE DAILY FOR BLOOD PRESSURE/HEART Rx# [id number] Last Released: 12/30/22 Qty/Days Supply: Rx Expiration Date: 12/29/23 Refills Remainin Indication: FOR HIGH BLOOD PRESSURE OUTPT SILDENAFIL CITRATE 100MG TAB (Status = Active) TAKE ONE TABLET BY MOUTH ONCE DAILY NEEDED TAKE 1 HOUR PRIOR TO SEXUAL ACTIVITY Rx# [id number] Last Released: 06/11/23 Qty/Days Supply: 11/20 Rx Expiration Date: 12/29/23 Refills Remainin Indication: FOR ERECTILE DYSFUNCTION ------ SUPPLIES ------ OUTPT LANCET,SOFTCLIX (Status = Active) USE 1 LANCET DIRECTED TWICE A DAY TWO TIMES A WEEK NEEDED TO TEST BLOOD SUGAR Rx# [id number] Last Released: 12/30/22 Qty/Days Supply: /90 Rx Expiration Date: 12/29/23 Refills Remainin Diabetes: Kidney Health Evaluation: Last eGFR: EGFR No data available for: eGFR(CKD-EPI 2020) eGFR Last uACR: No uACR found within the past year eGFR and uACR (estimated Glomerular Filtration Rate and Urine Albumin-Creatinine Ratio)* Patient declines having lab(s) done Comment: nonVA PCP orders this test Hemoglobin A1C: Patient declines Hemoglobin A1C testing at this time. /marine/ GENESIS ZEPEDA MD Primary Care Physician Signed: 06/29/2023 11:07 GENESIS ZEPEDA [facility]
--- OUTSIDE RECORDS SUMMARY | 2024-05-29 11:16 | XMS_ITS ---
Author Name [facility] [place] Address [address] [place] [address] Care Team Providers Care Android Programmer Name Role Phone GENESIS ZEPEDA Primary Care [...] PART B Jun 24, 2011 PART B [id number] [id number] LEXY COBOS PATIENT MEDICARE (WNR) MEDICARE (M) PART A Jun 24, 2009 PART A [id number] LEXY COBOS PATIENT Selected Encounter This section includes the information on record at [place] for the Encounter. Date/Time Encounter Type Encounter Description Reason Pro vider Source Dec 28, 2023 11:32 AM Outpatient Encounter ADMIN PAT ACTIVTIES (MASNONCT) IHE Encounter Template Text not used by [place] Plan of Treatment: Future Appointments (+ 6 [...] 20 appointments. The data comes from all [place] treatment facilities. Appointment Date/Time Appointment Type Appointme nt Facility Name Jan 05, 2024 08:00 AM AMBULATORY - MEDICINE [facility] Jan 05, 2024 09:30 AM AMBULATORY - MEDICINE [facility] Jun 29, 2024 09:30 AM AMBULATORY - MEDICINE [facility] Social History: Smoking Status (Most current) and Tobacco Use (All prior to encounter date) This section includes the most current, and the historical, smoking and tobacco- related health factors from the [place] facility where the Encounter took place. Current Smoking Status This section includes the most current smoking, or tobacco-related health factor, from the [place] facility where the Encounter took place. Date/Time Current Smoking Status Comment Facil ity Jun 24, 2020 10:34 AM [place]-TOBACCO FORMER USER [facility] Tobacco Use History This section includes a history of the smoking, or tobacco-related health factors, that were collected on or before the date of the Encounter. The data comes from the [place] facility where the Encounter took place. Date/Time Smoking Status/Tobacco Use Comment F acility Jun 24, 2020 10:34 AM VA-TOBACCO QUIT 15 YRS OR MORE [facility] Jul 30, 2017 10:47 AM QUIT TOBACCO USE > 7 YEARS AGO [facility] Encounter Notes: All associated encounter notes This section contains the clinical notes associated to the Encounter. Date/Time Encounter Note(s) Provider Source Dec 28, 2023 11:32 AM MEDICATION MGT NOT E: LOCAL TITLE: MEDICATION RENEWAL STANDARD TITLE: MEDICATION MGT NOTE DATE OF NOTE: DEC 28, 2023@11:32 ENTRY DATE: DEC 28, 2023@11:32:45 AUTHOR: ARACELI PAREKH EXP COSIGNER: URGENCY: STATUS: COMPLETED MEDICATION RENEWAL Has ADDENDA pt req new medication order for: 1)SILDENAFIL CITRATE 100MG TAB Thank you, Araceli /marine/ ARACELI PAREKH Agriculture Specialist Signed: 12/28/2023 11:33 Receipt Acknowledged By: 12/28/2023 18:16 /es/ GENESIS ZEPEDA MD Primary Care Physician 12/28/2023 11:42 /es/ IVONE ARANGO LPN PACT 10 for UZMA WALLACE 12/28/2023 ADDENDUM STATUS: COMPLETED Medication not due to be filled till 01/16/24 /marine/ IVONE ARANGO LPN PACT 10 Signed: 12/28/2023 11:44 ARACELI PAREKH [facility]
--- OUTSIDE RECORDS SUMMARY | 2024-05-29 11:16 | XMS_ITS ---
Author Name [facility] Organization [facility] [place] Address [address] [place] [address] Care Team Providers Care Photographer Scientific Name Role Phone GENESIS ZEPEDA Primary Care [...] PART B Jun 24, 2011 PART B [id number] [id number] LEXY COBOS PATIENT MEDICARE (WNR) MEDICARE (M) PART A Jun 24, 2009 PART A [id number] LEXY COBOS PATIENT Selected Encounter This section includes the information on record at [place] for the Encounter. Date/Time Encounter Type Encounter Description Reason Pro vider Source Dec 28, 2023 11:34 AM Outpatient Encounter ADMIN PAT ACTIVTIES (MASNONCT) IHE Encounter Template Text not used by [place] Plan of Treatment: Future Appointments (+ 6 [...] 20 appointments. The data comes from all [place] treatment facilities. Appointment Date/Time Appointment Type Appointme nt Facility Name Jan 05, 2024 08:00 AM AMBULATORY - MEDICINE [facility] Jan 05, 2024 09:30 AM AMBULATORY - MEDICINE [facility] Jun 29, 2024 09:30 AM AMBULATORY MEDICINE [facility] Social History: Smoking Status (Most current) and Tobacco Use (All prior to encounter date) This section includes the most current, and the historical, smoking and tobacco- related health factors from the [place] facility where the Encounter took place. Current Smoking Status This section includes the most current smoking, or tobacco-related health factor, from the [place] facility where the Encounter took place. Date/Time Current Smoking Status Comment Facil ity Jun 24, 2020 10:34 AM [place]-TOBACCO FORMER USER [facility] Tobacco Use History This section includes a history of the smoking, or tobacco-related health factors, that were collected on or before the date of the Encounter. The data comes from the [place] facility where the Encounter took place. Date/Time Smoking Status/Tobacco Use Comment F acility Jun 24, 2020 10:34 AM [place]-TOBACCO QUIT 15 YRS OR MORE [facility] Jul 30, 2017 10:47 AM QUIT TOBACCO USE > 7 YEARS AGO [facility] Encounter Notes: All associated encounter notes This section contains the clinical notes associated to the Encounter. Date/Time Encounter Note(s) Provider Source Dec 28, 2023 11:34 AM MEDICATION MGT NOT E: LOCAL TITLE: MEDICATION RENEWAL STANDARD TITLE: MEDICATION MGT NOTE DATE OF NOTE: DEC 28, 2023@11:34 ENTRY DATE: DEC 28, 2023@11:34:59 AUTHOR: ARACELI PAREKH EXP COSIGNER: URGENCY: STATUS: COMPLETED pt req new medication order for: 1) METFORMIN HCL 1000MG TAB Thank you, Araceli /marine/ ARACELI PAREKH Communications Writer Signed: 12/28/2023 11:41 Receipt Acknowledged By: 12/28/2023 18:17 /marine/ GENESIS ZEPEDA MD Primary Care Physician 12/28/2023 11:43 /es/ IVONE ARANGO LPN PACT 10 [facility]
--- OUTSIDE RECORDS SUMMARY | 2024-05-29 11:16 | XMS_ITS | Encounter Summary ---
Author Name [facility] [place] Organization [facility] [place] Address [address] [place] [address] Care Team Providers Care Shopper Marketing Manager Name Role Phone GENESIS ZEPEDA Primary Care [...] PART B Jun 24, 2011 PART B [id number] 84A LEXY COBOS PATIENT MEDICARE (WNR) MEDICARE (M) PART A Jun 24, 2009 PART A [id number] 84A LEXY COBOS PATIENT Selected Encounter This section includes the information on record at [place] for the Encounter. Date/Time Encounter Type Encounter Description Reason Pro vider Source Jun 07, 2023 12:00 AM Outpatient Encounter EVENT (HISTORICAL) IHE Encounter Template Text not used by [place] Plan of Treatment: Future Appointments (+ 6 [...] 20 appointments. The data comes from all [place] treatment facilities. Appointment Date/Time Appointment Type Appointme nt Facility Name Jun 29, 2023 10:00 AM AMBULATORY - MEDICINE [facility] Social History: Smoking Status (Most current) and Tobacco Use (All prior to encounter date) This section includes the most current, and the historical, smoking and tobacco- related health factors from the [place] facility where the Encounter took place. Current Smoking Status This section includes the most current smoking, or tobacco-related health factor, from the [place] facility where the Encounter took place. Date/Time Current Smoking Status Comment Facil ity Jun 24, 2020 10:34 AM [place]-TOBACCO FORMER USER [facility] Tobacco Use History This section includes a history of the smoking, or tobacco-related health factors, that were collected on or before the date of the Encounter. The data comes from the [place] facility where the Encounter took place. Date/Time Smoking Status/Tobacco Use Comment F acility Jun 24, 2020 10:34 AM [place]-TOBACCO QUIT 15 YRS OR MORE [facility] Jul 30, 2017 10:47 AM QUIT TOBACCO USE > 7 YEARS AGO [facility] Encounter Notes: All associated encounter notes This section contains the clinical notes associated to the Encounter. Date/Time Encounter Note(s) Provider Source Jun 07, 2023 12:00 AM NONVA NOTE: LOCAL TITLE: NON-VA OUTPATIENT NOTES STANDARD TITLE: NONVA NOTE DATE OF NOTE: JUN 07, 2023 ENTRY DATE: JUN 30, 2023@11:51:52 AUTHOR: LIZANDRO LEVY COSIGNER: URGENCY: STATUS: COMPLETED VistA Imaging - Scanned Document SCANNED DOCUMENT SIGNATURE NOT REQUIRED Electronically Filed: 06/30/2023 by: DARREN LEVY Private Watchman DARREN LEVY [facility]
--- OUTSIDE RECORDS SUMMARY | 2024-05-29 11:16 | XMS_ITS ---
Author Name [facility] Address [address] [place] [address] Care Team Providers Care Chart Clerk Name Role Phone GENESIS ZEPEDA Primary Care [...] PART B Jun 24, 2011 PART B [id number] 84A LEXY COBOS PATIENT MEDICARE (WNR) MEDICARE (M) PART A Jun 24, 2009 PART A [id number] 84A LEXY COBOS PATIENT Selected Encounter This section includes the information on record at [place] for the Encounter. Date/Time Encounter Type Encounter Description Reason Pro vider Source Jun 20, 2023 12:28 PM Outpatient Encounter ADMIN PAT ACTIVTIES (MASNONCT) [...] 29, 2023 10:00 AM [facility] Social History: Smoking Status (Most current) [...] 24, 2020 10:34 AM [place] Tobacco Use History This section includes a history of the smoking, or tobacco-related health factors, that were collected on or before the date of the Encounter. The data comes from the [place] facility where the Encounter took place. Date/Time Smoking Status/Tobacco Use Comment F acility Jun 24, 2020 10:34 AM [place]-TOBACCO [facility] Jul 30, 2017 10:47 AM QUIT TOBACCO USE > 7 YEARS AGO [facility] Encounter Notes: All associated encounter notes This section contains the clinical notes associated to the Encounter. Date/Time Encounter Note(s) Provider Source Jun 20, 2023 12:28 PM ADMINISTRATIVE NOT E: LOCAL TITLE: CCC: SCHEDULING ADMINISTRATION STANDARD TITLE: ADMINISTRATIVE NOTE DATE OF NOTE: JUN 20, 2023@12:28 ENTRY DATE: JUN 20, 2023@12:28:46 AUTHOR: HAWA GUERRA EXP COSIGNER: URGENCY: STATUS: COMPLETED Vet called to confirm his appointment. /marine/ HAWA GUERRA Advanced Veterinarian Poultry Signed: 06/20/2023 12:28 HAWA GUERRA [facility]
--- OUTSIDE RECORDS SUMMARY | 2024-05-29 11:16 | XMS_ITS ---
Author Name [facility] [place] [facility] [place] Address [address] [place] [id number] Care Team Providers Care City Surveyor Name Role Phone GENESIS ZEPEDA Primary Care [...] PART B Jun 24, 2011 PART B [id number] 84A LEXY COBOS PATIENT MEDICARE (WNR) MEDICARE (M) PART A Jun 24, 2009 PART A [id number] 84A LEXY COBOS PATIENT Selected Encounter This section includes the information on record at [place] for the Encounter. Date/Time Encounter Type Encounter Description Reason Provider Source Jan 05, 2024 08:00 AM COMPRE OPH EXAM EST PT 1/> OPTOMETRY ICD-10-CM H40.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, low risk, bilateral CORTEZ,MARLEN J IHE Encounter Template Text not used by [place] Assessments - Encounter Diagnoses This section includes the primary and secondary diagnoses documented for the Encounter. Date/Time Primary/Secondary Diagnosis Diagnosis Name Provider Source Jan 06, 2024 03:14 PM PRIMARY Open angle with borderline findings, low risk, bilateral CORTEZ,MARLEN J [facility] Jan 06, 2024 03:14 PM SECONDARY Dry eye syndrome of bilateral lacrimal glands MARLEN CORTEZ [facility] Jan 06, 2024 03:14 PM SECONDARY Presbyopia MARLEN CORTEZ [facility] Jan 06, 2024 03:14 PM SECONDARY Presence of intraocular lens MARLEN CORTEZ [facility] Jan 06, 2024 03:14 PM SECONDARY Type 2 diabetes mellitus without complications MARLEN CORTEZ [facility] Plan of Treatment: Future Appointments (+ 6 months) and Future Tests (+/- 45 days) The Plan of Treatment section includes future care activities for the [facility] [place] [facility] This section includes future appointments and future orders which are active, pending or scheduled. Future Appointments This section includes appointments that were scheduled to occur 6 months from the date of the Encounter, up to a maximum of 20 appointments. The data comes from all [place] treatment facilities. Appointment Date/Time Appointment Type Appointme nt Facility Name Jun 29, 2024 09:30 AM AMBULATORY - MEDICINE [facility] Social History: Smoking Status (Most current) and Tobacco Use (All prior to encounter date) This section includes the most current, and the historical, smoking and tobacco- related health factors from the [place] facility where the Encounter took place. Current Smoking Status This section includes the most current smoking, or tobacco-related health factor, from the [place] facility where the Encounter took place. Date/Time Current Smoking Status Comment Preeti ity Jun 24, 2020 10:34 AM [place]-TOBACCO FORMER USER [facility] Tobacco Use History This section includes a history of the smoking, or tobacco-related health factors, that were collected on or before the date of the Encounter. The data comes from the [place] facility where the Encounter took place. Date/Time Smoking Status/Tobacco Use Comment F acility Jun 24, 2020 10:34 AM [place]-TOBACCO QUIT 15 YRS OR MORE [facility] Jul 30, 2017 10:47 AM QUIT TOBACCO USE > 7 YEARS AGO [facility] Encounter Notes: All associated encounter notes This section contains the clinical notes associated to the Encounter. Date/Time Encounter Note(s) Provider Source Jan 05, 2024 08:02 AM OPTOMETRY NOTE: LOCAL TITLE: OPTOMETRY NOTE STANDARD TITLE: OPTOMETRY NOTE DATE OF NOTE: JAN 05, 2024@08:02 ENTRY DATE: JAN 05, 2024@08:02:21 AUTHOR: DEE DEE WALKER EXP COSIGNER: MARLEN CORTEZ URGENCY: STATUS: COMPLETED OPTOMETRY NOTE Has ADDENDA Active problems - Computerized Problem List is the source for the followin. Erectile dysfunction 2. Diabetic peripheral vascular disease 3. History of left total knee replacement 4. Type 2 diabetes mellitus 5. Erectile dysfunction (SNOMED CT [id number]) 6. Hypertension 7. Exsmoker 8. Colonoscopy Screening 9. Primary Care Physician 10. Kidney Stones 11. Hypertriglyceridemia 12. Depression ([facility] [id number]) 13. Gout ([facility] [id number]) 14. Coronary artery disease 15. Sleep Apnea ([facility] [id number]) Active Outpatient Medications (including Supplies): Active Outpatient Medications Status 1) LISINOPRIL 10MG TAB TAKE ONE TABLET BY MOUTH ONCE HOLD DAILY TO CONTROL BLOOD PRESSURE Allergies: Patient has answered NKA All medications including those prescribed by outside VA's, community providers, and all OTC meds were reviewed and reconciled with patient to the best of their abilities. This 78 year old MALE is seen today for comprehensive eye exam. Chief Complaint: Patient reports he feels his reading glasses could be a bit stronger. Also would like a refill on his lubricating drops for dry eye. OHx: 1. VELIA OU 2. Pseudophakia OU 3. T2DM s retinopathy OU 4. Low risk glc susp OU (-) Pain: (-) CARRENO: (-) Diplopia: (-) Flashes: (-) Floaters: (-) Amaurosis Fugax/Tia's: (-) Eye Injury: (+) Eye Surgery: CE w/ PCIOL OU (-) TBI FOHx: (-) Glaucoma/ARMD/Blindness (-) Smoker/Length of Time/PPD: Current Rx with last BCVA: OD: -0.25 20/20+2 OS: +0.50-1.02d342 20/20 Add: +2.75 20/20 DVA ( )sc ( x )cc OD: 20/25-2 OS: 20/25-1 Pupils: PERRL (-)APD EOMs: SAFE OU, (-)Pain/Diplopia CVF (facial, peripheral): FTFC OU Subjective Refraction: OD: -0.25-0.56x142 20/20 OS: +0.50-0.64n183 20/20-1 Add: +2.75 20/20 at patient's preferred reading distance in TF All the above performed by student, reviewed by attending Anterior segment: Performed by student, repeated by attending Lids: dermatochalasis OU Conj: white and quiet OU Cornea: tr to 1+ SPK OS>OD AC: 4x4 OU Iris: flat and clear OU (-) NVI OU Lens: PCIOL OU Tonometry: GAT Performed by student, reviewed by attending OD 12 mmHg OS 11 mmHg Time: 8:15am Last IOP: 3:42pm OD: 11 OS: 11 Tmax: OD: 14 OS: 12 Previous Pachymetry: OD: 577 OS: 580 Fundus exam: Dilated: 8:17am Dilating Drops: 1GTT 1 % Tropicamide OU & 1GTT 2.5% Phenylephrine OU (Pt. ed. on side effects, dilation warning given and verbal consent obtained) Patient advised not to drive if they feel they have any symptoms which could affect their ability to drive safely. Patient advised not to engage in any activities which could put themselves or others at risk if they feel they have any symptoms which could affect their ability to perform those activities safely. Performed by student, repeated by attending Vit: syneresis OU C/D: 0.55/0.55 OD, 0.5/0.5 OS (-) NVD OU (-) drance OU Macula: ERM OU (-) fluid or elevation OU PPole: clear (-) DBH/CWS/MAYNOR/VB OU A/V: 2/3 Vessels: normal caliber OU Periph: flat and intact (-)holes, tears, detachments 360 OU (-) NVE OU Assessment/Plan: 1. 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 Patient ed on condition and findings. IOP today normotensive with above average pachymetry. OCT RNFL taken today overall stable to previous scans. No family history, pseudoexfoliation or pigment dispersion. Continue to monitor annually with repeat . 2. Type 2 diabetes without retinopathy or macular edema OU. Patient ed on condition and findings OU. Stressed importance of strict blood glucose control and yearly dilated eye exams. Monitor. 3. Pseudophakia OU. Implants appear stable and clear. Continue to monitor. 4. Dry eye syndrome OU. Patient ed on condition and findings. Patient advised to use artificial tears QID OU prn. Monitor. 5. Regular astigmatism with presbyopia OU. Ordered 1x yellow tint DVO for night driving and 1x NVO readers. Monitor. Return to Clinic 1 year or earlier PRN Patient Education: Diabetes: Patient was educated regarding diabetes and related ocular complications including retinopathy and cataract formation as well as other related systemic complications. The importance of good blood sugar control, blood sugar testing as recommended by their PCP and the importance of timely follow up were all emphasized. Glaucoma: Patient was educated regarding glaucoma/glaucoma suspect as well as the natural history of this diagnosis including prognosis. Stress importance of compliance and persistency with glaucoma medication when prescribed, timely follow up as well as the role of ancillary testing. Exclusion criteria for ancillary testing include significantly reduced acuity, mental status changes affecting the patient's ability to attend to the test or other physical limitations that would prohibit the patient's ability to participate in testing. Medication Reconciliation: Outpatient: Has the patient been taking medications as documented in the EMLR? YES: The patient has been taking medications as documented in the EMLR. Essential Medication List for Review used to complete this medication reconciliation. INCLUDED IN THIS LIST: Alphabetical list of active outpatient prescriptions dispensed from this VA (local) and dispensed from another [place] or [facility] facility (remote) as well as inpatient orders [...] whether with a VA or non-VA provider. Medication List: JLV Link Data on this list may not be complete. Please check JLV. Allergies/ADRs (Tool #5) FACILITY ALLERGY/ADR -------- No Remote Allergy/ADR Data available for this patient [facility] No Known Allergies Med. Reconciliation (Tool #1) INCLUDED IN THIS LIST: Alphabetical list of active outpatient prescriptions dispensed from this VA (local) and dispensed from another [place] or [facility] facility (remote) as well as inpatient orders (local pending and active), local clinic medications, locally documented non-VA medications, and local prescriptions that have or been discontinued in the past 90 days. Non-VA Meds Last Documented On: Jul 02, 2021 NOTE The display of VA prescriptions dispensed from another [place] or [facility] facility (remote) is limited to active outpatient prescription entries matched to National Drug File at the originating site and may not include some items such as investigational drugs, compounds, etc. NOT INCLUDED IN THIS LIST: Medications self-entered by the patient into personal health records (i.e. [employer] are NOT included in this list. Non-VA medications documented outside this [place], remote inpatient orders (regardless of status) and remote clinic medications are NOT included in this list. The patient and provider must always discuss medications the patient is taking, regardless of where the medication was dispensed or obtained. OUTPT ASPIRIN 81MG EC TAB (Status = ) TAKE ONE TABLET BY MOUTH ONCE DAILY TO PREVENT STROKE/HEART ATTACK Rx# [id number] Last Released: 12/30/22 Qty/Days Supply: Rx Expiration Date: 12/29/23 Refills Remainin Indication: FOR BLOOD CLOT PREVENTION FOLLOWING PCI OUTPT ATORVASTATIN CALCIUM 20MG TAB (Status = ) TAKE ONE-HALF TABLET BY MOUTH AT BEDTIME Rx# [id number] Last Released: 12/30/22 Qty/Days Supply: Rx Expiration Date: 12/29/23 Refills Remainin Indication: FOR HIGH CHOLESTEROL OUTPT CARBOXYMETHYLCELLULOSE NA 0.5% OPH SOLN (Status = Active) INSTILL 1 DROP INTO EACH EYE FOUR TIMES A DAY FOR DRY EYE Rx# [id number] Last Released: Qt Supply: Rx Expiration Date: 01/05/25 Refills Remainin Indication: FOR DRY EYE OUTPT LISINOPRIL 10MG TAB (Status = On Hold) TAKE ONE TABLET BY MOUTH ONCE DAILY TO CONTROL BLOOD PRESSURE Rx# [id number] Last Released: Qt Supply: Rx Expiration Date: 08/13/24 Refills Remainin Indication: FOR HIGH BLOOD PRESSURE OUTPT METFORMIN HCL 1000MG TAB (Status = ) TAKE ONE TABLET BY MOUTH TWICE DAILY FOR TYPE 2 DIABETES MELLITUS Rx# [id number] Last Released: 12/31/23 Qt Supply: Rx Expiration Date: 12/29/23 Refills Remainin Indication: FOR TYPE 2 DIABETES MELLITUS OUTPT METOPROLOL TARTRATE 100MG TAB (Status = ) TAKE ONE TABLET BY MOUTH TWICE DAILY FOR BLOOD PRESSURE/HEART Rx# [id number] Last Released: 12/30/22 Qty Supply: Rx Expiration Date: 12/29/23 Refills Remainin Indication: FOR HIGH BLOOD PRESSURE OUTPT SILDENAFIL CITRATE 100MG TAB (Status = ) TAKE ONE TABLET BY MOUTH ONCE DAILY NEEDED TAKE 1 HOUR PRIOR TO SEXUAL ACTIVITY Rx# [id number] Last Released: 12/17/23 Qty Supply: 11/20 Rx Expiration Date: 12/29/23 Refills Remainin Indication: FOR ERECTILE DYSFUNCTION SUPPLIES OUTPT LANCET,SOFTCLIX (Status = ) USE 1 LANCET DIRECTED TWICE A DAY TWO TIMES A WEEK NEEDED TO TEST BLOOD SUGAR Rx# [id number] Last Released: 12/30/22 Qt Supply: Rx Expiration Date: 12/29/23 Refills Remainin PHARMACY TERMS AND POSSIBLE PATIENT ACTIONS INPT = [place] inpatient order IV = [place] intravenous medication OUTPT = [place] outpatient prescription PHARMACY POSSIBLE PATIENT TERMS EXPLANATION ACTIONS -------- - ACTIVE A prescription that can be If you have refills, filled at the local VA pharmacy. you may request a refill of this prescription from your VA pharmacy. CLINIC A medication you received during If you have questions a visit to a VA clinic or about this medication emergency department. contact your VA healthcare team. DISCONTINUED A prescription your provider has Contact your VA stopped. It is no longer healthcare team if you available to be sent to you or need more of this picked up at the [place] pharmacy medication. window. A prescription which is too old Contact your VA to fill. This does not refer to healthcare team if you the expiration date of the need more of this medication in the container. medication. NON-VA A medication that came from If this medication someplace other than a VA information is pharmacy. This may be a incorrect or out of prescription from either the VA date, please tell your or non VA providers that was VA healthcare team. filled outside the VA. Or, it may be an oilj-yay-kvdyiwa (OTC), herbal, dietary supplements or sample medication. ON HOLD An active prescription that will Contact your VA not be filled until pharmacy pharmacy when you need resolves the issue. more of this medication. PARKED An active prescription that will Contact your VA not be filled until the patient pharmacy when you need requests it. this medication. PENDING This prescription order has been If you have been sent to the pharmacy for review instructed to start and is not ready yet. this medication now, contact your VA pharmacy. SUSPENDED An active prescription that is Contact your VA not scheduled to be filled yet. pharmacy if you need You should receive it before this medication now. you run out. ==== (x) Printed Medication Reconciliation List Offered and Declined by Gilbert () Medication Reconciliation List Printed for at Exam () Optometry HT Please Print and Mail Copy of Medication Reconciliation List () AMSA Please Print and Mail Copy of Medication Reconciliation List /marine/ DEE DEE WALKER OPTOMETRY STUDENT Signed: 01/06/2024 16:32 /marine/ MARLEN CORTEZ OD LABOR SERVICE REPRESENTATIVE Cosigned: 01/07/2024 08:17 01/07/2024 ADDENDUM STATUS: COMPLETED The optometry technical internship participated in this exam, I saw this in conjunction with the optometry student. The entrance tests and refraction were performed by the student and reviewed by me. I personally met with the patient, confirmed the hisory, complaints and the student's findings, and performed slit lamp and fundus evaluation as indicated. I reviewed and agree with the stated findings, assessment and plan. I have added/edited the documentation to reflect my exam findings and changes to the assessment and plan. Ed re today's findings. Gilbert repeated back the plan and education. All reminders completed by attending and documented in student note. /marine/ MARLEN CORTEZ OD LABOR SERVICE REPRESENTATIVE Signed: 01/07/2024 08:17 DEE DEE WALKER [place] [facility]
--- OUTSIDE RECORDS SUMMARY | 2024-05-29 11:17 | XMS_ITS ---
Author Name [facility] [place] Organization [facility] ([place]) Address [address] [place] [address] Care Team Providers Care Sandfill Operator Name Role Phone GENESIS ZEPEDA Primary Care [...] PART B Jun 24, 2011 PART B [id number] LEXY COBOS PATIENT MEDICARE (WNR) MEDICARE (M) PART A Jun 24, 2009 PART A [id number] LEXY COBOS PATIENT Selected Encounter This section includes the information on record at [place] for the Encounter. Date/Time Encounter Type Encounter Description Reason Provider Source Jan 05, 2024 09:13 AM FIT SPECTACLES MONOFOCAL OPTOMETRY ICD-10-CM Z46.0 Encounter for fit/adjst of spectacles and contact lenses MARLEN CORTEZ Rafael Encounter Template Text not used by [facility] Assessments - Encounter Diagnoses This section includes the primary and secondary diagnoses documented for the Encounter. Date/Time Primary/Secondary Diagnosis Diagnosis Name Provider Source Jan 05, 2024 09:13 AM PRIMARY Encounter for fit/adjst of spectacles and contact lenses EMILY SUTHERLAND [facility] Plan of Treatment: Future Appointments (+ 6 months) and Future Tests (+/- 45 days) The Plan of Treatment section includes future care activities for the patient [facility] [place] [facility] This section includes future appointments and future [...] 29, 2024 09:30 AM AMBULATORY - MEDICINE [facility] Social History: Smoking Status (Most current) [...] 24, 2020 10:34 AM VA-TOBACCO FORMER USER [facility] Tobacco Use History This section includes a history of the smoking, or tobacco-related health factors, that were collected on or before the date of the Encounter. The data comes from the [place] facility where the Encounter took place. Date/Time Smoking Status/Tobacco Use Comment F acility Jun 24, 2020 10:34 AM [place]-TOBACCO QUIT 15 YRS OR MORE [facility] Jul 30, 2017 10:47 AM QUIT TOBACCO USE > 7 YEARS AGO [facility] Encounter Notes: All associated encounter notes This section contains the clinical notes associated to the Encounter. Date/Time Encounter Note(s) Provider Source Jan 05, 2024 09:13 AM OPTOMETRY NOTE: LOCAL TITLE: OPTOMETRY NOTE STANDARD TITLE: OPTOMETRY NOTE DATE OF NOTE: JAN 05, 2024@09:13 ENTRY DATE: JAN 05, 2024@09:14 AUTHOR: ALLISON MARTINEZ COSIGNER: URGENCY: STATUS: COMPLETED OPTOMETRY NOTE Has ADDENDA The quote provided below is for informational purposes only. Please verify prior to the creation of a purchase order. KATELYN COBOS [id number] RX INFORMATION OD +2.50 -0.50 X110 Add:0.00 Pzm:0.00 Dir: Prz2:0.00 Dir2: OS +3.25 -0.75 X165 Add:0.00 Pzm:0.00 Dir: Prz2:0.00 Dir2: FITTING INFORMATION FPD:58 NPD:58 [place]:R: L: SEG HT:R: L: Tint:None Shade:None VA Billable Items FRAME: BIG TWIST BLACK/CRYSTAL 145 Right Lens: PLASTIC SINGLE VISION CLEAR 1.498 PLASTIC CR39 Left Lens: PLASTIC SINGLE VISION CLEAR 1.498 PLASTIC CR39 The quote provided below is for informational purposes only. Please verify prior to the creation of a purchase order. KATELYN COBOS 4784 RX INFORMATION OD -0.25 -0.50 X110 Add:0.00 Pzm:0.00 Dir: Prz2:0.00 Dir2: OS +0.50 -0.75 X165 Add:0.00 Pzm:0.00 Dir: Prz2:0.00 Dir2: FITTING INFORMATION FPD: NPD: [place]:R:32 L:31.5 SEG HT:R: L: Tint:YELLOW Shade:2 VA Billable Items FRAME: KURTIS CHINO [id number] Right Lens: PLASTIC SINGLE VISION CLEAR 1.498 PLASTIC CR39 Left Lens: PLASTIC SINGLE VISION CLEAR 1.498 PLASTIC CR39 UV400 KLEAR ANTI-REFLECTIVE COATING SOLID TINT /marine/ ALLISON MARTINEZ SUPERVISOR PAINT ROLLER COVERS Signed: 01/05/2024 09:14 Receipt Acknowledged By: 01/05/2024 09:22 /marine/ Emily Sutherland LPN Licensed Practical Nurse 01/05/2024 ADDENDUM STATUS: COMPLETED PDS functional consultant fit 2 SV eyeglasses on 01/05/2024. OPT HT entered consult(s) as requested for provider signature. /joao Sutherland LPN Licensed Practical Nurse Signed: 01/05/2024 09:26 ALLISON MARTINEZ [facility]
== END 2024-05-29 10:41 | disposition home or self-care (01) ==
PROVIDERS: PCP Internal Medicine Medical Oncology; Visit Provider Internal Medicine Pulmonary Disease
DX: J42 Unspecified chronic bronchitis (principal); R93.89 Abnormal findings on diagnostic imaging of other specified body structures; R06.09 Other forms of dyspnea
CPT/HCPCS: 99204

== ENCOUNTER → 2024-05-29 10:11 | Outpatient (BNVA) | payer MEDICARE, SELFPAY | PROVIDERS: PCP Internal Medicine Medical Oncology; Visit Provider Internal Medicine Pulmonary Disease | DX: J42 Unspecified chronic bronchitis (principal); R93.89 Abnormal findings on diagnostic imaging of other specified body structures; R06.09 Other forms of dyspnea | CPT/HCPCS: 99202 ==

== ENCOUNTER 2024-06-29 10:18 | Outpatient (REF) | payer MEDICARE, SELFPAY ==
--- OUTSIDE RECORDS SUMMARY | 2024-06-29 10:22 | XMS_ITS | Clinical Summary ---
Author Organization [facility] Address [address] [place] [address] Care Team Providers Care Plane Tableman Name Role Phone Unavailable Primary Care Provider Unavailabl e Source Comments PLEASE NOTE, if this patient is a minor, it may be UNLAWFUL to discuss sensitive information that is contained in these records (such as FAMILY PLANNING, MENTAL HEALTH or SUBSTANCE ABUSE) with the minor patient's parent or other person without the patient's specific authorization.[facility] Medications amoxicillin (AMOXIL) 500 mg capsuleIndicatio ns:Infection Take 4 caps 2 hours before any dental procedure. 4 Capsule 12/05/2021 Active Active Problems No known active problems Social History Tobacco Use Types Packs/Day Years Used Date Smoking Tobacco: Never Smokeless Tobacco: Never Tobacco Cessation:Counseling Given: Not Answered Social Connections Answer Date Recorded Connectedness 0 02/04/2024 Financial Resource Strain Answer Date R ecorded Financial Resource Strain 0 2021 Stress Answer Date Recorded Stress 0 12/05/2021 Physical Activity Answer Date Recorded Physical Activity 0 12/05/2021 Food Insecurity Answer Date Recorded Food 0 02/17/2024 Transportation Needs Answer Date Record ed Transportation 0 12/05/2021 Housing Stability Answer Date Recorded Housing 0 12/05/2021 Safety and Environment Answer Date Jair rded Safety 0 12/05/2021 Utilities Answer Date Recorded Utilities 0 12/05/2021 Employment Answer Date Recorded Stress 0 02/04/2024 Sex and Gender Information Value Date Recorded Sex Assigned at Not on file Legal Sex Male 7:20 AM PDT Gender Identity Not on file Sexual Orientation Not on file Last Filed Vital Signs Vital Sign Reading Time Taken Comments Blood Pressure 135/88 03/11/2022 9:42 AM EDT Pulse 66 03/11/2022 9:42 AM EDT Temperature - - Respiratory Rate - - Oxygen Saturation - - Inhaled Oxygen Concentration - - Weight - - Height - - Body Mass Index - - Plan of Treatment Health Maintenance Due Date Last Done Comments Dental Perio Charting 1944 Dental Prophy 1944 Hepatitis C Screening 1944 Tobacco Screening 1944 Annual Preventive Care Visit 1962 Imm-DTaP/Tdap/Td (1 - Tdap) 1963 Imm-Pneumococcal 65+ (1 of 1 - PCV) 1994 Imm-Zoster, Recombinant (1 of 2) 1994 Falls Prevention 2009 Dental BW 12/07/2022 12/05/2021 Dental Examination 12/07/2022 12/05/2021 Hypertension Screening (#1) 03/11/2023 [id number] (1 - 2023- season) 2024 Imm-Influenza (#1) 2024 Alcohol and Drug Screen 05/24/2024 Depression Annual Screen 05/24/2024 Dental FMX/Pano 02/21/2027 02/19/2022, 12/05/2021 Procedures Procedure Name Priority Date/Time Associated Diagnosis Comments PANORAMIC RADIOGRAPHIC IMAGE Routine 02/19/2022 10:00 AM EDT Chronic apical periodontitis INTRAORAL - COMP SERIES OF RADIOGRAPHIC IMAGES Routine 12/05/2021 3:00 PM EDT Encounter for dental examination COMP ORAL EVALUATION - NEW/ESTABLISHED PATIENT Routine 12/05/2021 3:00 PM EDT Encounter for dental examination from Last 3 Months or Most Recently Relevant to Health Maintenance Insurance [place] MED[place] DENTAL [facility]
--- OUTSIDE RECORDS SUMMARY | 2024-06-29 10:22 | XMS_ITS | Continuity of Care Document ---
Author Name [facility] Organization [facility] Care Team Providers Care Apprentice Architect Name Role Phone [facility] Unavailable Unavailable Problems Combined list of problems from Department of Defense and Veterans Affairs facilities. It does not include entries that were removed or entered in error. Problem Status Onset Date Problem Type Date of Resolution Comments Source Colonoscopy Screening Active Condition May 13, 2018 Entered By: GENESIS ZEPEDA Comment: 10/13/17 - diverticulosis from cecum to sigmoid, ext hemorrhoids - Dr Lopes [facility] Coronary artery disease Active Condition [facility] Depression (SCT [id number]) Active Condition [facility] Diabetic peripheral vascular disease Active Condition [facility] Erectile dysfunction Active Condition [facility] [place] Erectile dysfunction (SNOMED CT [id number]) Active Condition [facility] Exsmoker Active Condition [facility] Gout (SCT 78763630) Active Condition [facility] [...] By: GENESIS ZEPEDA Comment: Dr Miko Solis [facility]2017 Entered By: GENESIS ZEPEDA Comment: fax [phone] [facility] Sleep Apnea (SCT 78939671) Active Condition October 01, 2017 Entered By: GENESIS ZEPEDA Comment: Since he lost a significant amount of weight, he no longer has this condition [facility] Type [address] [facility] Diagnosis: ICD-10-CM H40.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, low risk, bilateral [facility] Diagnosis: ICD-10-CM Z46.0 Encounter for fit/adjst of spectacles and contact lenses [facility] Diagnosis: ICD-10-CM I10 Essential (primary) hypertension Active Diagnosis [facility] Medications Combined list of outpatient medications [...] FOR DRY EYE OPHTHA LMIC ACTIVE 01/05/2025 [id number] 4 KAMALA CORTEZ [address] [facility] LISINOPRIL 10MG TAB TAKE ONE TABLET BY MOUTH ONCE DAILY TO CONTROL BLOOD PRESSURE ORAL HOLD 08/13/2024 [id number] ALBINA ZEPEDA SA [address] [facility] LISINOPRIL 10MG TAB TAKE ONE TABLET BY MOUTH ONCE DAILY TO CONTROL BLOOD PRESSURE ORAL DISCONT INUED 12/29/2023 [id number] 4 ALBINA ZEPEDA SA 2022 30 [facility] METFORMIN HCL 1000MG TAB TAKE ONE TABLET BY MOUTH TWICE DAILY FOR TYPE 2 DIABETES MELLITUS ORAL 12/29/2023 [id number] 4 ALBINA ZEPEDA SA 2022 60 [facility] SILDENAFIL CITRATE 100MG TAB TAKE ONE TABLET BY MOUTH ONCE DAILY NEEDED TAKE 1 HOUR PRIOR TO SEXUAL ACTIVITY ORAL 12/29/2023 [id number] 4 ALBINA ZEPEDA SA 2022 6 [facility] Immunizations Combined list of available immunizations from the Department of Defense and Veterans Affairs facilities. Immunization Series Date Given Administered By Site Reaction Lot Number CVX Code Drug Timing Machine Operator Status Comments Source INFLUENZA, UNSPECIFIED FORMULATION 2019 88 complet ed [facility] ZOSTER RECOMBINANT 1 2018 187 complet ed [place] INFLUENZA, SEASONAL, INJECTABLE 2018 141 complet ed [facility] INFLUENZA, INJECTABLE, QUADRIVALENT 2017 158 complet ed Site: Left Deltoid [place] PNEUMOCOCCAL POLYSACCHARID E PPV23 2017 33 complet ed [place] TDAP 2017 115 complet ed Site: Left Deltoid [place] INFLUENZA, SEASONAL, INJECTABLE 2016 141 complet ed [facility] PNEUMOCOCCAL CONJUGATE PCV 13 2016 133 complet ed [facility] INFLUENZA, SEASONAL, INJECTABLE [address] [facility] [place] Vital Signs Combined list of inpatient and outpatient Vital Signs from Department of Defense and Veterans Affairs, ranging from 12 months to all on record, depending upon the facility. Vital Sign Value Date Comments Source SYSTOLIC BLOOD PRESSURE 124 06/29/19 24 10:05:43 [facility] DIASTOLIC BLOOD PRESSURE 75 024 10:05:43 [facility] PULSE OXIMETRY 97 06/29/2023 10:05:43 [facility] WEIGHT 180.8 06/29/2023 10:05:43 [facility] BMI 26 kg/m2 06/29/2023 10:05:43 [facility] PAIN 0 06/29/2023 10:05:43 [facility] [place] TEMPERATURE 98.2 06/29/2023 10:05:43 [facility] PULSE 84 06/29/2023 10:05:43 [facility] RESPIRATION 16 06/29/2023 10:05:43 [facility] Encounters Combined list of: 1) Encounters from Department of Veterans Affairs facilities going backup to the last 18 months, not all VA inpatient encounters are included; 2) Encounters from the Department of Defense facilities going backup to 280 months. Location Location Details Encounter Type Encounter Number Reason For Visit Attending Provider ADM Date DC Date Status Disposition Source [facility] Outpatient Encounter [id number] 12/28 [facility] Encounter [id number] 12/28 [facility] Out[facility] Encounter [id number] 03/24 [facility] Out[facility] Encounter [id number] 06/07 [facility] Encounter [id number] 06/20 [facility] Encounter [id number] 06/25 [facility] OFFICE O/P EST MOD 30 MIN [id number] Diagnos is: ICD-10- CM I10 Essenti al (primar y) hyperte HAO Rider 06/29 [place] [facility] Out[facility] Encounter [id number] 12/27 [facility] Encounter [id number] 12/27 [facility] [place] [facility] [place] [place] [id number] Diagnos is: ICD-10- CM H40.013 Open angle with borderl ine finding s, low risk, bilater al CORTEZ,LACE Y J 01/04 [facility] [place] [place] [facility] FIT SPECTACLES MONOFOCAL [id number] Diagnos is: ICD-10- CM Z46.0 Encount er for fit/adj st of spectac les and contact lenses CORTEZ,LACE Y J 01/04 [facility] [place] [facility] [facility] [place] CMPTR OPHTH IMG OPTIC NERVE [id number] Diagnos is: ICD-10- CM H40.013 Open angle with borderl ine finding s, low risk, bilater al CORTEZ,LACE Y J 01/04 [facility] [place] [facility] Outpatient Encounter [id number] 06/27 [facility] [place] [facility] Social History Combined list of available smoking, tobacco, and other social history from Department of Defense and Veterans Affairs facilities. Social History Type Response Date Comment Sourc e Tobacco smoking status [facility] VA-TOBACCO FORMER USER 06/29/2023 [facility] History of tobacco use ID-TOBACCO QUIT 15 YRS OR MORE 06/29/2023 [facility] History of tobacco use [facility] History of tobacco use ID-TOBACCO FORMER USER 07/02/2021 [facility] History of tobacco use ID-TOBACCO FORMER USER [facility]/24/2020 [facility] History of tobacco use VA-TOBACCO FORMER USER 09/12/2018 [place] History of tobacco use QUIT TOBACCO USE > 7 YEARS AGO 07/30/2017 [facility] Plan of Care List of future care activities from Department of Veterans Affairs facilities. Additional future care activities may be listed in the Assessment and Plan section. Date/Time Care Activity Care Activity Detail Facili ty 07/28/2024 AMBULATORY - MEDICINE AMBULATORY - MEDICI [facility]
--- OUTSIDE RECORDS SUMMARY | 2024-06-29 10:22 | XMS_ITS ---
Author Name [facility] Organization [facility] [place] Address [address] [place] [address] Care Team Providers Care Bleacher Sulfite Pulp Name Role Phone GENESIS ZEPEDA Primary Care [...] PART B Jun 24, 2011 PART B [id number] LEXY COBOS PATIENT MEDICARE (WNR) MEDICARE (M) PART A Jun 24, 2009 PART A [id number] LEXY COBOS PATIENT Selected Encounter This section includes the information on record at [place] for the Encounter. Date/Time Encounter Type Encounter Description Reason Pro vider Source Jun 27, 2024 11:34 AM Outpatient Encounter PRIMARY CARE/MEDICINE [facility] Encounter Template Text not used by [place] Plan of Treatment: Future Appointments (+ 6 [...] 20 appointments. The data comes from all [place] treatment facilities. Appointment Date/Time Appointment Type Appointme nt Facility Name Jul 28, 2024 10:00 AM AMBULATORY - MEDICINE [facility] Social History: Smoking Status (Most current) and Tobacco Use (All prior to encounter date) This section includes the most current, and the historical, smoking and tobacco- related health factors from the [place] facility where the Encounter took place. Current Smoking Status This section includes the most current smoking, or tobacco-related health factor, from the [place] facility where the Encounter took place. Date/Time Current Smoking Status Comment Facil ity Jun 24, 2020 10:34 AM [facility]-TOBACCO [facility] Tobacco Use History This section includes a history of the smoking, or tobacco-related health factors, that were collected on or before the date of the Encounter. The data comes from the [place] facility where the Encounter took place. Date/Time Smoking Status/Tobacco Use Comment F acility Jun 24, 2020 10:34 AM VA-TOBACCO QUIT 15 YRS OR [facility] Jul 30, 2017 10:47 AM QUIT TOBACCO USE > 7 YEARS AGO [facility] Encounter Notes: All associated encounter notes This section contains the clinical notes associated to the Encounter. Date/Time Encounter Note(s) Provider Source Jun 27, 2024 11:35 AM PRIMARY CARE TELEP [facility] ENCOUNTER NOTE: LOCAL TITLE: TELEPHONE NOTE/PRIMARY CARE STANDARD TITLE: PRIMARY CARE TELEPHONE ENCOUNTER NOTE DATE OF NOTE: JUN 27, 2024@11:35 ENTRY DATE: JUN 27, 2024@11:35:11 AUTHOR: JOSE LOEV EXP COSIGNER: URGENCY: STATUS: COMPLETED AMSA CALLED TO REMIND OF UPCOMING APPOINTMENT.LVM /marine/ JOSE LOVE ADVANCED BROADCAST METEOROLOGIST Signed: 06/27/2024 11:36 JOSE LOVE
--- OUTSIDE RECORDS SUMMARY | 2024-06-29 10:22 | XMS_ITS | Encounter Summary ---
Author Organization [facility] Address [address] [place] [address] 7 [address] [place] [address] Care Team Providers Care Corporate Travel Agent Name Role Phone Unavailable Primary Care Provider Unavailabl e Encounter Details Date Type Department Care Team (Latest Contact Info) Description 07/01/2018 Abstract [facility] CONVERSIONS Dental, Provider, DDS Social History Tobacco Use Types Packs/Day Years Used Date Smoking Tobacco: Never Assessed Sex and Gender Information Value Date Recorded Sex Assigned at Male 03/23/2022 10:34 AM EDT Legal Sex Male 10:34 AM EDT Gender Identity Not on file Sexual Orientation Not on file documented as of this encounter Plan of Treatment Not on file documented as of this encounter Visit Diagnoses Not on filedocumented in this encounter
--- OUTSIDE RECORDS SUMMARY | 2024-06-29 10:22 | XMS_ITS | Clinical Summary ---
Author Organization [employer] Address [address] [place] [address] Care Team Providers Care Supervisor Electronics Testing Name Role Phone Unavailable Primary Care Provider Unavailabl e Social History Tobacco Use Types Packs/Day Years Used Date Smoking Tobacco: Never Assessed Sex and Gender Information Value Date Recorded Sex Assigned at Male 03/23/2022 10:34 AM EDT Legal Sex Male 10:34 AM EDT Gender Identity Not on file Sexual Orientation Not on file Plan of Treatment Health Maintenance Due Date Last Done Comments Depression Screening 1944 Lipid Panel 1944 Alcohol/Substance Use Screening 1956 Tobacco Screening 1956 DTaP/Tdap/Td Vaccines (1 - Tdap) 1963 Pneumococcal Vaccine: 50+ Ye ars (1 of 1 - PCV) 1994 Zoster Vaccines (1 of 2) 1994 RSV Patients and Pa tients Aged 60 years or older (1 - 1-dose 75+ series) 2019 COVID-19 Vaccine ( - 2023-2 5 season) 2024 Influenza Vaccine (#1) 2024 HIB Vaccines Aged Out No longer eligi ble based on patient's age to complete this topic HPV Vaccines Aged Out No longer eligi ble based on patient's age to complete this topic Hepatitis A Vaccines Aged Out No long er eligible based on patient's age to complete this topic Hepatitis B Vaccines Aged Out No long er eligible based on patient's age to complete this topic IPV Vaccines Aged Out No longer eligi ble based on patient's age to complete this topic Meningococcal Vaccine Aged Out No brett marily eligible based on patient's age to complete this topic RSV under 20 months Aged Out No longe r eligible based on patient's age to complete this topic Rotavirus Vaccines Aged Out No longer eligible based on patient's age to complete this topic
--- OUTSIDE RECORDS SUMMARY | 2024-06-29 10:23 | XMS_ITS | Encounter Summary ---
Author Name [facility] [place] Organization [facility] ([place]) Address [address] [place] [address] Care Team Providers Care Lens Dotter Name Role Phone GENESIS ZEPEDA Primary Care [...] PART B Jun 24, 2011 PART B [id number] [phone] LEXY COBOS PATIENT MEDICARE (WNR) MEDICARE (M) PART A Jun 24, 2009 PART A [id number] [phone] LEXY COBOS PATIENT Selected Encounter This section includes the information on record at [place] for the Encounter. Date/Time Encounter Type Encounter Description Reason Pro vider Source IHE Encounter Template Text not used by [place]
--- NOTE | 2024-06-29 10:40 | PFT_ITS ---
Flows: FEV1: 84 % of predicted at 2.41 L FVC: 117 % of predicted at 4.55 L FEV1/FVC: 53 % Bronchodilator response: Present in small to medium airways only Volumes: Total lung capacity: 98 % of predicted at 6.95 L Residual volume: 90 % of predicted at 2.50 L Slow vital capacity: 111 % of predicted at 4.44 L Expiratory reserve volume: 88 % of predicted at 1.08 L Diffusion capacity: Mildly decreased Impression: Mild obstructive ventilatory defect with bronchodilator response present in small to medium airways only. Decreased diffusion capacity suggests emphysema. MTDD
== END 2024-06-29 10:19 | disposition home or self-care (01) ==
LOC: HO.RESP 10:18
PROVIDERS: PCP Internal Medicine Medical Oncology; Visit Provider Internal Medicine Pulmonary Disease
DX: R06.09 Other forms of dyspnea (principal)
CPT/HCPCS: 94010; 94640; 94727; 94729

== ENCOUNTER → 2024-06-29 10:40 | Outpatient (BNV) | payer MEDICARE, SELFPAY | PROVIDERS: PCP Internal Medicine Medical Oncology; Visit Provider Internal Medicine Pulmonary Disease | DX: R06.09 Other forms of dyspnea (principal) | CPT/HCPCS: 94060; 94727; 94729 ==

== ENCOUNTER 2024-06-30 14:27 | Outpatient (REF) | payer MEDICARE, SELFPAY | END 2024-06-30 14:28 | disposition home or self-care (01) | LOC: HO.CT 14:27 | PROVIDERS: PCP Internal Medicine Medical Oncology; Visit Provider Internal Medicine Pulmonary Disease | DX: R93.89 Abnormal findings on diagnostic imaging of other specified body structures (principal) | CPT/HCPCS: 71250 ==

== ENCOUNTER → 2024-06-30 14:29 | Outpatient (BNV) | payer MEDICARE, SELFPAY | PROVIDERS: PCP Internal Medicine Medical Oncology; Visit Provider Specialist | DX: R05.3 Chronic cough (principal) | CPT/HCPCS: 71250 ==

== ENCOUNTER 2024-07-05 11:12 | Outpatient (AMB) | payer MEDICARE, SELFPAY ==
[2024-07-05 11:15] VITALS: BP 108/64; PULSE 71; O2SAT 97; BMI 27.6
--- NOTE | 2024-07-05 11:15 | A.OFFVIS_ITS ---
Vital Signs 07/05/24 11:15 Height 5 ft 9 in Weight 187 lb BMI 27.6 BP 108/64 Blood Pressure Location Rt brachial Position Sitting Pulse 71 Pulse Source Doppler Pulse Oximetry (%) 97 Oxygen Delivery Method Room Air Intake Visit Reasons: LLL opacities Allergies No Known Allergies Allergy (Verified 07/05/24 11:19) HPI HPI LLL opacities: Details: 78-year-old gentleman, former greater than 40 pack-year smoker, quit over 20 years prior, now followed for moderate COPD. After the last office visit patient had his function testing he was started on Anoro with significant improvement his symptoms. He did complete his CT chest. He denies recent acute exacerbations. [facility]LY [facility] Social History (Updated 05/29/24 @ 10:20 by Yaz Knight LPN) Patient Tobacco Use Status: Former Tobacco user Tobacco use type: Cigarette Years Smoked: 40 Review of Systems Const Denies daytime sleepiness, Denies excessive sweating, Denies fatigue, Denies fever(s), Denies lethargy, Denies malaise, Denies night sweats, Denies snoring and Denies weight loss Eyes Denies blurry vision and Denies itchy eyes ENT Denies nasal congestion, Denies post nasal drip, Denies sinus pain, Denies sinus pressure and Denies other ( Thrush) Card Denies chest pain, Denies pedal edema, Denies dyspnea, Denies orthopnea and Denies paroxysmal nocturnal dyspnea Resp Denies cough, Denies hemoptysis, Denies excessive phlegm production, Denies dyspnea, Denies snoring and Denies wheezing GI Denies abdominal pain and Denies heartburn Musc Denies myalgias, Denies arthralgias and Denies joint swelling Skin/Breast Denies rash Neuro Denies memory loss and Denies seizure-like activity Psych Denies abnormal sleep pattern, Denies anxiety and Denies memory loss Endo Denies excessive sweating, Denies fatigue and Denies heat intolerance Vern/Lymph Denies easy bruising Aller/Immun Denies itchy eyes, Denies seasonal rhinorrhea and Denies wheezing Physical Exam Vital Signs: Last Vital Signs Pulse 71 07/05/24 11:15 BP 108/64 07/05/24 11:15 Pulse Ox 97 07/05/24 11:15 Oxygen Delivery Method Room Air 07/05/24 11:15 BMI result Body Mass Index 27.6 Const General: no acute distress and alert Nutritional Appearance: not obese Orientation/consciousness: Other orientation findings ( oriented) HEENT Head: Yes atraumatic Eyes General: appearance normal, both eyes and all related structures Sclerae: sclerae normal EOM: EOMs intact bilaterally Neck Neck: Yes supple Lymphatic: no lymphadenopathy noted Resp Effort & Inspection: normal respiratory effort and no use of accessory muscles Auscultation: clear to auscultation bilaterally Cardio Rate: regular rate Rhythm: regular rhythm Heart sounds: no gallops, no murmurs and no rubs Skin General skin exam: other ( warm) Extrem General: No clubbing, No cyanosis and No edema Assessment & Plan Assessment & Plan (1) COPD (chronic obstructive pulmonary disease): Code(s): J44.9 - Chronic obstructive pulmonary disease, unspecified Category: Medical Plan: Results of pulmonary function test reviewed [id number] COPD, now well controlled on Anoro and albuterol MDI. Continue current regimen. (2) Abnormal CT scan, chest: Code(s): R93.89 - Abnormal findings on diagnostic imaging of other specified body structures Category: Medical Plan: Results of CT chest reviewed, left upper lobe ground-glass density will repeat chest in 6 months. Orders: Orders Pulmonary Rehab Today J44.9 - Chronic obstructive pulmonary disease, unspecified Coding Level of Care Code Est Pt Level 4 (10682) Diagnoses COPD (chronic obstructive pulmonary disease) J44.[address] scan, chest R93.89
--- OUTSIDE RECORDS SUMMARY | 2024-07-05 13:09 | XMS_ITS ---
Author Organization Miko Elias III, MD Address [address] [place] [address] [address] [place] [phone] Care Team Providers Care Frame Wirer Name Role Phone Miko Elias Primary Care [...] Date Provider Diagnosis Miko Elias III, MD [address] [place] [address] [address] [place] [phone] 05/09/2024 Miko Elias Plan Of Treatment Medication [...] Details Provider Name:Miko Elias, 10/17/2024 10:00:00 AM, [address] [place] [address] [address], [place], [address], Progress Notes * Sylvester ROCK EDOB:[birth year] (78 yo M)Acc No.[id number]:05/09/2024 Progress Notes Patient:?Sylvester ROCK Provider:?Miko Elias MD :1945???Age:78 Y???Sex:Male Edison e:05/09/2024 Address:[address], [place], [phone] Subjective: * Chief Complaints: * ???1. Follow [...] Tobacco Non-User?Ex-cigarette smoker ???He was born in [place] and has been to [place] for [place] years. He has 1 stepson. 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 * Medications:?Taking [...] Elias MD Date:?04/23 Generated for Lindsay jack/Stella/eTransmitting on:?07/05/2024 01:08 PM EST History and Physical Notes * HPI [...] edema LYMPH NODES: no enlarged lymph no jeol,spleen normal RECTAL EXAM: not examined PSYCH: alert, oriented ORAL CAVITY: normal, unremarkable
--- OUTSIDE RECORDS SUMMARY | 2024-07-05 13:09 | XMS_ITS | Continuity of Care Document ---
Author Name [facility] Organization [facility] Care Team Providers Care Sewing Machine Repairer Helper Name Role Phone [facility] Unavailable Unavailable Problems Combined list of problems from Department of Defense and Veterans Affairs facilities. It does not include entries that were removed or entered in error. Problem Status Onset Date Problem Type Date of Resolution Comments Source Colonoscopy Screening Active Condition May 13, 2018 Entered By: GENESIS ZEPEDA Comment: 10/13/17 - diverticulosis from cecum to sigmoid, ext hemorrhoids - Dr Lopes [facility] Coronary artery disease Active Condition [facility] Depression (SCT 77849721) Active Condition [facility] Diabetic peripheral vascular disease Active Condition [facility] Erectile dysfunction Active Condition [facility] [place] Erectile dysfunction (SNOMED CT 948394378) Active Condition [facility] Exsmoker Active Condition [facility] Gout (SCT 43521877) Active Condition [facility] [...] By: GENESIS ZEPEDA Comment: Dr Miko Solis [facility]2017 Entered By: GENESIS ZEPEDA Comment: fax [phone] [facility] Sleep Apnea (SCT 94182726) Active Condition October 01, 2017 Entered By: GENESIS ZEPEDA Comment: Since he lost a significant amount of weight, he no longer has this condition [facility] Type 2 diabetes mellitus Active [facility] Diagnosis: ICD-10-CM H40.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, low risk, bilateral [facility] Diagnosis: ICD-10-CM Z46.0 Encounter for fit/adjst of spectacles and contact lenses Active [facility] Diagnosis: ICD-10-CM I10 Essential (primary) hypertension Active Diagnosis [facility] Medications Combined list of outpatient [...] FOR DRY EYE OPHTHA LMIC ACTIVE 01/05/2025 [id number] 4 KAMALA CORTEZ 2023 45 [facility] LISINOPRIL 10MG TAB TAKE ONE TABLET BY MOUTH ONCE DAILY TO CONTROL BLOOD PRESSURE ORAL HOLD 08/13/2024 0379540 ALBINA ZEPEDA SA 2023 90 [facility] LISINOPRIL 10MG TAB TAKE ONE TABLET BY MOUTH ONCE DAILY TO CONTROL BLOOD PRESSURE ORAL DISCONT INUED 12/29/2023 8305054 4 ALBINA ZEPEDA SA 2022 30 [facility] METFORMIN HCL 1000MG TAB TAKE ONE TABLET BY MOUTH TWICE DAILY FOR TYPE 2 DIABETES MELLITUS ORAL 12/29/2023 9644928 4 ALBINA ZEPEDA SA 2022 60 [facility] SILDENAFIL CITRATE 100MG TAB TAKE ONE TABLET BY MOUTH ONCE DAILY NEEDED TAKE 1 HOUR PRIOR TO SEXUAL ACTIVITY ORAL 12/29/2023 2380774 4 ALBINA ZEPEDA SA 2022 6 [facility] Immunizations Combined list of available immunizations from the Department of Defense and Veterans Affairs facilities. 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 Vital Sign Value Date Comments Source SYSTOLIC BLOOD PRESSURE 124 06/29/19 24 10:05:43 [facility] DIASTOLIC BLOOD PRESSURE 75 024 10:05:43 [facility] PULSE OXIMETRY 97 06/29/2023 10:05:43 [facility] WEIGHT 180.8 06/29/2023 10:05:43 [facility] BMI 26 kg/m2 06/29/2023 10:05:43 [facility] PAIN 0 06/29/2023 10:05:43 [facility] [place] TEMPERATURE 98.2 06/29/2023 10:05:43 [facility] [place] PULSE 84 06/29/2023 10:05:43 [facility] Out[facility] Encounter [id number] 12/28 [facility] En[facility] [id number] 12/28 [facility] En[facility] [id number] 03/24 [facility] En[facility] [id number] 06/07 [facility] En[facility] [id number] 06/20 [facility] En[facility] [id number] 06/25 [facility] OFFICE O/P EST MOD 30 MIN [id number] Diagnos is: ICD-10- CM I10 Essenti al (primar y) hyperte HAO Rider 06/29 [place] [facility] Encounter [id number] 12/27 [facility] En[facility] [id number] 12/27 [place] [facility] [place] [place] [id number] Diagnos is: ICD-10- CM H40.013 Open angle with borderl ine finding s, low risk, bilater al CORTEZ,LACE Y J 01/04 [facility] [place] [facility] FIT SPECTACLES MONOFOCAL [id number] Diagnos is: ICD-10- CM Z46.0 Encount er for fit/adj st of spectac les and contact lenses CORTEZ,LACE Y J 01/04 [place] [facility] [place] [facility] [place] [facility] CMPTR OPHTH IMG OPTIC NERVE [id number] Diagnos is: ICD-10- CM H40.013 Open angle with borderl ine finding s, low risk, bilater al CORTEZ,LACE Y J 01/04 [place] [facility] [place] [facility] [place] [facility] Outpatient Encounter [id number] 06/27 [facility] [place] [facility] Social History Combined list of available smoking, tobacco, and other social history from Department of Defense and Veterans Affairs facilities. Social History Type Response Date Comment Sourc e Tobacco smoking status [facility] VA-TOBACCO FORMER USER 06/29/2023 AB[facility] History of tobacco use [place]-TOBACCO QUIT 15 YRS OR MORE 06/29/2023 [place] History of tobacco use [facility] NEVER [facility] History of tobacco use [place]-TOBACCO FORMER USER 07/02/2021 [place] History of tobacco use [place]-TO[place]ACCO FORMER USER 06/24/2020 [facility] History of tobacco use [facility]-TOBACCO FORMER USER 09/12/2018 AB[facility] History of tobacco use QUIT TOBACCO USE > 7 YEARS AGO 07/30/2017 [facility] Plan of Care List of future care activities from Department of Veterans Affairs facilities. Additional future care activities may be listed in the Assessment and Plan section. Date/Time Care Activity Care Activity Detail Facili ty 07/28/2024 AMBULATORY - MEDICINE AMBULATORY - MEDICI [facility]
--- OUTSIDE RECORDS SUMMARY | 2024-07-05 13:09 | XMS_ITS | Clinical Summary ---
Author Organization [facility] Address [address] [place] [address] Care Team Providers Care Physical Therapy Nurse Name Role Phone Unavailable Primary Care Provider [...] Examination 12/07/2022 12/05/2021 Hypertension Screening (#1) 03/11/2023 [id number] (1 - 2023- season) 2024 Imm-Influenza (#1) [...] Most Recently Relevant to Health Maintenance Insurance [place] [facility]
--- OUTSIDE RECORDS SUMMARY | 2024-07-05 13:09 | XMS_ITS | Encounter Summary ---
Author Organization [facility] Address [address] [place] [address] 7 [place] [address] Care Team Providers Care Terra Cotta Mason Name Role Phone Unavailable Primary Care Provider Unavailabl e Encounter Details Date Type Department Care Team (Latest Contact Info) Description 07/01/2018 Abstract [facility] CONVERSIONS Dental, Provider, DDS Social History [...]
--- OUTSIDE RECORDS SUMMARY | 2024-07-05 13:09 | XMS_ITS | Clinical Summary ---
Author Organization [email or web address] Address [address]t [place] [address] Care Team Providers Care Director Of Supply Chain Name Role Phone Unavailable Primary Care Provider [...]
--- OUTSIDE RECORDS SUMMARY | 2024-07-05 13:09 | XMS_ITS ---
Author Organization Miko Elias III, MD Address [address] [place] [address] [place] [address] Care Team Providers Care Garnett Room Worker Name Role Phone Miko Elias Primary Care Provider Reason For Referral Reason LLL opacities eval uate and treat Diagnosis 1 Former smoker (Z87.8 91) Diagnosis 2 Chronic cough (R05.3 ) Referral Organization Miko Elias III, MD Referring Provider First Name Miko Referring Provider Last Name Jada Referring Provider Speciality Internal M edicine Referred Provider [facility] er, Pulmonology Referred Provider Specialty Pulmonary [facility] General Notes Tonia Singletary CMA 04/26 11:10:04 AM >ref/demo/progress note/labs/cxr faxed to [facility] de[facility] . called made patient appt [...] Date Provider Diagnosis Miko Elias III, MD [address] [place] [address] [place] [address] 04/26/2024 Miko Elias Former smoker Z87.891 and [...] 04/26/2024, LLL opac ities evaluate and [facility] Details Provider Name:Miko Elias, 10/17/2024 10:00:00 AM, [address] [place] [address] [address], [place], [address], Progress Notes * Sylvester ROCK EDOB:[birth year] (78 yo M)Acc No.[id number]:04/26/2024 Patient:?Sylvester ROCK E :1945???Age:78 Y???Sex:Male Address:[address] [place] [address] , [place] [address] * Refills? Start Ciprofloxacin HCl Tablet, 250 MG, Orally, 14 Tablet, 1 tablet, every 12 hrs, 7 days, Refills=0 Subjective: * Chief Complaints: * ??? * Medical History:? * Surgical History:? * Hospitalization/Major Diagno stic Procedure:? * Medications:? Objective: * Vitals:? * Physical Examination:? Assessment: * Assessment: 1.?Former smoker - Z87.891?? ?2.?Chronic cough - R05.3??? Plan: * Treatment: 2.?Chronic cough? [facility] ?Reason:LLL opacities evaluate and treat 3.?Others? Start Ciprofloxacin HCl Tablet, 250 MG, 1 tablet, Orally, every 12 hrs, 7 days, 14 Tablet, Refills 0.?? * Procedure Codes:? * true * Date:? Generated for Lindsay jack/Stella/Jeniffersmitting on:?07/05/2024 01:09 PM EST Consultation Request Notes Referral Date Referring Provider Referred Provider Not marine 04/26/2024 Jada [facility], Pulmonology LLL opacities evaluate and treat
--- OUTSIDE RECORDS SUMMARY | 2024-07-05 13:10 | XMS_ITS ---
Author Organization Miko Elias III, MD Address [address] [place] [address] [address] [place] [phone] Care Team Providers Care Project Manager Name Role Phone Miko Elias Primary Care [...] Problem Status W/U Status Risk Notes Problem [id number] Simple chronic bronchitis (J41.0) Active confirmed His [...] Date Provider Diagnosis Miko Elias III, MD [address] [place] [address] [address], [place] [address] 05/02/2024 Miko Elias Simple chronic bronchitis J41.0 [...] V Provider Name:Miko Elias, 10/17/2024 10:00:00 AM, [address] [place] [address] , [place] [address], [place], [phone], Progress Notes * Sylvester ROCK EDOB:[birth year] (78 yo M)Acc No.[id number]:05/02/2024 Progress Notes Patient:?Sylvester ROCK Provider:?Miko Elias MD :1945???Age:78 Y???Sex:Male Edison e:05/02/2024 Address:[address] [place] [address] , [place] [phone] Subjective: * Chief Complaints: * ???Benign prosthetic [...] point) ?Points?1 ?Interpretation?Negative ???He was born in [place] and has been to [place] for [place] years. He has 1 stepson. 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 * Medications:?TakingFLUoxetin [...] your next appointment,PLEASE FAX COMPLETED RESULTS TO [phone] ???Lab:Comprehensive [facility]. P jay jay Fast (Order Date - [...] your next appointment,PLEASE FAX COMPLETED RESULTS TO [phone] ???Lab:Hemoglobin A1c (Order Date - 04/25/2024) (Collection [...] your next appointment,PLEASE FAX COMPLETED RESULTS TO [phone] * Examination: ???General Examination: ?GENERAL APPEARANCE:?pleasant, well [...] Provider:?Miko Elias MD Date:?04/23 Generated for Printi ng/Indiag/eTransmitting on:?07/05/2024 01:10 PM EST History and Physical Notes * HPI (History of Present Illness) Category Sub-Category Detail Notes COVID-19 Screening Questions Have you had any new onset fever, chills, cough, congestion, sore throat, shortness of breath, muscle aches?: No Have you been exposed to the virus withi n the last 10 days?: No Have you travelled internationally in [facility] last [facility] days?: No Have you been [...]
== END 2024-07-05 11:37 | disposition home or self-care (01) ==
PROVIDERS: PCP Internal Medicine Medical Oncology; Visit Provider Internal Medicine Pulmonary Disease
DX: J44.9 Chronic obstructive pulmonary disease, unspecified (principal); R93.89 Abnormal findings on diagnostic imaging of other specified body structures
CPT/HCPCS: 99214

== ENCOUNTER → 2024-07-05 11:12 | Outpatient (BNVA) | payer MEDICARE, SELFPAY | PROVIDERS: PCP Internal Medicine Medical Oncology; Visit Provider Internal Medicine Pulmonary Disease | DX: J44.9 Chronic obstructive pulmonary disease, unspecified (principal); R93.89 Abnormal findings on diagnostic imaging of other specified body structures | CPT/HCPCS: 99212 ==

== ENCOUNTER 2024-10-13 10:12 | Outpatient (REF) | payer MEDICARE, SELFPAY ==
--- OUTSIDE RECORDS SUMMARY | 2024-10-13 10:27 | XMS_ITS ---
Author Name [facility] [place] [facility] Address [address] [place] [address] Care Team Providers Care Tax Manager Public Name Role Phone GENESIS ZEPEDA Primary Care [...] PART B Jun 24, 2011 PART B [id number] [place] PATIENT MEDICARE (WNR) MEDICARE (M) PART B Jun 24, 2011 PART B [id number] [place] PATIENT MEDICARE (WNR) MEDICARE (M) PART A Jun 24, 2009 PART A [id number] [place] PATIENT MEDICARE (WNR) MEDICARE (M) PART A Jun 24, 2009 PART A [id number] [place] PATIENT Selected Encounter This section includes the information on record at [place] for the Encounter. Date/Time Encounter Type Encounter Description Reason Pro vider Source Dec 28, 2023 11:32 AM Outpatient Encounter ADMIN PAT ACTIVTIES (MASNONCT) [facility] Encounter Template Text not used by [place] Plan of Treatment: Future Appointments (+ 6 months) and Future Tests (+/- 45 days) The Plan of Treatment section includes future care activities for the patient [facility] [place] [facility] This section includes future appointments and future orders which are active, pending or scheduled. Future Appointments This section includes appointments that were scheduled to occur 6 months from the date of the Encounter, up to a maximum of 20 appointments. The data comes from all [place] treatment facilities. Appointment Date/Time Appointment Type Appointme nt Facility Name Jan 05, 2024 08:00 AM AMBULATORY - MEDICINE [facility] Jan 05, 2024 09:30 AM AMBULATORY MEDICINE [facility] Social History: Smoking Status (Most current) and Tobacco Use (All prior to encounter date) This section includes the most current, and the historical, smoking and tobacco- related health factors from the [place] facility where the Encounter took place. Current Smoking Status This section includes the most current smoking, or tobacco-related health factor, from the [place] facility where the Encounter took place. Date/Time Current Smoking Status Comment Facil ity Jun 24, 2020 10:34 AM [place]-TOBACCO QUIT 15 YRS OR MORE [facility] Tobacco Use History This section includes a history of the smoking, or tobacco-related health factors, that were collected on or before the date of the Encounter. The data comes from the [place] facility where the Encounter took place. Date/Time Smoking Status/Tobacco Use Comment F acility Jun 24, 2020 10:34 AM [place]-TOBACCO QUIT 15 YRS OR MORE [facility] Jul 30, 2017 10:47 AM QUIT TOBACCO USE > 7 YEARS AGO [facility] Encounter Notes: All associated encounter notes This section contains the clinical notes associated to the Encounter. Date/Time Encounter Note(s) Provider Source Dec 28, 2023 11:32 AM MEDICATION MGT NOT E: LOCAL TITLE: MEDICATION RENEWAL STANDARD TITLE: MEDICATION MGT NOTE DATE OF NOTE: DEC 28, 2023@11:32 ENTRY DATE: DEC 28, 2023@11:32:45 AUTHOR: ARACELI PAREKH COSIGNER: URGENCY: STATUS: COMPLETED MEDICATION RENEWAL Has ADDENDA pt req new medication order for: 1)SILDENAFIL CITRATE 100MG TAB Thank you, Araceli /marine/ ARACELI PAREKH Photoresist Printer Signed: 12/28/2023 11:33 Receipt Acknowledged By: 12/28/2023 18:16 /marine/ GENESIS ZEPEDA MD Primary Care Physician 12/28/2023 11:42 /marine/ IVONE ARANGO LPN PACT 10 for UZMA WALLACE 12/28/2023 ADDENDUM STATUS: COMPLETED Medication not due to be filled till 01/16/24 /marine/ IVONE ARANGO LPN PACT 10 Signed: 12/28/2023 11:44 ARACELI PAREKH [facility]
[2024-10-13 10:28] LABS: MANUAL DIFF FLAG NO
[2024-10-13 11:49] LABS: Basophils Absolute Auto 0.1 X10*3/uL (0.0-0.2); Basophils Percent Auto 1.1 % (0-2); Eosinophils Absolute Auto 0.2 X10*3/uL (0.0-0.4); Eosinophils Percent Auto 2.1 % (0-4); Hematocrit 37.6 % (42.0-52.0); Hemoglobin 12.6 g/dl (14.0-18.0); Imm Gran Abs Auto 0.04 X10*3/uL (0.00-0.03); Imm Gran Pct Auto 0.5 % (0.0-0.4); Lymphocytes Absolute Auto 2.6 X10*3/uL (1.2-4.9); Lymphocytes Percent Auto 32.3 % (20-40); Mean Corpuscular HGB Conc 33.5 g/dl (31.0-36.0); Mean Corpuscular Hemoglobin 31.9 pg (27.0-33.0); Mean Corpuscular Volume 95.2 fL (80.0-98.0); Mean Platelet Volume 11.6 fL (9.4-12.4); Monocytes Absolute Auto 0.7 X10*3/uL (0.1-1.2); Monocytes Percent Auto 8.3 % (2-11); Neutrophils Absolute Auto 4.4 x10*3/uL (2.0-8.3); Neutrophils Percent Auto 55.7 % (45-73); Platelet Count 218 X10*3/uL (160-400); Red Blood Count 3.95 X10*6/uL (4.60-5.80); Red Cell Distribution Width 14.6 % (11.0-16.0); White Blood Count 7.9 X10*3/uL (4.8-10.8)
[2024-10-13 11:54] LABS: Estimated Average Glucose 146 mg/dL; Hemoglobin A1c % 6.7 % (<6.0)
[2024-10-13 12:12] LABS: B Type Natriuretic Peptide 25 pg/mL (<100)
[2024-10-13 12:31] LABS: Creatinine Urine 82.66 mg/dL; Microalbum/Creatinine Ratio Ur 9.6 ug/mg cr (<30)
[2024-10-13 12:34] LABS: Alanine Aminotransferase 20 U/L (0-40); Albumin Level 4.6 g/dL (3.5-5.0); Alkaline Phosphatase 65 U/L (39-117); Anion Gap 12 (12-20); Aspartate Amino Transferase 25 U/L (5-37); Bilirubin Total 1.2 mg/dL (0.0-1.0); Blood Urea Nitrogen 23 mg/dL (9-16); Calcium 9.7 mg/dL (8.4-10.2); Carbon Dioxide 24 mmol/L (22-29); Chloride 104 mmol/L (96-108); Cholesterol 92 mg/dL (<200); Estimated Glomerular Filt Rate 53; Glucose Fasting 136 mg/dL (60-99); HDL Cholesterol 33 mg/dL (>40); LDL Cholesterol Calculated 35 mg/dL (<100); Sodium 135 mmol/L (135-145); Total Protein 7.4 g/dL (6.5-8.0); Triglycerides 122 mg/dL (<150)
[2024-10-13 12:41] LABS: Prostate Specific Antigen 3.53 ng/mL (<0.05-4.0)
== END 2024-10-13 10:13 | disposition home or self-care (01) ==
LOC: HO.LAB 10:12
PROVIDERS: PCP Internal Medicine Medical Oncology; Visit Provider Internal Medicine Medical Oncology
DX: E78.1 Pure hyperglyceridemia (principal); E11.9 Type 2 diabetes mellitus without complications; I42.9 Cardiomyopathy, unspecified; N40.0 Benign prostatic hyperplasia without lower urinary tract symptoms; I10 Essential (primary) hypertension; Z12.5 Encounter for screening for malignant neoplasm of prostate
CPT/HCPCS: 36415; 80053; 80061; 82043; 82570; 83036; 83880; 84153; 85025

== ENCOUNTER 2024-11-17 07:51 | Outpatient (REF) | payer MEDICARE, SELFPAY ==
--- NOTE | ~2024-11-17 | CT_ITS ---
EXAMINATION: CT CHEST WITHOUT IV CONTRAST INDICATION: R93.89 - Abnormal findings on diagnostic imaging of other specified body... COMPARISON: There are no prior studies available for comparison. TECHNIQUE: Helical CT scan of the chest was performed without intravenous contrast. Coronal and sagittal reformatted images were generated and reviewed. This CT exam was performed with one or more of the following dose reduction techniques: automated exposure control, adjustment of the mA and/or kV according to patient size, use of iterative reconstruction technique. DLP: 189 mGy-cm CHEST: THYROID: The thyroid is unremarkable. LUNGS: Again seen is an irregularly shaped groundglass nodule in the left upper lobe (series 4, images 65-69) which measures 2.4 x 1.6 x 1.0 cm on the current study (previously 2.6 x 1.6 x 1.2 cm). The remainder of the lungs are clear. MEDIASTINUM: Again seen is a 13 x 7 mm AP window lymph node. LIN: Evaluation of the hilar regions is limited by lack of intravenous contrast material. CARDIOVASCULATURE: The heart is normal in size. There is no pericardial effusion. The thoracic aorta is normal in caliber. DEGREE OF CORONARY CALCIFICATION: mild PLEURA: There is no pleural effusion. No pneumothorax. MAIN AIRWAYS: The mainstem bronchi and proximal branches are patent. AXILLA: There is no axillary lymphadenopathy. BONES AND SOFT TISSUES: There is degenerative disc disease of the spine. UPPER ABDOMEN: The visualized portions of the liver, spleen, and adrenals have an unremarkable unenhanced appearance. CT/CT chest wo IV con IMPRESSION: Persistent groundglass nodule in the left upper lobe, similar in size to the prior study. Continued follow-up is recommended with chest CT in 6 months. Electronically signed by: Miko Pulido MD 11/17/2024 08:28 AM EDT
== END 2024-11-17 07:52 | disposition home or self-care (01) ==
LOC: HO.CT 07:51
PROVIDERS: PCP Internal Medicine Medical Oncology; Visit Provider Internal Medicine Pulmonary Disease
DX: R93.89 Abnormal findings on diagnostic imaging of other specified body structures (principal)
CPT/HCPCS: 71250

== ENCOUNTER → 2024-11-17 07:54 | Outpatient (BNV) | payer MEDICARE, SELFPAY | PROVIDERS: PCP Internal Medicine Medical Oncology; Visit Provider Radiology Diagnostic Radiology | DX: R91.1 Solitary pulmonary nodule (principal) | CPT/HCPCS: 71250 ==

== ENCOUNTER 2024-12-26 12:38 | Outpatient (AMB) | payer MEDICARE, SELFPAY ==
--- OUTSIDE RECORDS SUMMARY | 2024-10-17 06:00 | XMS_ITS ---
Author Organization Miko Elias III, MD Address [address] [place] [address] DR [address]ESA [place]aine [place] [address] Care Team Providers Care Field Interviewer Name Role Phone Miko Elias Primary Care [...] - 1.025 pH 5.0 5.0 - 9.0 AYNANA Negative Negative - NIT Negative Negative - [...] Speciality Internal M edicine Referred Provider [facility] er, Orthopedic Surgeons Referred Provider Specialty [...] Date Provider Diagnosis Miko Elias III, MD [address] [place] [address] [address]VER, [place] [phone] 10/17/2024 Miko Elias Diabetes mellitus E1 1.9 [...] Treat Shoulder Pain Questioning Injections, Orthopedic Surgeons [facility] Next Appt Details Follow Up: 4 Months, Reason: OV Provider Name:Miko Elias, 02/16/2025 09:00:00 AM, [address] [place] [address] [address], [place], [phone], Provider Name:Miko Elias, 10/18/2025 10:00:00 AM, [address] [place] [address] [address], [place], [phone], Progress Notes * Sylvester ROCK EDOB:[birth year] (79 yo M)Acc No.[id number]:10/17/2024 Progress Notes Patient: Sylvester PHOENIX Provider: Fabian Elias MD :1945 A ge:79 Y S ex:Male Date:10/17/2024 Address:[address] [place] [address] , [place], [id number] Subjective: * Chief Complaints: * A nnual [...] P oints 1 I nterpretation N egative H jieson was born in [place] and has been to [place] for 15 years. He has 1 stepson. 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 * Medications: [...] your next appointment,PLEASE FAX COMPLETED RESULTS TO [phone] * Lab:Lipid Panel * Collection Date 10/13/2024 [...] your next appointment,PLEASE FAX COMPLETED RESULTS TO [phone] * Lab:Complete Blood Count Aut o Diff [...] your next appointment,PLEASE FAX COMPLETED RESULTS TO [phone] * Lab:Comprehensive [place]. Litoe l Fast * Collection Date 10/13/2024 [...] - 10/13/2024 10:27 AM)?ValueReference Range?B Type Natriuretic [id number]<100 - pg/mL * Lab:URINE DIP STICK * [...] every 12 hrs. ? Referral To:Orthopedic Surgeons [facility] Orthopedic Surgery Reason:Evaluate and Treat Shoulder Pain [...] 10/17/2024 Generated for Lindsay jack/Stella/Bekahitting on: 0 12/26/2024 01:13 PM EDT History and Physical Notes * [...] Poor appetite or overeating: More than h detention the days Feeling bad about yourself o [...] Fall Risk Assessment:: No falls in the year COVID-19 Screening Questions Have you had [...] Referral Date Referring Provider Referred Provider Not es 10/17/2024 Jada [facility], Orthopedic Surgeons Evaluate and Treat Shoulder Pain Questioning Injections
[2024-12-26 12:56] VITALS: BP 102/58; PULSE 81; O2SAT 96; BMI 27.5
--- NOTE | 2024-12-26 12:56 | MHC.OFFVIS ---
Vital Signs 12/26/24 12:56 Height 5 ft 9 in Weight 186 lb BMI 27.5 BP 102/58 L Blood Pressure Location Lt brachial Position Sitting Pulse 81 Pulse Source Pulse Oximeter Pulse Oximetry (%) 96 Oxygen Delivery Method Room Air Intake Visit Reasons: copd/follow up CT Allergies No Known Allergies Allergy (Verified 12/26/24 13:04) HPI HPI copd/follow up CT: Details: 79-year-old gentleman, former greater than 40 pack-year smoker, quit over 20 years prior, now followed for moderate COPD and pulmonary nodule. He continues on Anoro and albuterol MDI with good control of his underlying symptoms. He denies recent exacerbations. His follow-up CT chest showed stable pulmonary nodule. [facility] Social History (Updated 05/29/24 @ 10:20 by Yaz Knight LPN) Patient Tobacco Use Status: Former Tobacco user Tobacco use type: Cigarette Years Smoked: 40 Review of Systems Const Denies daytime sleepiness, Denies excessive sweating, Denies fatigue, Denies fever(s), Denies lethargy, Denies malaise, Denies night sweats, Denies snoring and Denies weight loss Eyes Denies blurry vision and Denies itchy eyes ENT Denies nasal congestion, Denies post nasal drip, Denies sinus pain, Denies sinus pressure and Denies other ( Thrush) Card Denies chest pain, Denies pedal edema, Denies dyspnea, Denies orthopnea and Denies paroxysmal nocturnal dyspnea Resp Denies cough, Denies hemoptysis, Denies excessive phlegm production, Denies dyspnea, Denies snoring and Denies wheezing GI Denies abdominal pain and Denies heartburn Musc Denies myalgias, Denies arthralgias and Denies joint swelling Skin/Breast Denies rash Neuro Denies memory loss and Denies seizure-like activity Psych Denies abnormal sleep pattern, Denies anxiety and Denies memory loss Endo Denies excessive sweating, Denies fatigue and Denies heat intolerance Vern/Lymph Denies easy bruising Aller/Immun Denies itchy eyes, Denies seasonal rhinorrhea and Denies wheezing Physical Exam Vital Signs: Last Vital Signs Pulse 81 12/26/24 12:56 BP 102/58 L 12/26/24 12:56 Pulse Ox 96 12/26/24 12:56 Oxygen Delivery Method Room Air 12/26/24 12:56 BMI result Body Mass Index 27.5 Const General: no acute distress and alert Nutritional Appearance: not obese Orientation/consciousness: Other orientation findings ( oriented) HEENT Head: Yes atraumatic Eyes General: appearance normal, both eyes and all related structures Sclerae: sclerae normal EOM: EOMs intact bilaterally Neck Neck: Yes supple Lymphatic: no lymphadenopathy noted Resp Effort & Inspection: normal respiratory effort and no use of accessory muscles Auscultation: clear to auscultation bilaterally Cardio Rate: regular rate Rhythm: regular rhythm Heart sounds: no gallops, no murmurs and no rubs Skin General skin exam: other ( warm) Extrem General: No clubbing, No cyanosis and No edema Assessment & Plan Assessment & Plan (1) COPD (chronic obstructive pulmonary disease): Code(s): J44.9 - Chronic obstructive pulmonary disease, unspecified Category: Medical Plan: Well controlled on current regimen of Anoro and albuterol MDI. Continue current regimen. (2) Pulmonary nodule: Code(s): R91.1 - Solitary pulmonary nodule Category: Medical Plan: Results of CT chest from October of 2024 reviewed, stable pulmonary nodule, will repeat CT chest in 12 months, if stable at that time, no further imaging follow-up would be required. Orders: Orders CT chest wo IV con 10/26/25 R91.1 - Solitary pulmonary nodule Coding Level of Care Code Est Pt Level 4 (29294) Diagnoses COPD (chronic obstructive pulmonary disease) J44.9 Pulmonary nodule R91.1
--- OUTSIDE RECORDS SUMMARY | 2024-12-26 13:13 | XMS_ITS | Clinical Summary ---
Author Organization [facility] Address [address] [place] [address] Care Team Providers Care Panelboard Tank Pumper Name Role Phone Unavailable Primary Care Provider [...] Dental Perio Charting 1945 Dental Prophy 1945 Tobacco Screening 1945 Imm-DTaP/Tdap/Td (1 - Tdap) 1963 Imm-Pneumococcal 50+ (1 of 1 - PCV) 1994 Imm-Zoster, Recombinant (1 of 2) 1994 Falls Prevention 2009 Imm-RSV (adult) (1 - 1-dose 75+ series) 2019 Dental BW 12/07/2022 12/05/2021 Dental Examination 12/07/2022 12/05/2021 Hypertension Screening (#1) 03/11/2023 [id number] (1 - 2023- season) 2024 Alcohol and Drug Screen 05/24/2024 Depression Annual Screen 05/24/2024 Imm-Influenza (#1) 2025 Dental FMX/Pano 02/21/2027 02/19/2022, 12/05/2021 Procedures Procedure [...] Most Recently Relevant to Health Maintenance Insurance [place] [facility] DENTAL
--- OUTSIDE RECORDS SUMMARY | 2024-12-26 13:13 | XMS_ITS | Clinical Summary ---
Author Organization [employer] Address [address] [place] [address] Care Team Providers Care Certified Control Systems Technician Name Role Phone Unavailable Primary Care Provider [...] - 1-dose 75+ series) 2019 COVID-19 Vaccine (1 - 2023-2 5 season) 2024 Influenza Vaccine (#1) 2025 HIB Vaccines Aged Out No longer eligi [...] patient's age to complete this topic Meningococcal B Vaccine Aged Out No l onger eligible based on patient's age to complete [...]
== END 2024-12-26 13:32 | disposition home or self-care (01) ==
LOC: HO.HPS 12:39
PROVIDERS: PCP Internal Medicine Medical Oncology; Visit Provider Internal Medicine Pulmonary Disease
DX: J44.9 Chronic obstructive pulmonary disease, unspecified (principal); R91.1 Solitary pulmonary nodule
CPT/HCPCS: 99214

== ENCOUNTER → 2024-12-26 12:38 | Outpatient (BNVA) | payer MEDICARE, SELFPAY | PROVIDERS: PCP Internal Medicine Medical Oncology; Visit Provider Internal Medicine Pulmonary Disease | DX: R91.1 Solitary pulmonary nodule (principal); J44.9 Chronic obstructive pulmonary disease, unspecified | CPT/HCPCS: 99212 ==

== ENCOUNTER 2025-01-11 08:19 | Outpatient (REF) | payer MEDICARE, SELFPAY ==
--- OUTSIDE RECORDS SUMMARY | 2024-10-17 06:00 | XMS_ITS ---
Author Organization Miko Elias III, MD Address [address] [place] [address] DR [address]ESA [address] [place] [address] Care Team Providers Care Supervisor Patching Name Role Phone Miko Elias Primary Care Provider [phone] Allergies Allergen (clinical drug ingredient) Drug/Non Drug [...] Provider Speciality Internal M edicine Referred Provider [facility] er, Orthopedic Surgeons Referred Provider Specialty [...] Date Provider Diagnosis Miko Elias III, MD [address] [place] [address] DR CARVER, [place] [phone] 10/17/2024 Miko Elias Diabetes mellitus E1 1.9 [...] Treat Shoulder Pain Questioning Injections, Orthopedic Surgeons [facility] Next Appt Details Follow Up: 4 Months, Reason: OV Provider Name:Miko Elias, 02/16/2025 09:00:00 AM, [address] [place] [address] [address], [place], [phone], Provider Name:Miko Elias, 10/18/2025 10:00:00 AM, [address] [place] [address] [address], [place], [phone], Progress Notes * Sylvester ROCK EDOB:[birth year] (79 yo M)Acc No.[id number]:10/17/2024 Progress Notes Patient: Sylvester PHOENIX Provider: Fabian Elias MD :1945 A ge:79 Y S ex:Male Date:10/17/2024 Address:[address] [place] [address] , [place], [id number] Subjective: * Chief Complaints: * A nnual [...] oints 1 I nterpretation N egative H jeison was born in [place] and has been to [place] for 15 years. He has 1 stepson. 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 * Medications: [...] your next appointment,PLEASE FAX COMPLETED RESULTS TO [phone] * Lab:Lipid Panel * Collection Date 10/13/2024 [...] your next appointment,PLEASE FAX COMPLETED RESULTS TO [phone] * Lab:Complete Blood Count Aut o Diff [...] your next appointment,PLEASE FAX COMPLETED RESULTS TO [phone] * Lab:Comprehensive [place]. Litoe l Fast * Collection Date 10/13/2024 [...] - 10/13/2024 10:27 AM)?ValueReference Range?B Type Natriuretic [id number]<100 - pg/mL * Lab:URINE DIP STICK * [...] every 12 hrs. ? Referral To:Orthopedic Surgeons [facility] Orthopedic Surgery Reason:Evaluate and Treat [...] 10/17/2024 Generated for Lindsay jack/Stella/Bekahitting on: 0 01/11/2025 09:03 AM EDT History and Physical Notes * [...] Poor appetite or overeating: More than h usp the days Feeling bad about yourself o [...] Provider Referred Provider Not es 10/17/2024 Jada [facility], Orthopedic Surgeons Evaluate and Treat Shoulder Pain Questioning Injections
--- NOTE | ~2025-01-11 | XR_ITS ---
EXAMINATION: XR SHOULDER, LEFT CLINICAL INFORMATION: M25.519 - Pain in unspecified shoulder COMPARISON: None available. TECHNIQUE: Three views of the left shoulder. FINDINGS: Multifocal amorphous calcific density is present cephalad to the greater tuberosity. There is no dislocation. AC joint is intact. XR/XR shoulder LT min 2V IMPRESSION: Rotator cuff calcific tendinitis, probably within supraspinatus tendon. Electronically signed by: Trevon Cunha MD 01/11/2025 01:43 PM EDT
--- NOTE | ~2025-01-11 | XR_ITS ---
EXAMINATION: XR SHOULDER, RIGHT CLINICAL INFORMATION: M25.519 - Pain in unspecified shoulder COMPARISON: None available. TECHNIQUE: Three views of the right shoulder. FINDINGS: AC joint demonstrates small marginal osteophytes. There is no AC joint separation. Small marginal osteophyte formation is present involving glenoid and humeral head. There is no dislocation. XR/XR shoulder RT min 2V IMPRESSION: There are mild degenerative changes involving A.C. and glenohumeral joints. Electronically signed by: Trevon Cunha MD 01/11/2025 01:44 PM EDT
--- OUTSIDE RECORDS SUMMARY | 2025-01-11 09:04 | XMS_ITS | Clinical Summary ---
Author Organization [facility] Address [address] [place] [address] Care Team Providers Care Design Assembler Name Role Phone Unavailable Primary Care Provider [...] Maintenance Due Date Last Done Comments Dental Prophy 1945 Tobacco Screening 1945 Imm-DTaP/Tdap/Td (1 - Tdap) 1963 Imm-Pneumococcal 50+ (1 of 1 - PCV) 1994 Imm-Zoster, Recombinant (1 of 2) 1994 Falls Prevention 2009 Imm-RSV (adult) (1 - 1-dose 75+ series) 2019 Dental BW 12/07/2022 12/05/2021 Dental Examination 12/07/2022 12/05/2021 Hypertension Screening (#1) 03/11/2023 [id number] ( - 2023- season) 2024 Alcohol and Drug [...] to Health Maintenance Insurance [place] MEDICAID DENT[place] [facility] DENTAL
--- OUTSIDE RECORDS SUMMARY | 2025-01-11 09:04 | XMS_ITS | Clinical Summary ---
Author Organization [employer] Address [address] [place] [address] Care Team Providers Care Dinker Name Role Phone Unavailable Primary Care Provider [...]
== END 2025-01-11 08:20 | disposition home or self-care (01) ==
LOC: HO.HOSX 08:19
PROVIDERS: Visit Provider Physician Assistant
DX: M19.011 Primary osteoarthritis, right shoulder (principal); M19.012 Primary osteoarthritis, left shoulder; M25.511 Pain in right shoulder; M25.512 Pain in left shoulder
CPT/HCPCS: 20610; 73030; 99202; J1010; J2003

== ENCOUNTER 2025-01-11 12:50 | Outpatient (AMB) | payer MEDICARE, SELFPAY ==
--- NOTE | 2025-01-11 13:12 | A.OFFVIS_ITS ---
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 Patient states pain feels like a heart attack , starting at the joint, radiating to the left side of the chest and down the forearm. Patient reports associated numbness with it, all u through the arm . He states he had a cardiac work up that was fine. [facility] Most recent one done 6 years ago. He says at the time his sugars went up significantly. He is interested in a cortisone injection today. 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 Patient states pain feels like a heart attack , starting at the joint, radiating to the left side of the chest and down the forearm. Patient reports associated numbness with it, all u through the arm . He states he had a cardiac work up that was fine. He [facility] Most recent one done 6 years ago. He says at the time his sugars went up significantly. He is interested in a cortisone injection today. [facility] Surgical History (Updated 01/11/25 @ 13:17 by FILIPPO Willis) History of ankle surgery History of left knee surgery Social History (Updated 01/11/25 @ 13:16 by FILIPPO Willis) Patient Tobacco Use Status: Former Tobacco user Tobacco use type: Cigarette Years Smoked: 40 Current occupational status: retired Current occupation: rt handed Review of Systems Const All systems reviewed & are unremarkable except as noted in HPI and below Physical Exam Vital Signs: BMI result Body Mass Index 27.5 Extrem Other: Patient's left and right shoulders normal to inspection No erythema, ecchymosis, edema noted No lacerations, abrasions, open areas No evidence of infection Patient reports no tenderness to palpation of the bilateral shoulders Patient is able to forward flex bilateral shoulders to approximately 110 degrees, begins to experience discomfort in the left shoulder beyond this Able to externally rotate the right shoulder to approximately 70 degrees, left shoulder to approximately 50 degrees for now Distal sensation intact Capillary refill brisk Office Procedures AMB Joint Injection/Aspiration Joint Injection/Aspiration Primary Site: left shoulder Prep: site was prepped using aseptic technique, ethochloride spray was applied and injection warnings given Injected: 40 mg of, DepoMedrol, with 8 mL of and 1% plain lidocaine Procedure: The patient tolerated the procedure well and there was some relief with the local anesthesia Coding - Large joint Procedure code (CPT) selection complete Results Reviewed Results Reviewed: X-rays obtained in the office today and independently reviewed by me, Garth Covarrubias PA-C, demonstrate [id number] osteoarthritis of bilateral shoulders. Assessment & Plan Assessment & Plan (1) Osteoarthritis of shoulders, bilateral: Code(s): M19.011 - Primary osteoarthritis, right shoulder; M19.012 - Primary osteoarthritis, left shoulder Category: Medical Plan 1. Osteoarthritis of bilateral shoulders Patient is educated about this condition Patient is educated about the treatment options available Patient would like to proceed with steroid injection in the left shoulder at this time The risks and benefits of a steroid injection including but not limited to risk of damage to blood vessels, nerves, tendons, infection, skin bleaching, failure to improve symptoms, increased pain, and possible need for further injections or other intervention were discussed with the patient and the patient wishes to pro ceed with the steroid injection. Once consent was obtained, I aseptically prepped the area over the posterior soft space just below the acromion of the left shoulder. I then injected the area over the lateral epicondyle with a combination of 40 mg of dexamethasone and 8 mL of 1% lidocaine. The patient tolerated the procedure well with no complications. If the patient continues to experience symptoms over the following few weeks or months, they can make an appointment to return and discuss alternative treatment measures, such as physical therapy. Follow-up prn Orders: Orders XR Shoulder Gregory min 2V Today M25.511 - Pain in right shoulder, M25.512 - Pain in left shoulder Coding Level of Care Code New Pt Level 3 (48740) Diagnoses Osteoarthritis of shoulders, bilateral M19.011; M19.012 CPT Codes Coding - Large joint: 26271 - Large joint ([id number])
[2025-01-11 13:13] VITALS: BMI 27.5
== END 2025-01-11 13:46 | disposition home or self-care (01) ==
LOC: HO.HOS 12:50
PROVIDERS: PCP Internal Medicine Medical Oncology
DX: M19.011 Primary osteoarthritis, right shoulder (principal); M19.012 Primary osteoarthritis, left shoulder
CPT/HCPCS: 20610; 99203

== ENCOUNTER → 2025-01-11 12:59 | Outpatient (BNV) | payer MEDICARE, SELFPAY | PROVIDERS: Visit Provider Radiology Diagnostic Radiology | DX: M25.511 Pain in right shoulder (principal); M75.32 Calcific tendinitis of left shoulder | CPT/HCPCS: 73030 ==

== ENCOUNTER 2025-02-16 09:29 | Outpatient (REF) | payer MEDICARE, SELFPAY ==
--- OUTSIDE RECORDS SUMMARY | 2024-05-02 05:30 | XMS_ITS ---
Author Organization Miko Elias III, MD Address [address] [place] [address] [place] [address] Care Team Providers Care Ward Maid Name Role Phone Dr. Miko Elias III Primary Care Provider Allergies Allergen (clinical drug ingredient) Drug/Non Drug Allergy documented on EMR Reaction Allergy Type Onset Date Status oxycodone Oxycodone nausea, Stomach pain Drug Allergy Active dexamethasone Dexamethasone anxiety and insomnia Drug Allergy Active REASON FOR VISIT Benign prosthetic hypertrophy, Cardiomyopathy, Hyperlipidemia, Hypertension, Diabetes, Depression Medications Medication SIG (Take, Route, Frequency, Duration) Notes Start Date End Date Status Metoprolol Tartrate 100 MG TAKE 1 TABLET BY MOUTH TWICE A DAY WITH FOOD FOR 30 DAYS Active Ciprofloxacin HCl 250 MG 1 tablet Orally every 12 hrs 04/26/2024 Active Ciprofloxacin HCl 250 MG 1 tablet Orally every 12 hrs for 7 days 05/02/2024 05/09/2024 Active FLUoxetine HCl 20 MG TAKE 1 CAPSULE BY M OUTH EVERY DAY Active Tamsulosin HCl 0.4 MG 1 capsule Orally O nce a day 02/14/2024 Active Gabapentin 300 MG 1 capsule Orally thr ee times a day Active Lisinopril 10 MG TAKE 1 TABLET BY JEWELL TH EVERY DAY FOR 30 DAYS Active Ketoconazole 2 % APPLY DAILY TO SKIN TO AFFECTED AREA EVERY DAY FOR 30 DAYS Active Atorvastatin Calcium 10 MG TAKE 1 TABLET BY MOUTH EVERY DAY Active metFORMIN HCl 500 MG TAKE 2 TABLETS BY M OUTH TWICE A DAY Active Fish Oil 1000 MG 1 capsule with a alexi l Orally Once a day Active Adult Aspirin Low Strength 81 MG as directed Orally once a day Active Lancets - E 11.9 use to check blood sugars once a day - pt to check blood sugar once a day 12/05/2019 Active Viagra 100 MG 1 tablet as needed Orally Once a day as directed 10/08/2014 Active Social History Tobacco Use: Social History Observation Description Date Details (start date - stop date) Former Smoker NA - NA Sex Assigned At : Social History Observation Description Sex Assigned At Male Tobacco Use/Smoking Question Answer Notes Patient is a former smoker How long has it been since you last smoked? > 10 years Additional Findings: Tobacco Non-User Ex-cigaret te smoker Alcohol Screen Question Answer Notes Did you have a drink contain ing alcohol in the past year? Yes How often did you have a dri nk containing alcohol in the past year? Monthly or less (1 point) How many drinks did you have on a typical day when you were drinking in the past year? 1 or 2 drinks (0 point) How often did you have 6 or more drinks on one occasion in the past year? Never (0 point) Points 1 Interpretation Negative Problems Problem Type SNOMED Code ICD Code Onset Dates Problem Status W/U Status Risk Notes Problem [id number] Simple chronic bronchitis (J41.0) Active confirmed His chest x-ray is unremarkable. He received another course noman antibiotics at his request with a follow-up visit. Vital Signs Temperature 97.5 degrees Fahrenheit 05/02/20 24 Blood pressure systolic 140 mm Hg 05/02/20 24 Blood pressure diastolic 70 mm Hg 024 Heart Rate 67 /min 05/02/2024 Height 69 in 05/02/2024 Weight 180 lbs 05/02/2024 BMI 26.58 kg/m2 05/02/2024 Encounters Encounter Location Date Provider Diagnosis Miko Elias III, MD [address] [place] [address] [address] [place], [place] [id number] 05/02/2024 Miko Elias Simple chronic bronchitis J41.0 ; Environmental allergies Z91.09 ; Depression F32.9 ; Gout M10.9 ; Diabetes mellitus E11.9 ; Cardiomyopathy, unspecified type I42.9 ; Hyperlipidemia type II E78.01 and Former smoker Z87.891 Assessments Encounter Date Diagnosis (ICD Code) Assessment Notes Treat ment Notes Treatment Clinical Notes 05/02/2024 Simple chronic bronchitis (ICD-10 - J41.0) His chest x-ray is unremarkable. He received another course noman antibiotics at his request with a follow-up visit. 05/02/2024 Environmental allergies (ICD-10 - Z91.09) He reports an increase in his allergic symptoms recently. We reviewed and adjusted. His allergy regimen. 05/02/2024 Depression (ICD-10 - F32.9) . He occasionally has mild episodes of depressed feelings. This was present today but did not require additional treatment. 05/02/2024 Gout (ICD-10 - M10.9) A uric acid level will be checked in the future. He has had no recent attacks of gout. 05/02/2024 Diabetes mellitus (ICD-10 - E11.9) His fasting glucoses 119 his hemoglobin A1c is 6.1. We recommended additional weight loss but made no change in his regimen. 05/02/2024 Cardiomyopathy, unspecified type (ICD-10 - I42.9) His cardiomyopathy is well compensated and he is not short of breath with the routine activities of daily living. 05/02/2024 Hyperlipidemia type II (ICD-10 - E78.01) His total cholesterol was 120. No change in his regimen was needed. 05/02/2024 Former smoker (ICD-10 - Z87.891) He is highly motivated not to smoke and we have discussed strategies for maintenance of abstinence. Plan Of Treatment Medication Medication Name Sig Start Date Stop Date Notes Metoprolol Tartrate 100 MG TAKE 1 TABLET BY MOUTH TWICE A DAY WITH FOOD FOR 30 DAYS Ciprofloxacin HCl 250 MG 1 tablet Orally every 12 hrs 04/26/2024 Ciprofloxacin HCl 250 MG 1 tablet Orally every 12 hrs for 7 days 05/02/2024 05/09/2024 FLUoxetine HCl 20 MG TAKE 1 CAPSULE BY M OUTH EVERY DAY Tamsulosin HCl 0.4 MG 1 capsule Orally O nce a day 02/14/2024 Gabapentin 300 MG 1 capsule Orally thr ee times a day Lisinopril 10 MG TAKE 1 TABLET BY JEWELL TH EVERY DAY FOR 30 DAYS Ketoconazole 2 % APPLY DAILY TO SKIN TO AFFECTED AREA EVERY DAY FOR 30 DAYS Atorvastatin Calcium 10 MG TAKE 1 TABLET BY MOUTH EVERY DAY metFORMIN HCl 500 MG TAKE 2 TABLETS BY M OUTH TWICE A DAY Fish Oil 1000 MG 1 capsule with a alexi l Orally Once a day Adult Aspirin Low Strength 8 1 MG as directed Orally once a day Lancets - E 11.9 use to check blood sugars once a day - pt to check blood sugar once a day 12/05/2019 Viagra 100 MG 1 tablet as needed O rally Once a day as directed 10/08/2014 Next Appt Details Follow Up: 1 Week, Reason: O V Provider Name:Miko Elias , 06/22/2025 09:15:00 AM, [address] [place] [address] [address], [place], [address], Provider Name:Miko Elias , 10/18/2025 10:00:00 AM, [address] [place] [address] [address], [facility] [place], [address], Progress Notes * Sylvester ROCK EDOB:[birth year] (78 yo M)Acc No.[id number]:05/02/2024 Progress Notes Patient: Sylvester PHOENIX Provider: Fabian Elias MD :[id number] A ge:78 Y S ex:Male Date:05/02/2024 Address:[address] [place] [address] , [place], [id number] Subjective: * Chief Complaints: * B enign prosthetic hypertrophyCardiomyopathyHyperlipidemiaHypertensionDiabetesDepression * HPI: C OVID-19 Screening: Questions H ave you experienced fever, chills, cough, sore throat, shortness of breath, difficulty breathing, muscle aches, loss of taste or smell? N o H ave you been exposed to the virus within the last 10 days? N o H ave you travelled internationally in the last 10 days? N o H ave you been exposed to COVID-19 in the past? Y es * : The patient, a 78-year-old male, reported feeling unwell but has been showing signs of improvement. He was previously prescribed an antibiotic, Cipro, which he has been taking. The patient's symptoms are not clearly described, but he mentions that he is feeling better. The doctor has advised him to continue taking Cipro for another week, twice a day. * ROS: G eneral/Constitutional: pain o nly normal aches and pains. C hills d enies.?Fatigue a dmits. F ever d enies. E NT: Decreased hearing d enies. R espiratory: Cough C ontinued, prolonged, nonproductive. ? C ardiovascular: Chest pain with exertion d enies. D yspnea on exertion?denies. S hortness of breath d enies. G astrointestinal: Constipation o ccasional. D ecreased appetite d enies. D iarrhea d enies. H eartburn o ccasional. N ausea d enies. R ectal bleeding d enies. V omiting d enies. H ematology: bruising d enies. p etechiae d enies. S wollen glands n one have been noted. G enitourinary: Frequent urination o nce a night. M usculoskeletal: Muscle aches d enies. P ainful joints d enies. S ciatica d enies. W eakness d enies. S kin: Itching d enies. R vonda d enies. S kin lesion(s)?denies. N eurologic: Difficulty speaking d enies. D izziness d enies.?Headache d enies. L ow back pain d enies. P sychiatric: Depressed mood w hich is moderate. * Medical History: * Surgical History: l eft knee surgery fractured left tibia repair May 2013right kidney stone removal 08/11/2017tooth extraction 08/2021 * Hospitalization/Major Diagno stic Procedure: c hest pain 08/2018fall with facial laceration and sutures 07/2023 * Family History: F ather: 25 yrs, automobile accident. M other: 82 yrs, stroke. S iblings: . 2 brother(s) , 2 sister(s) - healthy. . A brother at 23 in an automobile accident. He has no children. He is not aware of any family history of substance use disorder, addiction or mental illness. * Social History: T obacco Use: T obacco Use/Smoking P atient is a f ormer smoker H ow long has it been since you last smoked??> 10 years A dditional Findings: Tobacco Non-User E x-cigarette smoker D rugs/Alcohol: D rugs H ave you used drugs other than those for medical reasons in the past 12 months? Y es Alcohol Screen D id you have a drink containing alcohol in the past year? Y es H ow often did you have a drink containing alcohol in the past year? M onthly or less (1 point) H ow many drinks did you have on a typical day when you were drinking in the past year? 1 or 2 drinks (0 point) H ow often did you have 6 or more drinks on one occasion in the past year? N ever (0 point) P oints 1 I nterpretation N egative Ama mchugh was born in [place] and has been to [place] for 15 years. He has 1 stepson. 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 * Medications: T akingFLUoxetine HCl 20 MG Capsule TAKE 1 CAPSULE BY MOUTH EVERY DAY Metoprolol Tartrate 100 MG Tablet TAKE 1 TABLET BY MOUTH TWICE A DAY WITH FOOD FOR 30 DAYS metFORMIN HCl 500 MG Tablet TAKE 2 TABLETS BY MOUTH TWICE A DAY Adult Aspirin Low Strength 81 MG Tablet Dispersible as directed Orally once a day Fish Oil 1000 MG Capsule 1 capsule with a meal Orally Once a day Viagra 100 MG Tablet 1 tablet as needed Orally Once a day as directed Lancets - Miscellaneous E 11.9 use to check blood sugars once a day - pt to check blood sugar once a day Lisinopril 10 MG Tablet TAKE 1 TABLET BY MOUTH EVERY DAY FOR 30 DAYS Gabapentin 300 MG Capsule 1 capsule Orally three times a day Atorvastatin Calcium 10 MG Tablet TAKE 1 TABLET BY MOUTH EVERY DAY Ketoconazole 2 % Cream APPLY DAILY TO SKIN TO AFFECTED AREA EVERY DAY FOR 30 DAYS Tamsulosin HCl 0.4 MG Capsule 1 capsule Orally Once a day Taking FLUoxetine HCl 20 MG Capsule TAKE 1 CAPSULE BY MOUTH EVERY DAY Taking Metoprolol Tartrate 100 MG Tablet TAKE 1 TABLET BY MOUTH TWICE A DAY WITH FOOD FOR 30 DAYS Taking metFORMIN HCl 500 MG Tablet TAKE 2 TABLETS BY MOUTH TWICE A DAY Taking Adult Aspirin Low Strength 81 MG Tablet Dispersible as directed Orally once a day Taking Fish Oil 1000 MG Capsule 1 capsule with a meal Orally Once a day Taking Viagra 100 MG Tablet 1 tablet as needed Orally Once a day as directed Taking Lancets - Miscellaneous E 11.9 use to check blood sugars once a day - pt to check blood sugar once a day Taking Lisinopril 10 MG Tablet TAKE 1 TABLET BY MOUTH EVERY DAY FOR 30 DAYS Taking Gabapentin 300 MG Capsule 1 capsule Orally three times a day Taking Atorvastatin Calcium 10 MG Tablet TAKE 1 TABLET BY MOUTH EVERY DAY Taking Ketoconazole 2 % Cream APPLY DAILY TO SKIN TO AFFECTED AREA EVERY DAY FOR 30 DAYS Taking Tamsulosin HCl 0.4 MG Capsule 1 capsule Orally Once a day DiscontinuedCiprofloxacin HCl 250 MG Tablet 1 tablet Orally every 12 hrs , stop date 05/03/2024Medication List reviewed and reconciled with the patientDiscontinued Ciprofloxacin HCl 250 MG Tablet 1 tablet Orally every 12 hrs , stop date 05/03/2024Medication List reviewed and reconciled with the patient * Allergies: D examethasone: anxiety and insomniaOxycodone: nausea, Stomach painno[Allergies Verified] Objective: * Vitals: H t: 69, Wt:180, BMI:26.58, BP:140/70, HR:67, Temp:97.5, Wt-k.65. * P ast Orders: L ab:Microalbumin, Random (Order Date - 04/25/2024) (Collection Date & Time - 04/25/2024 10:38 AM) Value Reference Range Creatinine Urine 168.08 - mg/dL Microalbumin Urine 30.0 - mg/L Microalbum Creatinine Ratio Ur 17.8 <30 - ug/ mg cr Clinical Info: Please fast for 12-14 hours prior to having this labwork done. You may have black coffee or tea with no milk or sugar. May have water,Please have this testing 1 week prior to your next appointment,PLEASE FAX COMPLETED RESULTS TO [phone] L ab:Comprehensive [place]. Panel Fast (Order Date - 04/25/2024) (Collection Date & Time - 04/25/2024 10:43 AM) Value Reference Range Sodium 138 135-145 - mmol/L Bilirubin Total 0.9 0.0-1.0 - mg/dL Aspartate Amino Transferase 38 H 5-37 - U/L Alanine Aminotransferase 12 0-40 - U/L Total Protein 7.0 6.5-8.0 - g/dL Albumin Level 4.3 3.5-5.0 - g/dL Alkaline Phosphatase 58 39-117 - U/L Potassium 4.8 3.3-5.1 - mmol/L Chloride 103 96-108 - mmol/L Carbon Dioxide 28 22-29 - mmol/L Anion Gap 12 12-20 - Blood Urea Nitrogen 17 H 9-16 - mg/dL Creatinine 1.09 0.5-1.4 - mg/dL Estimated Glomerular Filt Rate > 60 - Glucose Fasting 119 H 60-99 - mg/dL Calcium 9.6 8.4-10.2 - mg/dL L ab:Complete Blood Count Auto Diff (Order Date - 04/25/2024) (Collection Date & Time - 04/25/2024 10:43 AM) Value Reference Range White Blood Count 8.6 4.8-10.8 - X10*3/uL Red Blood Count 3.93 L 4.60-5.80 - X10*6/uL Hemoglobin 12.4 L 14.0-18.0 - g/dl Hematocrit 36.5 L 42.0-52.0 - % Mean Corpuscular Volume 92.9 80.0-98.0 - fL Mean Corpuscular Hemoglobin 31.6 27.0-33.0 - pg Mean Corpuscular HGB Conc 34.0 31.0-36.0 - g/ dl Red Cell Distribution Width 14.6 11.0-16.0 - % Platelet Count 218 160-400 - X10*3/uL Mean Platelet Volume 10.6 9.4-12.4 - fL Neutrophils Percent Auto 52.4 45-73 - % Imm Gran Pct Auto 0.5 H 0.0-0.4 - % Lymphocytes Percent Auto 31.6 20-40 - % Monocytes Percent Auto 9.6 2-11 - % Eosinophils Percent Auto 4.7 H 0-4 - % Basophils Percent Auto 1.2 0-2 - % NRBC Pct Auto 0.0 0.0-0.2 - /100WBC Neutrophils Absolute Auto 4.5 2.0-8.3 - x10* 3/uL Imm Gran Abs Auto 0.04 H 0.00-0.03 - X10*3/uL Lymphocytes Absolute Auto 2.7 1.2-4.9 - X10* 3/uL Monocytes Absolute Auto 0.8 0.1-1.2 - X10*3/ uL Eosinophils Absolute Auto 0.4 0.0-0.4 - X10* 3/uL Basophils Absolute Auto 0.1 0.0-0.2 - X10*3/ uL NRBC Abs Auto 0.000 0.0-0.012 - X10*3/uL L ab:Lipid Panel (Order Date - 04/25/2024) (Collection Date & Time - 04/25/2024 10:43 AM) Value Reference Range Triglycerides 183 H <150 - mg/dL Cholesterol 120 <200 - mg/dL LDL Cholesterol Calculated 49 <100 - mg/dL HDL Cholesterol 35 L >40 - mg/dL Clinical Info: Please fast for 12-14 hours prior to having this labwork done. You may have black coffee or tea with no milk or sugar. May have water,Please have this testing 1 week prior to your next appointment,PLEASE FAX COMPLETED RESULTS TO [phone] L ab:Hemoglobin A1c (Order Date - 04/25/2024) (Collection Date & Time - 04/25/2024 10:43 AM) Value Reference Range Hemoglobin A1c % 6.7 H <6.0 - % Estimated Average Glucose 146 - mg/dL Clinical Info: Please fast for 12-14 hours prior to having this labwork done. You may have black coffee or tea with no milk or sugar. May have water,Please have this testing 1 week prior to your next appointment,PLEASE FAX COMPLETED RESULTS TO [phone] * Examination: G eneral Examination: GENERAL APPEARANCE: p leasant, well nourished, well developed, in no acute distress, calm and relaxed, overweight, man. HEAD: a traumatic, normocephalic. EYES: e soni, perrla, anicteric, conjugate. EARS: n ormal. NOSE: s eptum intact. ORAL CAVITY: n ormal, unremarkable. NECK/THYROID: n o jugular venous distention, no carotid bruit, thyroid normal. LYMPH NODES: n o enlarged lymph nodes,spleen normal. SKIN: n o suspicious lesions, anicteric. HEART: n o clicks, gallops, murmurs, or rubs, regular rhythm, S1, S2 normal, no s3, or vascular bruits. LUNGS: , diminished breath sounds throughout, rhonchi on the RIGHT, rhonchi on the LEFT, good air movement. BREASTS: no masses palpable bilaterally. ABDOMEN: b owel sounds normal, no ascites, no organomegaly, no mass, overweight. RECTAL EXAM: n ot examined. MUSCULOSKELETAL: e xtremities unremarkable, no clubbing, cyanosis or edema. PERIPHERAL PULSES: n ormal. NEUROLOGIC: a lert and oriented, cranial nerves 2-12 grossly intact, deep tendon reflexes 2+ symmetrical, motor strength normal upper and lower extremities, sensory exam intact. PSYCH: a lert, oriented, anxious appearing, mood depressed.? Assessment: * Assessment: 1. S imple chronic bronchitis - J41.0 (Primary) N otes :His chest x-ray is unremarkable. He received another course noman antibiotics at his request with a follow-up visit. 2 . E nvironmental allergies - Z91.09 N otes :He reports an increase in his allergic symptoms recently. We reviewed and adjusted. His allergy regimen. 3 . D epression - F32.9 N otes :. He occasionally has mild episodes of depressed feelings. This was present today but did not require additional treatment. 4 . G out - M10.9 N otes :A uric acid level will be checked in the future. He has had no recent attacks of gout. 5 . D iabetes mellitus - E11.9 N otes :His fasting glucoses 119 his hemoglobin A1c is 6.1. We recommended additional weight loss but made no change in his regimen. 6 . C ardiomyopathy, unspecified type - I42.9 N otes :His cardiomyopathy is well compensated and he is not short of breath with the routine activities of daily living. 7 . H yperlipidemia type II - E78.01 N otes :His total cholesterol was 120. No change in his regimen was needed. 8 . F ormer smoker - Z87.891 N otes :He is highly motivated not to smoke and we have discussed strategies for maintenance of abstinence. Plan: * Treatment: * Procedure Codes: * Preventive Medicine: Counseling: C are goal follow-up plan: Counseling for abnormal BMI given Y es Above Normal BMI Follow-up D ietary management education, guidance, and counseling, Dietary needs education S moking/Tobacco Use Patient counseled on the dangers of tobacco use and urged to quit. 1 07/03/2023 DM Care Plan: P atient Lifestyle Goals P atient wants to be able to manage diabetes without too much effort. T reatment Goals H bA1C < 7.0, Blood Sugars less than < 115. B arriers n o barriers. S elf-Managment Goals W ork on weight loss, with a goal of losing 1 lb per week. * Follow Up: 1 Week (Reason: OV) * Images: * Sign off status: Completed true * Provider: Fabian Elias MD Date: 1 07/03/2023 Generated for Printi ng/Famarcyg/eTransmitting on: 0 02/16/2025 10:25 AM EDT History and Physical Notes * HPI (History of Present Illness) Category Sub-Category Detail Notes COVID-19 Screening Questions Have you had any new onset fever, chills, cough, congestion, sore throat, shortness of breath, muscle aches?: No Have you been exposed to the virus withi n the last 10 days?: No Have you travelled internationally in [facility] last 10 days?: No Have you been exposed to COVID-19 in the past?: Yes Examination Category Sub-Category Detail Notes General Examination GENERAL APPEARANCE: pleasant , well nourished, well developed, in no acute distress, calm and relaxed, overweight, man HEAD: atraumatic, normocep halic EYES: eomi, perrla, anicte natasha, conjugate EARS: normal NOSE: septum intact NECK/THYROID: no jugular venous di stention, no carotid bruit, thyroid normal HEART: no clicks, gallops, murmurs, or rubs, regular rhythm, S1, S2 normal, no s3, or vascular bruits LUNGS: , diminished breath sounds throughout, rhonchi on the RIGHT, rhonchi on the LEFT, good air movement ABDOMEN: bowel sounds normal, no ascites, no organomegaly, no mass, overweight NEUROLOGIC: alert and oriented, cranial nerves 2-12 grossly intact, deep tendon reflexes 2+ symmetrical, motor strength normal upper and lower extremities, sensory exam intact SKIN: no suspicious lesion s, anicteric PERIPHERAL PULSES: normal BREASTS: no masses palpable b ilaterally MUSCULOSKELETAL: extremities unremark able, no clubbing, cyanosis or edema LYMPH NODES: no enlarged lymph no joel,spleen normal RECTAL EXAM: not examined PSYCH: alert, oriented, anx ious appearing, mood depressed ORAL CAVITY: normal, unremarkable
--- OUTSIDE RECORDS SUMMARY | 2024-05-09 05:45 | XMS_ITS ---
Author Organization Miko Elias III, MD Address [address] [place] [address] [address] [place] [address] Care Team Providers Care Edge Banding Machine Offbearer Name Role Phone Dr. Miko Elias III Primary Care Provider [phone] Allergies Allergen (clinical drug ingredient) Drug/Non Drug [...] Date Provider Diagnosis Miko Elias III, MD [address] [place] [address] [address] [place] [address] 05/09/2024 Miko Elias Plan Of Treatment Medication [...] Name:Miko Elias , 06/22/2025 09:15:00 AM, [address] [facility] [address], [place], [address], Provider Name:Miko Elias , 10/18/2025 10:00:00 AM, [address] [facility] [address], [place], [address], Progress Notes * Sylvester ROCK EDOB:[birth year] (79 yo M)Acc No.[id number]:05/09/2024 Progress Notes Patient: Sylvester PHOENIX Provider: Fabian Elias MD :1945 A ge:78 Y S ex:Male Date:05/09/2024 Address:[address] [place] [address] , [facility], [id number] Subjective: * Chief Complaints: * 1 . [...] x-cigarette smoker H e was born in [place] and has been to [place] for 15 years. He has 1 stepson. 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 * Medications: [...] 07/10/2023 Generated for Jamini marcie/Stella/Bekahitting on: 0 02/16/2025 10:25 AM EDT History [...]
--- OUTSIDE RECORDS SUMMARY | 2024-10-02 11:38 | XMS_ITS ---
Author Organization Miko Elias III, MD Address [address] [place] [address] [place] [address] Care Team Providers Care Production Line Operator Name Role Phone Dr. Miko Elias III Primary Care Provider REASON FOR VISIT lab order request Social History Sex Assigned At : Social History Observation Description Sex Assigned At Male Encounters Encounter Location Date Provider Diagnosis Miko Elias III, MD [address] [place] [address] [place] [phone] 10/02/2024 Miko Elias Hypertriglyceridemia E78.1 ; Diabetes mellitus E11.9 ; Cardiomyopathy, unspecified type I42.9 ; BPH (benign prostatic hypertrophy) N40.0 and Essential hypertension I10 Assessments Encounter Date Diagnosis (ICD Code) Assessment Notes T reatment Notes Treatment Clinical Notes 10/02/2024 Hypertriglyceridemia (ICD-10 - E78.1) 10/02/2024 Diabetes mellitus (I CD-10 - E11.9) 10/02/2024 Cardiomyopathy, unspecified type (ICD-10 - I42.9) 10/02/2024 BPH (benign prostati c hypertrophy) (ICD-10 - N40.0) 10/02/2024 Essential hypertensi on (ICD-10 - I10) Plan Of Treatment Pending Test Test Name Order Date PROFILE, FASTING (COMPREHENSIVE METABOLI C) 10/02/2024 BRAIN NATRIURETIC PEPTIDE (BNP) 10/03/19 25 PSA, TOTAL 10/02/2024 CBC w DIFF 10/02/2024 Lipid Panel 10/02/2024 Microalbumin, Random 10/02/2024 Hemoglobin A1c 10/02/2024 Next Appt Details Provider Name:Miko Elias , 06/22/2025 09:15:00 AM, [address] [facility] [address], [place], [address], Provider Name:Miko Elias , 10/18/2025 10:00:00 AM, [address] [place] [address] [address], [place], [address], Progress Notes * Sylvester ROCK EDOB:[birth year] (79 yo M)Acc No.[id number]:10/02/2024 Patient: Sylvester PHOENIX :1945 A ge:79 Y S ex:Male Address:[address] [place] [address] , [place] [phone] Subjective: * Chief Complaints: * L ab order request * Medical History: * Surgical History: * Hospitalization/Major Diagno stic Procedure: * Medications: Objective: * Vitals: * Physical Examination: Assessment: * Assessment: 1. H ypertriglyceridemia - E78.1 2 . D iabetes mellitus - E11.9 ?3. C ardiomyopathy, unspecified type - I42.9 4 . B PH (benign prostatic hypertrophy) - N40.0 5 . E ssential hypertension - I10 Plan: * Treatment: 2. D iabetes mellitus L AB: PROFILE, FASTING (COMPREHENSIVE METABOLIC) L AB: BRAIN NATRIURETIC PEPTIDE (BNP) L AB: PSA, TOTAL L AB: CBC w DIFF L AB: Lipid Panel L AB: Microalbumin, Random L AB: Hemoglobin A1c 3. C ardiomyopathy, unspecified type L AB: PROFILE, FASTING (COMPREHENSIVE METABOLIC) L AB: BRAIN NATRIURETIC PEPTIDE (BNP) L AB: PSA, TOTAL L AB: CBC w DIFF L AB: Lipid Panel L AB: Microalbumin, Random L AB: Hemoglobin A1c 4. B PH (benign prostatic hypertrophy) L AB: PROFILE, FASTING (COMPREHENSIVE METABOLIC) L AB: BRAIN NATRIURETIC PEPTIDE (BNP) L AB: PSA, TOTAL L AB: CBC w DIFF L AB: Lipid Panel L AB: Microalbumin, Random L AB: Hemoglobin A1c 5. E ssential hypertension L AB: PROFILE, FASTING (COMPREHENSIVE METABOLIC) L AB: BRAIN NATRIURETIC PEPTIDE (BNP) L AB: PSA, TOTAL L AB: CBC w DIFF L AB: Lipid Panel L AB: Microalbumin, Random L AB: Hemoglobin A1c * Procedure Codes: * true * Date: Generated for Lindsay jack/Stella/eTransmitting on: 0 02/16/2025 10:25 AM EDT
--- OUTSIDE RECORDS SUMMARY | 2024-10-17 06:00 | XMS_ITS ---
Author Organization Miko Elias III, MD Address [address] [place] [address] [place] [address] Care Team Providers Care [employer] Analyst Name Role Phone Dr. Miko Elias III Primary Care Provider Allergies Allergen (clinical drug ingredient) Drug/Non Drug Allergy documented on EMR Reaction Allergy Type Onset Date Status oxycodone Oxycodone nausea, Stomach pain Drug Allergy Active No Known Food Allergy Unknown Drug Allergy Active dexamethasone Dexamethasone anxiety and insomnia Drug Allergy Active Results Component Value Reference Range Notes URINE DIP STICK Reviewed date:10/17/2024 10:09:51 AM Interpretation: Performing Lab: Notes/Report: SG 1.020 1.005 - 1.025 pH 5.0 5.0 - 9.0 YAANNA Negative Negative - NIT Negative Negative - PRO 15 Negative - Trace GLU Negative Negative - KET Negative Negative - UBG 0.2 0.1 - 1.8 HORACIO Negative 0.2 - 1.3 BLD Negative Negative - Reason For Referral Reason Evaluate and Treat Shoulder Pain Questioning Injections Diagnosis 1 Shoulder pain (M25.5 19) Referral Organization Miko Elias III, MD Referring Provider First Name Miko Referring Provider Last Name Jada Referring Provider Speciality Internal M edicine Referred Provider [facility] er, Orthopedic Surgeons Referred Provider Specialty Orthopedic S urgery General Notes Claudia Melo 10/23/2024 09:48:42 AM > referral faxed with progress note Referral Priority Routine Referral Appointment Date 01/11/2025 REASON FOR VISIT Annual Exam Medications Medication SIG (Take, Route, Frequency, Duration) Notes Start Date End Date Status Adult Aspirin Low Strength 81 MG as directed Orally once a day Active FLUoxetine HCl 20 MG TAKE 1 CAPSULE BY M OUTH EVERY DAY Active Fish Oil 1000 MG 1 capsule with a alexi l Orally Once a day Active Metoprolol Tartrate 100 MG TAKE 1 TABLET BY MOUTH TWICE A DAY WITH FOOD Active Lisinopril 10 MG TAKE 1 TABLET BY JEWELL TH EVERY DAY FOR 30 DAYS Active Tamsulosin HCl 0.4 MG 1 capsule Orally O nce a day Active Ketoconazole 2 % APPLY DAILY TO SKIN TO AFFECTED AREA EVERY DAY FOR 30 DAYS Active Atorvastatin Calcium 10 MG TAKE 1 TABLET BY MOUTH EVERY DAY Active metFORMIN HCl 500 MG TAKE 2 TABLETS BY M OUTH TWICE A DAY Active Ciprofloxacin HCl 250 MG 1 tablet Orally every 12 hrs 04/26/2024 Active Viagra 100 MG 1 tablet as needed Orally Once a day as directed 10/08/2014 Active Gabapentin 300 MG 1 capsule Orally thr ee times a day Active Lancets - E 11.9 use to check blood sugars once a day - pt to check blood sugar once a day 12/05/2019 Active Social History Tobacco Use: Social History Observation Description Date Details (start date - stop date) Former Smoker NA - NA Sex Assigned At : Social History Observation Description Sex Assigned At Male Tobacco Control (Standard) Question Answer Notes Tobacco use: Former smoker How long has it been since you last smoked? Grea ter than 10 years Additional Findings: Tobacco non-user Ex-cigaret te smoker AUDIT-C (Standard) Question Answer Notes Did you have a drink contain ing alcohol in the past year? Yes How often did you have six o r more drinks on one occasion in the past year? Less than monthly (1 point) How many drinks did you have on a typical day when you were drinking in the past year? 1 or 2 drinks (0 point) How often did you have a dri nk containing alcohol in the past year? Never (0 point) Points 1 Interpretation Negative Vital Signs Temperature 97.3 degrees Fahrenheit 10/18/19 25 Blood pressure systolic 111 mm Hg 10/18/19 25 Blood pressure diastolic 57 mm Hg 025 Heart Rate 64 /min 10/17/2024 Height 69 in 10/17/2024 Weight 185 lbs 10/17/2024 BMI 27.32 kg/m2 10/17/2024 Encounters Encounter Location Date Provider Diagnosis Miko Elias III, MD [address] [place] [address] [place] [address] 10/17/2024 Miko Elias Diabetes mellitus E1 1.9 ; Gout M10.9 ; Depression F32.9 ; Environmental allergies Z91.09 ; Overweight E66.3 ; Essential hypertension I10 ; Former smoker Z87.891 ; Hyperlipidemia type II E78.01 ; BPH (benign prostatic hypertrophy) N40.0 and Cardiomyopathy, unspecified type I42.9 Assessments Encounter Date Diagnosis (ICD Code) Assessment Notes Treat ment Notes Treatment Clinical Notes 10/17/2024 Diabetes mellitus (ICD-10 - E11.9) His hemoglobin A1c is 6.7 We recommended additional weight loss but made no change in his regimen.He well continue as is and attempt to lose weight steadily. 10/17/2024 Gout (ICD-10 - M10.9) A uric acid level will be checked in the future. He has had no recent attacks of gout. 10/17/2024 Depression (ICD-10 - F32.9) . He occasionally has mild episodes of depressed feelings. This was present today but did not require additional treatment. 10/17/2024 Environmental allergies (ICD-10 - Z91.09) He reports an increase in his allergic symptoms recently. We reviewed and adjusted. His allergy regimen. 10/17/2024 Overweight (ICD-10 - E66.3) His body mass index is slightly over 26. We discussed his diet and nutrition. We made plans to lose weight at a rate of one half of a pound per week. 10/17/2024 Essential hypertension (ICD-10 - I10) His blood pressure is Unremarkable. No change in his regimen as needed. 10/17/2024 Former smoker (ICD-10 - Z87.891) He is highly motivated not to smoke and we have discussed strategies for maintenance of abstinence. 10/17/2024 Hyperlipidemia type II (ICD-10 - E78.01) His total cholesterol was 120. No change in his regimen was needed. 10/17/2024 BPH (benign prostatic hypertrophy) (ICD-10 - N40.0) He will be continued on the tamsulosin. The urine culture showed no infection. 10/17/2024 Cardiomyopathy, unspecified type (ICD-10 - I42.9) His cardiomyopathy is well compensated and he is not short of breath with the routine activities of daily living. Plan Of Treatment Medication Medication Name Sig Start Date Stop Date Notes Adult Aspirin Low Strength 81 MG as dire cted Orally once a day FLUoxetine HCl 20 MG TAKE 1 CAPSULE BY M OUTH EVERY DAY Fish Oil 1000 MG 1 capsule with a alexi l Orally Once a day Metoprolol Tartrate 100 MG TAKE 1 TABLET BY MOUTH TWICE A DAY WITH FOOD Lisinopril 10 MG TAKE 1 TABLET BY JEWELL TH EVERY DAY FOR 30 DAYS Tamsulosin HCl 0.4 MG 1 capsule Orally O nce a day Ketoconazole 2 % APPLY DAILY TO SKIN TO AFFECTED AREA EVERY DAY FOR 30 DAYS Atorvastatin Calcium 10 MG TAKE 1 TABLET BY MOUTH EVERY DAY metFORMIN HCl 500 MG TAKE 2 TABLETS BY M OUTH TWICE A DAY Ciprofloxacin HCl 250 MG 1 tablet Orally every 12 hrs 04/26/2024 Viagra 100 MG 1 tablet as needed O rally Once a day as directed 10/08/2014 Gabapentin 300 MG 1 capsule Orally thr ee times a day Lancets - E 11.9 use to check blood sugars once a day - pt to check blood sugar once a day 12/05/2019 Pending Test Test Name Order Date PROFILE, FASTING (COMPREHENSIVE METABOLI C) 10/17/2024 CBC w DIFF 10/17/2024 Lipid Panel 10/17/2024 Microalbumin, Random 10/17/2024 Hemoglobin A1c 10/17/2024 Referrals Referral Date Details 10/17/2024 10/17/2024, Evaluate and Treat Shoulder Pain Questioning Injections, Orthopedic Surgeons [facility] Next Appt Details Follow Up: 4 Months, Reason: OV Provider Name:Miko Elias , 06/22/2025 09:15:00 AM, [address] [place] [address] [address], [place], [phone], Provider Name:Miko Elias , 10/18/2025 10:00:00 AM, [address] [place] [address] [place], [phone], Progress Notes * Sylvester ROCK EDOB:[birth year] (79 yo M)Acc No.[id number]:10/17/2024 Progress Notes Patient: W ALLIS, Sylvester E Provider: Fabian Elias MD :1945 A ge:79 Y S ex:Male Date:10/17/2024 Address:[address] [place] [address] , [place], [id number] Subjective: * Chief Complaints: * A nnual Exam * HPI: D epression Screening: He returns to the office at the age of 79 for his annual physical examination. He complains of pain in both shoulders where he has had a series of injections. The left shoulder is the worst. He recently saw his pulmonary physician, Dr. Mooney who is following a density in the left upper lobe of his lung on chest x-ray. A repeat CT scan has been scheduled for next December. He complains of being short of breath with prolonged exertion but not at rest. He is no longer smoking. He admits to nocturia twice a night on the average. We have discussed lifestyle modification as a way to reduce nocturia. PHQ-9 L ittle interest or pleasure in doing things?Nearly every day F eeling down, depressed, or hopeless M ore than half the days T rouble falling or staying asleep, or sleeping too much N early every day F eeling tired or having little energy N early every day P oor appetite or overeating M ore than half the days F eeling bad about yourself or that you are a failure, or have let yourself or your family down M ore than half the days T rouble concentrating on things, such as reading the newspaper or watching television N ot at all M oving or speaking so slowly that other people could have noticed; or the opposite, being so fidgety or restless that you have been moving around a lot more than usual S everal days T houghts that you would be better off or of hurting yourself in some way N ot at all T otal Score 1 6 I nterpretation M oderately Severe Depression C OVID-19 Screening: Questions H ave you had any new onset fever, chills, cough, congestion, sore throat, shortness of breath, muscle aches? N o F all Risk Screening: Fall History H ave you had any falls with injury in the past year? N o H ave you had two or more falls in the past year? N o F all Risk Assessment: N o falls in the past year S VITALIY Questions: SDOH Questions I n the past year have you been worried about losing your housing? N o I n the past year have you or any family members you live with been unable to get any of the following when it was really needed? Check all that apply: N one * ROS: G eneral/Constitutional: pain B oulders hips and knees. C hills d enies.?Fatigue a dmits. F ever d enies. E NT: Decreased hearing d enies. R espiratory: Cough d enies. C ardiovascular: Chest pain with exertion d enies. D yspnea on exertion?with prolonged activity. S hortness of breath w ith exertion. G astrointestinal: Constipation o ccasional. D ecreased appetite d enies. D iarrhea d enies. H eartburn d enies. N ausea d enies. R ectal bleeding d enies. V omiting d enies. H ematology: bruising d enies. p etechiae d enies. S wollen glands n one have been noted. G enitourinary: Frequent urination t wice a night. M usculoskeletal: Muscle aches d enies. P ainful joints d enies. S ciatica d enies. W eakness d enies. S kin: Itching d enies. R vonda d enies. S kin lesion(s)?denies. N eurologic: Difficulty speaking d enies. D izziness d enies.?Headache d enies. L ow back pain d enies. P sychiatric: Depressed mood w hich is mild. * Medical History: * Surgical History: l [...] Social History: T obacco Use: T obacco Control (Standard) T obacco use: F ormer smoker H ow long has it been since you last smoked??Greater than 10 years A dditional Findings: Tobacco non-user E x-cigarette smoker D rugs/Alcohol: D rugs H ave you used drugs other than those for medical reasons in the past 12 months? N o D rug/Alcohol: A TIMMY-C (Standard) D id you have a drink containing alcohol in the past year? Y es H ow often did you have six or more drinks on one occasion in the past year? L ess than monthly (1 point) H ow many drinks did you have on a typical day when you were drinking in the past year? 1 or 2 drinks (0 point) H ow often did you have a drink containing alcohol in the past year? N ever (0 point) P oints 1 I nterpretation N egative Ama mchugh was born in [place] and has been to [place] for 15 years. He has 1 stepson. 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 * Medications: T akingFLUoxetine HCl 20 MG Capsule TAKE 1 CAPSULE BY MOUTH EVERY DAY Adult Aspirin Low Strength 81 MG [...] to check blood sugar once a day Gabapentin 300 MG Capsule 1 capsule Orally three times a day Atorvastatin Calcium 10 MG Tablet TAKE 1 TABLET BY MOUTH EVERY DAY Ketoconazole 2 % Cream APPLY DAILY TO SKIN TO AFFECTED AREA EVERY DAY FOR 30 DAYS Lisinopril 10 MG Tablet TAKE 1 TABLET BY MOUTH EVERY DAY FOR 30 DAYS Metoprolol Tartrate 100 MG Tablet TAKE 1 TABLET BY MOUTH TWICE A DAY WITH FOOD metFORMIN HCl 500 MG Tablet TAKE 2 TABLETS BY MOUTH TWICE A DAY Tamsulosin HCl 0.4 MG Capsule 1 capsule Orally Once a day Taking FLUoxetine HCl 20 MG Capsule TAKE 1 CAPSULE BY MOUTH EVERY DAY Taking Adult Aspirin Low Strength 81 [...] check blood sugar once a day Taking Gabapentin 300 MG Capsule 1 capsule Orally three times a day Taking Atorvastatin Calcium 10 MG Tablet TAKE 1 TABLET BY MOUTH EVERY DAY Taking Ketoconazole 2 % Cream APPLY DAILY TO SKIN TO AFFECTED AREA EVERY DAY FOR 30 DAYS Taking Lisinopril 10 MG Tablet TAKE 1 TABLET BY MOUTH EVERY DAY FOR 30 DAYS Taking Metoprolol Tartrate 100 MG Tablet TAKE 1 TABLET BY MOUTH TWICE A DAY WITH FOOD Taking metFORMIN HCl 500 MG Tablet TAKE 2 TABLETS BY MOUTH TWICE A DAY Taking Tamsulosin HCl 0.4 MG Capsule 1 capsule Orally Once a day DiscontinuedCiprofloxacin HCl 250 MG Tablet 1 tablet Orally every 12 hrs Medication List reviewed and reconciled with the patientDiscontinued Ciprofloxacin HCl 250 MG Tablet 1 tablet Orally every 12 hrs Medication List reviewed and reconciled with the patient * Allergies: D examethasone: anxiety and insomniaOxycodone: nausea, Stomach painNo Known Food Allergyno[Allergies Verified] Objective: * Vitals: H t: 69, Wt:185, BMI:27.32, BP:111/57, HR:64, Temp:97.3, Wt-k.91. * P ast Orders: Lab:Microalbumin, Random * Collection Date 10/13/2024 04/25/2024 Collection Time 10:20 AM 10:38 AM Order Date 10/13/2024 04/25/2024 Creatinine Urine 82.66 (Ref Range: mg/dL) 168.08 (Ref Range: mg/dL) Microalbumin Urine 8.0 (Ref Range: mg/L) 30.0 (Ref Range: mg/L) Microalbum Creatinine Ratio Ur 9.6 (Ref Range: <30 ug/mg cr) 17.8 (Ref Range: <30 ug/mg cr) Clinical Info: Please fast for 12-14 hours prior to having this labwork done. You may have black coffee or tea with no milk or sugar. May have water,Please have this testing 1 week prior to your next appointment,PLEASE FAX COMPLETED RESULTS TO [phone] * Lab:Lipid Panel * Collection Date 10/13/2024 04/25/2024 Collection Time 10:27 AM 10:43 AM Order Date 10/13/2024 04/25/2024 Triglycerides 122 (Ref Range: <150 mg/dL) 183 H (Ref Range: <150 mg/dL) Cholesterol 92 (Ref Range: <200 mg/dL) 120 (Ref Range: <200 mg/dL) LDL Cholesterol Calculated 35 (Ref Range: <100 mg/dL) 49 (Ref Range: <100 mg/dL) HDL Cholesterol 33 L (Ref Range: >40 mg/dL) 35 L (Ref Range: >40 mg/dL) Clinical Info: Please fast for 12-14 hours prior to having this labwork done. You may have black coffee or tea with no milk or sugar. May have water,Please have this testing 1 week prior to your next appointment,PLEASE FAX COMPLETED RESULTS TO [phone] * Lab:Complete Blood Count Aut o Diff * Collection Date 10/13/2024 04/25/2024 Collection Time 10:27 AM 10:43 AM Order Date 10/13/2024 04/25/2024 White Blood Count 7.9 (Ref Range: 4.8-10.8 X10*3/uL) 8.6 (Ref Range: 4.8-10.8 X10*3/uL) Red Blood Count 3.95 L (Ref Range: 4.60-5.80 X10*6/uL) 3.93 L (Ref Range: 4.60-5.80 X10*6/uL) Hemoglobin 12.6 L (Ref Range: 14.0-18.0 g/dl) 12.4 L (Ref Range: 14.0-18.0 g/dl) Hematocrit 37.6 L (Ref Range: 42.0-52.0 %) 36.5 L (Ref Range: 42.0-52.0 %) Mean Corpuscular Volume 95.2 (Ref Range: 80.0-98.0 fL) 92.9 (Ref Range: 80.0-98.0 fL) Mean Corpuscular Hemoglobin 31.9 (Ref Range: 27.0-33.0 pg) 31.6 (Ref Range: 27.0-33.0 pg) Mean Corpuscular HGB Conc 33.5 (Ref Range: 31.0-36.0 g/dl) 34.0 (Ref Range: 31.0-36.0 g/dl) Red Cell Distribution Width 14.6 (Ref Range: 11.0-16.0 %) 14.6 (Ref Range: 11.0-16.0 %) Platelet Count 218 (Ref Range: 160-400 X10*3/uL) 218 (Ref Range: 160-400 X10*3/uL) Mean Platelet Volume 11.6 (Ref Range: 9.4-12.4 fL) 10.6 (Ref Range: 9.4-12.4 fL) Neutrophils Percent Auto 55.7 (Ref Range: 45-73 %) 52.4 (Ref Range: 45-73 %) Imm Gran Pct Auto 0.5 H (Ref Range: 0.0-0.4 %) 0.5 H (Ref Range: 0.0-0.4 %) Lymphocytes Percent Auto 32.3 (Ref Range: 20-40 %) 31.6 (Ref Range: 20-40 %) Monocytes Percent Auto 8.3 (Ref Range: 2-11 %) 9.6 (Ref Range: 2-11 %) Eosinophils Percent Auto 2.1 (Ref Range: 0-4 %) 4.7 H (Ref Range: 0-4 %) Basophils Percent Auto 1.1 (Ref Range: 0-2 %) 1.2 (Ref Range: 0-2 %) NRBC Pct Auto 0.0 (Ref Range: 0.0-0.2 /100WBC) 0.0 (Ref Range: 0.0-0.2 /100WBC) Neutrophils Absolute Auto 4.4 (Ref Range: 2.0-8.3 x10*3/uL) 4.5 (Ref Range: 2.0-8.3 x10*3/uL) Imm Gran Abs Auto 0.04 H (Ref Range: 0.00-0.03 X10*3/uL) 0.04 H (Ref Range: 0.00-0.03 X10*3/uL) Lymphocytes Absolute Auto 2.6 (Ref Range: 1.2-4.9 X10*3/uL) 2.7 (Ref Range: 1.2-4.9 X10*3/uL) Monocytes Absolute Auto 0.7 (Ref Range: 0.1-1.2 X10*3/uL) 0.8 (Ref Range: 0.1-1.2 X10*3/uL) Eosinophils Absolute Auto 0.2 (Ref Range: 0.0-0.4 X10*3/uL) 0.4 (Ref Range: 0.0-0.4 X10*3/uL) Basophils Absolute Auto 0.1 (Ref Range: 0.0-0.2 X10*3/uL) 0.1 (Ref Range: 0.0-0.2 X10*3/uL) NRBC Abs Auto 0.000 (Ref Range: 0.0-0.012 X10*3/uL) 0.000 (Ref Range: 0.0-0.012 X10*3/uL) ???Lab:Prostate Specific Antigen (Order Date - 10/13/2024) (Collection Date & Time - 10/13/2024 10:27 AM)?ValueReference Range?Prostate Specific Antigen3.53<0.05-4.0 - ng/mL * Lab:Hemoglobin A1c * Collection Date 10/13/2024 04/25/2024 Collection Time 10:27 AM 10:43 AM Order Date 10/13/2024 04/25/2024 Hemoglobin A1c % 6.7 H (Ref Range: <6.0 %) 6.7 H (Ref Range: <6.0 %) Estimated Average Glucose 146 (Ref Range: mg/dL) 146 (Ref Range: mg/dL) Clinical Info: Please fast for 12-14 hours prior to having this labwork done. You may have black coffee or tea with no milk or sugar. May have water,Please have this testing 1 week prior to your next appointment,PLEASE FAX COMPLETED RESULTS TO [phone] * Lab:Comprehensive [place]. [place] Fast * Collection Date 10/13/2024 04/25/2024 Collection Time 10:27 AM 10:43 AM Order Date 10/13/2024 04/25/2024 Sodium 135 (Ref Range: 135-145 mmol/L) 138 (Ref Range: 135-145 mmol/L) Bilirubin Total 1.2 H (Ref Range: 0.0-1.0 mg/dL) 0.9 (Ref Range: 0.0-1.0 mg/dL) Aspartate Amino Transferase 25 (Ref Range: 5-37 U/L) 38 H (Ref Range: 5-37 U/L) Alanine Aminotransferase 20 (Ref Range: 0-40 U/L) 12 (Ref Range: 0-40 U/L) Total Protein 7.4 (Ref Range: 6.5-8.0 g/dL) 7.0 (Ref Range: 6.5-8.0 g/dL) Albumin Level 4.6 (Ref Range: 3.5-5.0 g/dL) 4.3 (Ref Range: 3.5-5.0 g/dL) Alkaline Phosphatase 65 (Ref Range: 39-117 U/L) 58 (Ref Range: 39-117 U/L) Potassium 5.0 (Ref Range: 3.3-5.1 mmol/L) 4.8 (Ref Range: 3.3-5.1 mmol/L) Chloride 104 (Ref Range: 96-108 mmol/L) 103 (Ref Range: 96-108 mmol/L) Carbon Dioxide 24 (Ref Range: 22-29 mmol/L) 28 (Ref Range: 22-29 mmol/L) Anion Gap 12 (Ref Range: 12-20) 12 (Ref Range: 12-20) Blood Urea Nitrogen 23 H (Ref Range: 9-16 mg/dL) 17 H (Ref Range: 9-16 mg/dL) Creatinine 1.30 (Ref Range: 0.5-1.4 mg/dL) 1.09 (Ref Range: 0.5-1.4 mg/dL) Estimated Glomerular Filt Rate 53 > 60 Glucose Fasting 136 H (Ref Range: 60-99 mg/dL) 119 H (Ref Range: 60-99 mg/dL) Calcium 9.7 (Ref Range: 8.4-10.2 mg/dL) 9.6 (Ref Range: 8.4-10.2 mg/dL) ???Lab:B Type Natriuretic Peptide (Order Date - 10/13/2024) (Collection Date & Time - 10/13/2024 10:27 AM)?ValueReference Range?B Type Natriuretic Okrqmvk53<100 - pg/mL * Lab:URINE DIP STICK * Collection Date 10/17/2024 02/14/2024 10/13/2023 Collection Time 09:30 AM Order Date 10/17/2024 02/14/2024 10/13/2023 Result: normal SG 1.020 (Ref Range: 1.005 - 1.025) 1.015 (Ref Range: 1.005 - 1.025) 1.000 (Ref Range: 1.005 - 1.025) pH 5.0 (Ref Range: 5.0 - 9.0) 5.0 (Ref Range: 5.0 - 9.0) 5.0 (Ref Range: 5.0 - 9.0) AYANNA Negative (Ref Range: Negative -) Negative (Ref Range: Negative -) neg (Ref Range: Negative -) NIT Negative (Ref Range: Negative -) Negative (Ref Range: Negative -) neg (Ref Range: Negative -) PRO 15 (Ref Range: Negative - Trace) 15 (Ref Range: Negative - Trace) trace (Ref Range: Negative - Trace) GLU Negative (Ref Range: Negative -) Negative (Ref Range: Negative -) normal (Ref Range: Negative -) KET Negative (Ref Range: Negative -) Negative (Ref Range: Negative -) neg (Ref Range: Negative -) UBG 0.2 (Ref Range: 0.1 - 1.8) 0.2 (Ref Range: 0.1 - 1.8) normal (Ref Range: 0.1 - 1.8) HORACIO Negative (Ref Range: 0.2 - 1.3) Negative (Ref Range: 0.2 - 1.3) neg (Ref Range: 0.2 - 1.3) BLD Negative (Ref Range: Negative -) Negative (Ref Range: Negative -) neg (Ref Range: Negative -) Menstrating NR NR N/A * Examination: G eneral Examination: GENERAL APPEARANCE: p leasant, well nourished, well developed, in no acute distress, calm and relaxed, overweight, elderly man. HEAD: a traumatic, normocephalic. EYES: e [...] bruits. LUNGS: , diminished breath sounds throughout, no wheezes, rales, rhonchi, good air movement. BREASTS: no masses palpable bilaterally. ABDOMEN: b owel sounds normal, no ascites, no organomegaly, no mass. RECTAL EXAM: n ot examined. MUSCULOSKELETAL: e xtremities unremarkable, no clubbing, cyanosis or edema, Severe pain to elevation of right shoulder above the horizon. Decreased range of motion the. PERIPHERAL PULSES: n ormal. NEUROLOGIC: a lert and oriented, cranial nerves 2-12 grossly intact, deep tendon reflexes 2+ symmetrical, motor strength normal upper and lower extremities, sensory exam intact. PSYCH: speech clear, alert, oriented, cognitive function intact, thought process logical, goal directed. Assessment: * Assessment: 1. D iabetes mellitus - E11.9 (Primary) N otes :His hemoglobin A1c is 6.7 We recommended additional weight loss but made no change in his regimen.He well continue as is and attempt to lose weight steadily. 2 . G out - M10.9 N otes :A uric acid level will be checked in the future. He has had no recent attacks of gout. 3 . D epression - F32.9 N otes :. He occasionally has mild episodes of depressed feelings. This was present today but did not require additional treatment. 4 . E nvironmental allergies - Z91.09 N otes :He reports an increase in his allergic symptoms recently. We reviewed and adjusted. His allergy regimen. 5 . O verweight - E66.3 N otes :His body mass index is slightly over 26. We discussed his diet and nutrition. We made plans to lose weight at a rate of one half of a pound per week. 6 . E ssential hypertension - I10 N otes :His blood pressure is Unremarkable. No change in his regimen as needed. 7 . F ormer smoker - Z87.891 N otes :He is highly motivated not to smoke and we have discussed strategies for maintenance of abstinence. 8 . H yperlipidemia type II - E78.01 N otes :His total cholesterol was 120. No change in his regimen was needed. 9 . B PH (benign prostatic hypertrophy) - N40.0 N otes :He will be continued on the tamsulosin. The urine culture showed no infection. 1 0. C ardiomyopathy, unspecified type - I42.9 N otes :His cardiomyopathy is well compensated and he is not short of breath with the routine activities of daily living. Plan: * Treatment: 2. O thers Continue Tamsulosin HCl Capsule, 0.4 MG, 1 capsule, Orally, Once a day; C ontinue metFORMIN HCl Tablet, 500 MG, TAKE 2 TABLETS BY MOUTH TWICE A DAY; C ontinue Metoprolol Tartrate Tablet, 100 MG, TAKE 1 TABLET BY MOUTH TWICE A DAY WITH FOOD; C ontinue Lisinopril Tablet, 10 MG, TAKE 1 TABLET BY MOUTH EVERY DAY FOR 30 DAYS; C ontinue FLUoxetine HCl Capsule, 20 MG, TAKE 1 CAPSULE BY MOUTH EVERY DAY; C ontinue Adult Aspirin Low Strength Tablet Dispersible, 81 MG, as directed, Orally, once a day; C ontinue Fish Oil Capsule, 1000 MG, 1 capsule with a meal, Orally, Once a day; Continue Viagra Tablet, 100 MG, 1 tablet as needed, Orally, Once a day as directed; C ontinue Lancets Miscellaneous, -, E 11.9 use to check blood sugars once a day, -, pt to check blood sugar once a day; C ontinue Gabapentin Capsule, 300 MG, 1 capsule, Orally, three times a day; C ontinue Atorvastatin Calcium Tablet, 10 MG, TAKE 1 TABLET BY MOUTH EVERY DAY; C ontinue Ketoconazole Cream, 2 %, APPLY DAILY TO SKIN TO AFFECTED AREA EVERY DAY FOR 30 DAYS; C ontinue Ciprofloxacin HCl Tablet, 250 MG, 1 tablet, Orally, every 12 hrs. ? Referral To:[facility] Orthopedic Surgery Reason:Evaluate and Treat Shoulder Pain Questioning Injections * Labs: * L ab: URINE DIP STICK (Collection Date & Time - 10/17/2024) Value Reference Range S G 1.020 1.005 - 1.025 * p H 5.0 5.0 - 9.0 * L EU Negative Negative - * N IT Negative Negative - * P RO 15 Negative - Trace * G PACO Negative Negative - * K ET Negative Negative - * U BG 0.2 0.1 - 1.8 * B IL Negative 0.2 - 1.3 * B LD Negative Negative - * Procedure Codes: 8 1002 URINE-NO MICRO * Preventive Medicine: Counseling: C are goal follow-up plan: Counseling for abnormal BMI given Y es Above Normal BMI Follow-up D ietary management education, guidance, and counseling, Dietary needs education S moking/Tobacco Use Patient counseled on the dangers of tobacco use and urged to quit. 0 10/19/2024 DM Care Plan: P atient Lifestyle Goals P atient wants to be able to manage diabetes without too much effort. T reatment Goals B lood Sugars less than < 115, HbA1C < 7.0. B arriers n o barriers. S elf-Managment Goals W ork on weight loss, with a goal of losing 1 lb per week, Take blood sugars twice daily and keep a log. Bring log in to next appointment, Increase exercise to 3 times a week for 30 mins. * Follow Up: 4 Months (Reason: OV) * Images: * Sign off status: Completed true * Provider: Fabian Elias MD Date: 0 10/17/2024 Generated for Lindsay jack/Stella/Bekahitting on: 0 02/16/2025 10:25 AM EDT History and Physical Notes * HPI (History of Present Illness) Category Sub-Category Detail Notes Depression Screening PHQ-9 Little inte rest or pleasure in doing things: Nearly every day Feeling down, depressed, or hopeless: Mo re than half the days Trouble falling or staying asleep, or sl eeping too much: Nearly every day Feeling tired or having little energy: N early every day Poor appetite or overeating: More than h morenita the days Feeling bad about yourself o r that you are a failure, or have let yourself or your family down: More than half the days Trouble concentrating on thi ngs, such as reading the newspaper or watching television: Not at all Moving or speaking so slowly that other people could have noticed; or the opposite, being so fidgety or restless that you have been moving around a lot more than usual: Several days Thoughts that you would be b ashkan off or of hurting yourself in some way: Not at all Total Score: 16 Interpretation: Moderately Severe Depres gonzalo Fall Risk Screening Fall History Have you had any falls with injury in the past year?: No Have you had two or more falls in the year?: No Fall Risk Assessment:: No falls in the p year COVID-19 Screening Questions Have you had any new onset fever, chills, cough, congestion, sore throat, shortness of breath, muscle aches?: No SDOH Questions SDOH Questions In the past year have you been worried about losing your housing?: No In the past year have you or any family members you live with been unable to get any of the following when it was really needed? Check all that apply:: None Examination Category Sub-Category Detail Notes General Examination GENERAL APPEARANCE: pleasant , well nourished, well developed, in no acute distress, calm and relaxed, overweight, elderly man HEAD: atraumatic, normocep halic EYES: eomi, perrla, anicte natasha, conjugate EARS: normal NOSE: septum intact NECK/THYROID: no jugular venous di stention, no carotid bruit, thyroid normal HEART: no clicks, gallops, murmurs, or rubs, regular rhythm, S1, S2 normal, no s3, or vascular bruits LUNGS: , diminished breath sounds throughout, no wheezes, rales, rhonchi, good air movement ABDOMEN: bowel sounds normal, no ascites, no organomegaly, no mass NEUROLOGIC: alert and oriented, cranial nerves 2-12 grossly intact, deep tendon reflexes 2+ symmetrical, motor strength normal upper and lower extremities, sensory exam intact SKIN: no suspicious lesion s, anicteric PERIPHERAL PULSES: normal BREASTS: no masses palpable b ilaterally MUSCULOSKELETAL: extremities unremark able, no clubbing, cyanosis or edema, Severe pain to elevation of right shoulder above the horizon. Decreased range of motion the LYMPH NODES: no enlarged lymph no joel,spleen normal RECTAL EXAM: not examined PSYCH: speech clear, alert, oriented, cognitive function intact, thought process logical, goal directed ORAL CAVITY: normal, unremarkable Consultation Request Notes Referral Date Referring Provider Referred Provider Not marine 10/17/2024 [facility], Orthopedic Surgeons Evaluate and Treat Shoulder Pain Questioning Injections
--- OUTSIDE RECORDS SUMMARY | 2025-02-16 05:00 | XMS_ITS ---
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 Miko Elias III [...] Once a day as directed 10/08/2014 Active Lancets - E 11.9 use to check blood sugars once a day - pt to check blood sugar once a day 12/05/2019 Active Gabapentin 300 MG 1 capsule Orally thr ee times a day Active Ketoconazole 2 % APPLY DAILY TO SKIN TO AFFECTED AREA EVERY DAY FOR 30 DAYS Active Lisinopril 10 MG TAKE 1 TABLET BY JEWELL TH EVERY DAY FOR 30 DAYS Active FLUoxetine HCl 20 MG TAKE 1 CAPSULE BY M OUTH EVERY DAY Active Adult Aspirin Low Strength 81 MG as directed Orally once a day Active Fish Oil 1000 MG 1 capsule with a alexi l Orally Once a day Active Metoprolol Tartrate 100 MG TAKE 1 TABLET BY MOUTH TWICE A DAY WITH FOOD Active Tamsulosin HCl 0.4 MG 1 capsule Orally O nce a day Active metFORMIN HCl 500 MG TAKE 2 TABLETS BY M OUTH TWICE A DAY Active Atorvastatin Calcium 10 MG 1 tablet Oral ly Once a day Active Social History Tobacco Use: Social History Observation Description Date Details (start date - stop date) Former Smoker NA - NA Sex Assigned At : Social History Observation Description Sex Assigned At Male Tobacco Control (Standard) Question Answer Notes Tobacco use: Former smoker How long has it been since you last smoked? Saurabha ter than 10 years Additional Findings: Tobacco non-user Ex-cigaret te smoker Vital Signs Blood pressure systolic 115 mm Hg 02/17/20 25 Blood pressure diastolic 65 mm Hg 025 Heart Rate 63 /min 02/16/2025 Height 69 in 02/16/2025 Weight 187 lbs 02/16/2025 BMI 27.61 kg/m2 02/16/2025 Oximetry 97 % 02/16/2025 Encounters Encounter Location Date Provider Diagnosis Miko Elias III, MD [address] [place] [address] [place] [address] 02/16/2025 Miko Elias Hypertriglyceridemia E78.1 ; Diabetes mellitus E11.9 and Overweight E66.3 Assessments Encounter Date Diagnosis (ICD Code) Assessment Notes T reatment Notes Treatment Clinical Notes 02/16/2025 Hypertriglyceridemia (ICD-10 - E78.1) 02/16/2025 Diabetes mellitus (I CD-10 - E11.9) 02/16/2025 Overweight (ICD-10 - E66.3) Plan Of Treatment Medication Medication Name Sig Start Date Stop Date Notes Ciprofloxacin HCl 250 MG 1 tablet Orally every 12 hrs 04/26/2024 Viagra 100 MG 1 tablet as needed O rally Once a day as directed 10/08/2014 Lancets - E 11.9 use to check blood sugars once a day - pt to check blood sugar once a day 12/05/2019 Gabapentin 300 MG 1 capsule Orally thr ee times a day Ketoconazole 2 % APPLY DAILY TO SKIN TO AFFECTED AREA EVERY DAY FOR 30 DAYS Lisinopril 10 MG TAKE 1 TABLET BY JEWELL TH EVERY DAY FOR 30 DAYS FLUoxetine HCl 20 MG TAKE 1 CAPSULE BY M OUTH EVERY DAY Adult Aspirin Low Strength 81 MG as dire cted Orally once a day Fish Oil 1000 MG 1 capsule with a alexi l Orally Once a day Metoprolol Tartrate 100 MG TAKE 1 TABLET BY MOUTH TWICE A DAY WITH FOOD Tamsulosin HCl 0.4 MG 1 capsule Orally O nce a day metFORMIN HCl 500 MG TAKE 2 TABLETS BY M OUTH TWICE A DAY Atorvastatin Calcium 10 MG 1 tablet Orally Once a day Pending Test Test Name Order Date PROFILE, FASTING (COMPREHENSIVE METABOLI C) 02/16/2025 CBC w DIFF 02/16/2025 Lipid Panel 02/16/2025 Hemoglobin A1c 02/16/2025 Next Appt Details Follow Up: 4 Months, Reason: OV Provider Name:Miko Rafael Jada , 06/22/2025 09:15:00 AM, [address] [facility] [address], [place], [address], Provider Name:Miko Rafael Jada , 10/18/2025 10:00:00 AM, [address] [place] [address] [address], [place], [address], Progress Notes * Sylvester ROCK EDOB:[birth year] (79 yo M)Acc No.[id number]:02/16/2025 Progress Notes Patient: Veronique FARRELL Sylvester Mchugh Provider: Fabian Elias MD :1945 A ge:79 Y S ex:Male Date:02/16/2025 Address:[address] [place] [address] , [place], [id number] Subjective: * Chief Complaints: * 1 . Follow up. * HPI: C OVID-19 Screening: cortisone right should next week, no new issues, no gout back pain off and on, no stones, noct x 2. Questions H ave you had any new [...] dditional Findings: Tobacco non-user E x-cigarette smoker Ama mchugh was born in [place] and has been to [place] for 15 years. He has 1 stepson. 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 * Medications: T aking Tamsulosin HCl 0.4 MG Capsule 1 capsule Orally Once a day , Taking metFORMIN HCl 500 MG Tablet TAKE 2 TABLETS BY MOUTH TWICE A DAY , Taking Metoprolol Tartrate 100 MG Tablet TAKE 1 TABLET BY MOUTH TWICE A DAY WITH FOOD , Taking Lisinopril 10 MG Tablet TAKE 1 TABLET BY MOUTH EVERY DAY FOR 30 DAYS , Taking FLUoxetine HCl 20 MG Capsule TAKE 1 CAPSULE BY MOUTH EVERY DAY , Taking Adult Aspirin Low Strength [...] blood sugar once a day , Taking Gabapentin 300 MG Capsule 1 capsule Orally three times a day , Taking Ketoconazole 2 % Cream APPLY DAILY TO SKIN TO AFFECTED AREA EVERY DAY FOR 30 DAYS , Taking Ciprofloxacin HCl 250 MG Tablet 1 tablet Orally every 12 hrs , Taking Atorvastatin Calcium 10 MG Tablet 1 tablet Orally Once a day , Medication List reviewed and reconciled with the patient * Allergies: D examethasone: anxiety and insomnia, Oxycodone: nausea, Stomach pain, No Known Food Allergy. Objective: * Vitals: H t: 69, Wt:187, BMI:27.61, BP:115/65, HR:63, Oxygen sat %:97, Wt-k.82. * Examination: G eneral Examination: GENERAL APPEARANCE: [...] exam intact. PSYCH: a lert, oriented. Assessment: * Assessment: 1. H ypertriglyceridemia - E78.1 2 . D iabetes mellitus - E11.9 ?3. O verweight - E66.3 Plan: * Treatment: 2. D iabetes mellitus L AB: PROFILE, FASTING (COMPREHENSIVE METABOLIC) L AB: CBC w DIFF L AB: Lipid Panel L AB: Hemoglobin A1c 3. O verweight L AB: PROFILE, FASTING (COMPREHENSIVE METABOLIC) L AB: CBC w DIFF L AB: Lipid Panel L AB: Hemoglobin A1c 4. O thers Continue Atorvastatin Calcium Tablet, 10 MG, 1 tablet, Orally, Once a day; C ontinue Tamsulosin HCl Capsule, 0.4 MG, 1 capsule, [...] MG, as directed, Orally, once a day; Continue Fish Oil Capsule, 1000 MG, 1 capsule with a meal, Orally, Once a day; C ontinue Viagra Tablet, 100 MG, 1 tablet as needed, Orally, Once a day as directed; C ontinue Lancets Miscellaneous, -, E 11.9 use to check blood sugars once a day, -, pt to check blood sugar once a day; C ontinue Gabapentin Capsule, 300 MG, 1 capsule, Orally, three times a day; C ontinue Ketoconazole Cream, 2 %, APPLY DAILY TO SKIN TO AFFECTED AREA EVERY DAY FOR 30 DAYS; C ontinue Ciprofloxacin HCl Tablet, 250 MG, 1 tablet, Orally, every 12 hrs. * Procedure Codes: 9 4760 MEASURE BLOOD OXYGEN LEVEL * Follow Up: 4 Months (Reason: OV) * Images: * The named appointment provid er may or may not be the originator of this progress note, and it is not deemed complete until electronically signed by the appointment provider. Sign off status: Pending * Provider: Fabian Elias MD Date: 0 02/16/2025 Generated for Printi ng/Stella/eTransmitting on: 0 02/16/2025 10:25 AM EDT History [...]
[2025-02-16 09:46] LABS: MANUAL DIFF FLAG NO
--- OUTSIDE RECORDS SUMMARY | 2025-02-16 10:25 | XMS_ITS | Patient Health Record ---
Author Organization Miko Elias III, MD Address [address] [place] [address] [address] [place] [address] Care Team Providers Care Needle Process Felt Goods Supervisor Name Role Phone Dr. Miko Elias III Primary Care Provider Allergies Allergen (clinical drug ingredient) Drug/Non Drug Allergy documented on EMR Reaction Allergy Type Onset Date Status oxycodone Oxycodone nausea, Stomach pain Drug Allergy Active No Known Food Allergy Unknown Drug Allergy Active dexamethasone Dexamethasone anxiety and insomnia Drug Allergy Active Results Component Value Reference Range Notes Lipid Panel Reviewed date:04/25/2024 08:42:11 PM Interpretation: Performing Lab:[facility], [address] [place] [phone] Notes/Report: Triglycerides 183 <150 mg/dL Desirable Triglyceride: [...] Random Reviewed date:04/25/2024 08:42:11 PM Interpretation: Performing Lab:[address] [address] Notes/Report: Creatinine Urine 168.08 Microalbumin Urine 30.0 Microalbum/Creatinine Ratio Ur 17.8 <30 ug/mg cr Albumin/Creatinine Ratio Reference Ranges: Normal: < 30 ug/mg creatinine Microalbuminuria: 30 - 300 ug/mg creatinine Clinical Albuminuria: > 300 ug/mg creatinine Hemoglobin A1c Reviewed date:04/25/2024 08:42:11 PM Interpretation: Performing Lab:[address] [address] Notes/Report: Hemoglobin A1c % 6.7 <6.0 % [...] average glucose, using the formula of the T0Q-Sgetpag Average Glucose study (ADAG), Diabetes Care, Vol.31,#8, Dec. 2007 URINE DIP STICK Reviewed date:10/17/2024 10:09:51 AM Interpretation: Performing Lab: Notes/Report: SG 1.020 1.005 - 1.025 pH 5.0 5.0 - 9.0 AYANNA Negative Negative - NIT Negative Negative - PRO 15 Negative - Trace GLU Negative Negative - KET Negative Negative - UBG 0.2 0.1 - 1.8 HORACIO Negative 0.2 - 1.3 BLD Negative Negative - Complete Blood Count Auto Di ff Reviewed date:04/25/2024 08:42:11 PM Interpretation: Performing Lab:[address] [address] Notes/Report: White Blood Count 8.6 4.8-10.8 X10*3/uL [...] NRBC Abs Auto 0.000 0.0-0.012 X10*3/uL Comprehensive Horn[place]. Panel Fa st Reviewed date:04/25/2024 08:42:11 PM Interpretation: Performing Lab:[facility], [address] [place] [phone] Notes/Report: Sodium 138 135-145 mmol/L Potassium 4.8 [...] date:04/25/2024 08:42:11 PM Interpretation: Performing Lab: Notes/Report: [address] [address] XRay Report Signed Patient: Sylvester Rock MR#: [id number] 287 : 1945 Acct:[id number] Age/Sex: 78 / M ADM Date: 04/25/24 Loc: HO.XRAY Attending Dr: Miko Elias MD Ordering Physician: Miko Elias MD Date of Service: 04/25/24 Procedure(s): XR chest 2V Accession Number(s): [id number] cc: Miko Elias MD EXAMINATION: XR CHEST CLINICAL INFORMATION: Chronic cough. COMPARISON: None available. TECHNIQUE: 2 views of the chest were obtained. FINDINGS: There is no gross pneumothorax. Heart size is normal. Trace left pleural effusion. Patchy opacities in the asq-gy-kjwvc left lung. Deformity of several left ribs, possibly related to trauma of indeterminate age and this could be evaluated with dedicated views of the ribs. Degenerative changes in the thoracic spine. XR/XR chest 2V IMPRESSION: 1. Substantial patchy airspace opacities in the jmh-sv-oegah left lung. 2. Deformity of several left ribs, possibly related to trauma of indeterminate age and this could be evaluated with dedicated views of the ribs. This study was presented today April 25, 2024 for interpretation. Stat results provided at this time as requested by referring provider. 1. Electronically signed by: Angelika Barry MD 04/25/2024 01:12 PM [facility] Dictated By: Angelika Barry MD Signed By: <Electronically signed by Angelika Barry MD in OV> 04/25/24 1312 DD/ 1049 TD/TT: 04/25/24 110 Floor Coverer Apprentice: [address] [address] XRay Report Signed Patient: Dave Rock rd MR#: [id number] 287 : 1945 Acct:[id number] Age/Sex: 78 / M ADM Date: 04/25/24 Loc: HO.XRAY Attending Dr: Miko Elias MD Ordering Physician: Miko Elias MD Date of Service: 04/25/24 Procedure(s): XR jd st 2V Accession Number(s): [id number] cc: Miko Elias MD EXAMINATION: XR CHEST CLINICAL INFORMATION: Chronic cough. COMPARISON: None available. TECHNIQUE: 2 views of the chest were obtained. FINDINGS: There is no gross pneumothorax. Heart size is normal. Trace left pleural effusion. Patchy opacities in the zxx-zk-stbie left lung. Deformity of several left ribs, possibly related to trauma of indeterminate age an d this could be evaluated with dedicated views of the ribs. Degenerative changes in the thoracic spine. XR/XR chest 2V IMPRESSION: 1. Substantial patch y airspace opacities in the mtx-gn-kxtwr left lung. 2. Deformity of several left ribs, possibly related to trauma of indeterminate age an d this could be evaluated with dedicated views of the ribs. This study was presented today April 25, 2024 for interpretation. Stat results provide d at this time as requested by referring provider. 1. Electronically noy d by: Angelika Barry MD 04/25/2024 01:12 PM EST Dictated By: Angelika Barry MD Signed By: <Electronically signed by Angelika Barry MD in OV> 04/25/24 1312 DD/ 1049 TD/TT: 04/25/24 110 Floor Coverer Apprentice: CT chest wo margy Reviewed date:10/17/2024 10:09:22 AM Interpretation: Performing Lab: Notes/Report: [address] [address] [address] Scan Report Signed Patient: Sylvester Rock MR#: [id number] 287 : 1945 Acct:[id number] Age/Sex: 78 / M ADM Date: 06/30/24 Loc: HO.CT Attending Dr: Guy Mooney MD Ordering Physician: Guy Mooney MD Date of Service: 06/30/24 Procedure(s): CT chest wo IV con Accession Number(s): [id number] cc: Miko Elias MD; Guy Mooney MD Report Number: [id number]: Total DLP = 189.00 mGy-cm CLINICAL HISTORY: R93.89 - Abnormal findings on diagnostic imaging of other specified body... CT chest without contrast Comparison: None Findings: The heart is normal size. The visualized thyroid and mediastinum are unremarkable. There is focal left upper lobe consolidation. This may be related to pneumonia or subsegmental atelectasis. Given the focality of the finding, recommend a short-term 6 month follow-up chest CT to reassess. The visualized upper abdomen is unremarkable. No acute fractures. IMPRESSION: 1. Focal left upper lobe consolidation. Recommend short-term follow-up chest CT in 6 months to reassess.. This document has been electronically signed by: Rosalio Willis MD on 07/03/2024 08:35:16 Dictated By: Rosalio Willis MD Signed By: <Electronically signed by Rosalio Willis MD in OV> 07/03/2436 DD/ 4 TD/TT: 07/03/24834 Floor Coverer Apprentice: [address] [address] [address] Scan Report Signed Patient: Dave Rock rd MR#: [id number] 287 : 1945 Acct:[id number] Age/Sex: 78 / M ADM Date: 06/30/24 Loc: HO.CT Attending Dr: Guy Mooney MD Ordering Physician: Guy Mooney MD Date of Service: 06/30/24 Procedure(s): CT jd st wo IV con Accession Number(s): [id number] cc: Miko Elias MD; Guy Mooney MD Report Number: [id number]: Total DLP = 189.00 mGy-cm CLINICAL HISTORY: R93.89 - Abnormal findings on diagnostic imaging of other specified body... CT chest without contrast Comparison: None Findings: The heart is normal size. The visualized thyro id and mediastinum are unremarkable. There is focal left upper lobe consolidation. This may be related to pneumonia or subsegmental atelectasis. Given the focality o f the finding, recommend a short-term 6 month follow-up chest CT t o reassess. The visualized upper abdomen is unremarkable. No acute fractures. IMPRESSION: 1. Focal left upper lobe consolidation. Recommend short-term follow-up chest CT in 6 months to reassess.. This document has be en electronically signed by: Rosalio Willis MD on 07/03/2024 08:35:16 Dictated By: Rosalio Willis MD Signed By: <Electronically signed by Rosalio Willis MD in OV> 07/03/2436 DD/ 4 TD/TT: 07/03/24834 Floor Coverer Apprentice: Complete Blood Count Auto Di ff Reviewed date:10/17/2024 10:09:21 AM Interpretation: Performing Lab:[facility], [address] [place] [phone] Notes/Report: White Blood Count 7.9 4.8-10.8 X10*3/uL Red Blood Count 3.95 4.60-5.80 X10*6/uL Hemoglobin 12.6 14.0-18.0 g/dl Hematocrit 37.6 42.0-52.0 % Mean Corpuscular Volume 95.2 80.0-98.0 fL Mean Corpuscular Hemoglobin 31.9 27.0-33.0 pg Mean Corpuscular HGB Conc 33.5 31.0-36.0 g/dl Red Cell Distribution Width 14.6 11.0-16.0 % Platelet Count 218 160-400 X10*3/uL Mean Platelet Volume 11.6 9.4-12.4 fL Neutrophils Percent Auto 55.7 45-73 % Imm Gran Pct Auto 0.5 0.0-0.4 % Lymphocytes Percent Auto 32.3 20-40 % Monocytes Percent Auto 8.3 2-11 % Eosinophils Percent Auto 2.1 0-4 % Basophils Percent Auto 1.1 0-2 % NRBC Pct Auto 0.0 0.0-0.2 /100WBC Neutrophils Absolute Auto 4.4 2.0-8.3 x10*3/u L Imm Gran Abs Auto 0.04 0.00-0.03 X10*3/uL Lymphocytes Absolute Auto 2.6 1.2-4.9 X10*3/u L Monocytes Absolute Auto 0.7 0.1-1.2 X10*3/uL Eosinophils Absolute Auto 0.2 0.0-0.4 X10*3/u L Basophils Absolute Auto 0.1 0.0-0.2 X10*3/uL NRBC Abs Auto 0.000 0.0-0.012 X10*3/uL Comprehensive [place]. Panel Fa st Reviewed date:10/17/2024 10:09:22 AM Interpretation: Performing Lab:[facility], [address] [place] [phone] Notes/Report: Sodium 135 135-145 mmol/L Potassium 5.0 3.3-5.1 mmol/L Chloride 104 96-108 mmol/L Carbon Dioxide 24 22-29 mmol/L Anion Gap 12 12-20 Blood Urea Nitrogen 23 9-16 mg/dL Creatinine 1.30 0.5-1.4 mg/dL Estimated Glomerular Filt Rate 53 Chronic Kidney Disease: Estimated GFR < 60 mL/min/1.73m2 Severe Kidney Disease: Estimated GFR < 15 mL/min/1.73m2 Glucose Fasting 136 60-99 mg/dL A fasting glucose of 126 mg/dl or greater on more than one occasion is considered diagnostic of diabetes. Calcium 9.7 8.4-10.2 mg/dL Bilirubin Total 1.2 0.0-1.0 mg/dL Aspartate Amino Transferase 25 5-37 U/L Alanine Aminotransferase 20 0-40 U/L Total Protein 7.4 6.5-8.0 g/dL Albumin Level 4.6 3.5-5.0 g/dL Alkaline Phosphatase 65 39-117 U/L B Type Natriuretic Peptide Reviewed date:10/17/2024 10:09:21 AM Interpretation: Performing Lab:[facility], [address] [place] [phone] Notes/Report: B Type Natriuretic Peptide 25 <100 pg/mL Lipid Panel Reviewed date:10/17/2024 10:09:22 AM Interpretation: Performing Lab:[facility], [address] [place] [phone] Notes/Report: Triglycerides 122 <150 mg/dL Desirable Triglyceride: less than 150 mg/dL Borderline High Triglyceride 150-199 mg/dL High Triglyceride: 200-499 mg/dL Very High Triglyceride: greater than or equal to 5OO mg/dL Cholesterol 92 <200 mg/dL Desirable Cholesterol: less than 200 mg/dL Borderline High Cholesterol: 200-239 mg/dL High Cholesterol: greater than 239 mg/dL LDL Cholesterol Calculated 35 <100 mg/dL Desirable LDL: less than 100 mg/dL Near Optimal/Above Optimal LDL: 110-129 mg/dL Borderline High LDL: 130-159 mg/dL High LDL: 160-189 mg/dL Very High LDL: greater than or equal to 190 mg/dL HDL Cholesterol 33 >40 mg/dL Desirable HDL: greater than 40 mg/dL Note: This HDL assay may give artificially low results in patients with liver disease. Prostate Specific Antigen Reviewed date:10/17/2024 10:09:22 AM Interpretation: Performing Lab:[facility], [address] [place] [phone] Notes/Report: Prostate Specific Antigen 3.53 <0.05-4.0 ng/mL PSA methodology: Villasenor Alinity i Chemiluminescent Microparticle Immunoassay (CMIA) Microalbumin, Random Reviewed date:10/17/2024 10:09:21 AM Interpretation: Performing Lab:[facility], [address] [place] [phone] Notes/Report: Creatinine Urine 82.66 Microalbumin Urine 8.0 Microalbum/Creatinine Ratio Ur 9.6 <30 ug/mg cr Albumin/Creatinine Ratio Reference Ranges: Normal: < 30 ug/mg creatinine Microalbuminuria: 30 - 300 ug/mg creatinine Clinical Albuminuria: > 300 ug/mg creatinine Hemoglobin A1c Reviewed date:10/17/2024 10:09:21 AM Interpretation: Performing Lab:[facility], [address] [place] [phone] Notes/Report: Hemoglobin A1c % 6.7 <6.0 % [...] average glucose, using the formula of the E1L-Gyxspty Average Glucose study (ADAG), Diabetes Care, Vol.31,#8, Dec. 2007 CT chest wo con (Not yet rev iewed by provider) Interpretation: Performing Lab: Notes/Report: [address] [address] [address] Scan Report Signed Patient: Sylvester Rock MR#: [id number] 287 : 1945 Acct:[id number] Age/Sex: 79 / M ADM Date: 11/17/24 Loc: .CT Attending Dr: Guy Mooney MD Ordering Physician: Guy Mooney MD Date of Service: 11/17/24 Procedure(s): CT chest wo IV con Accession Number(s): [id number] cc: Miko Elias MD; Guy Mooney MD Report Number: [id number]: Total DLP = 189.00 mGy-cm EXAMINATION: CT CHEST WITHOUT IV CONTRAST INDICATION: R93.89 - Abnormal findings on diagnostic imaging of other specified body... COMPARISON: There are no prior studies available for comparison. TECHNIQUE: Helical CT scan of the chest was performed without intravenous contrast. Coronal and sagittal reformatted images were generated and reviewed. This CT exam was performed with one or more of the following dose reduction techniques: automated exposure control, adjustment of the mA and/or kV according to patient size, use of iterative reconstruction technique. DLP: 189 mGy-cm CHEST: THYROID: The thyroid is unremarkable. LUNGS: Again seen is an irregularly shaped groundglass nodule in the left upper lobe (series 4, images 65-69) which measures 2.4 x 1.6 x 1.0 cm on the current study (previously 2.6 x 1.6 x 1.2 cm). The remainder of the lungs are clear. MEDIASTINUM: Again seen is a 13 x 7 mm AP window lymph node. LIN: Evaluation of the hilar regions is limited by lack of intravenous contrast material. CARDIOVASCULATURE: The heart is normal in size. There is no pericardial effusion. The thoracic aorta is normal in caliber. DEGREE OF CORONARY CALCIFICATION: mild PLEURA: There is no pleural effusion. No pneumothorax. MAIN AIRWAYS: The mainstem bronchi and proximal branches are patent. AXILLA: There is no axillary lymphadenopathy. BONES AND SOFT TISSUES: There is degenerative disc disease of the spine. UPPER ABDOMEN: The visualized portions of the liver, spleen, and adrenals have an unremarkable unenhanced appearance. CT/CT chest wo IV con IMPRESSION: Persistent groundglass nodule in the left upper lobe, similar in size to the prior study. Continued follow-up is recommended with chest CT in 6 months. Electronically signed by: Miko Pulido MD 11/17/2024 08:28 AM EDT RP Dictated By: Miko Pulido MD Signed By: <Electronically signed by Miko Pulido MD in OV> 11/17/24 0828 DD/ 0759 TD/TT: 11/17/24 0814 Floor Coverer Apprentice: [place] [address] CT Scan Report Signed Patient: Dave Rock rd MR#: [id number] 287 : 1945 Acct:[id number] Age/Sex: 79 / M ADM Date: 11/17/24 Loc: .CT Attending Dr: Guy Mooney MD Ordering Physician: Guy Mooney MD Date of Service: 11/17/24 Procedure(s): CT jd st wo IV con Accession Number(s): [id number] cc: Miko Elias MD; Guy Mooney MD Report Number: [id number]: Total DLP = 189.00 mGy-cm EXAMINATION: CT CHES T WITHOUT IV CONTRAST INDICATION: R93.89 - Abnormal findings on diagnostic imaging of other specified body... COMPARISON: There ar e no prior studies available for comparison. TECHNIQUE: Helical C T scan of the chest was performed without intravenous contrast . Coronal and sagittal reformatted images were generated and reviewed. This CT exam was performed with one or more of the following dose reduction techniques : automated exposure control, adjustment of the mA and/or kV according to patient size, use of iterative reconstruction technique. DLP: 189 mGy-cm CHEST: THYROID: The thyroid is unremarkable. LUNGS: Again seen is an irregularly shaped groundglass nodule in the left upper lobe (series 4, images 65-69) which measures 2.4 x 1.6 x 1.0 cm on the current study (previously 2.6 x 1.6 x 1.2 cm). The remainder of the lungs are clear. MEDIASTINUM: Again seen is a 13 x 7 mm AP window lymph node. LIN: Evaluation of the hilar regions is limited by lack of intravenous contrast material. CARDIOVASCULATURE: T he heart is normal in size. There is no pericardial effusion . The thoracic aorta is normal in caliber. DEGREE OF CORONARY CALCIFICATION: mild PLEURA: There is no pleural effusion. No pneumothorax. MAIN AIRWAYS: The mainstem bronchi and proximal branches are patent. AXILLA: There is no axillary lymphadenopathy. BONES AND SOFT TISSUES: There is degenerative disc disease of the spine. UPPER ABDOMEN: The visualized portions of the liver, spleen, and adrenals have an unremarkable unenhanced appearance. __ CT/CT chest wo IV con IMPRESSION: Persistent groundgla ss nodule in the left upper lobe, similar in size to the prior study. Continued follow-up is recommended with chest CT in 6 months. Electronically noy d by: Miko Pulido MD 11/17/2024 08:28 AM EDT Dictated By: Miko Pulido MD Signed By: <Electronically signed by Miko Pulido MD in OV> 11/17/24827 DD/ 0759 TD/TT: 11/17/24813 Floor Coverer Apprentice: Reason For Referral Reason LLL opacities eval uate and treat Diagnosis 1 Former smoker (Z87.8 91) Diagnosis 2 Chronic cough (R05.3 ) Referral Organization Miko Elias III, MD Referring Provider First Name Miko Referring Provider Last Name Elias Referring Provider Speciality Internal M edicine Referred Provider [facility] er, Pulmonology Referred Provider Specialty Pulmonary Zenobia damon General Notes Tonia Singletary CMA 04/26 11:10:04 AM >ref/demo/progress note/labs/cxr faxed to [place] [facility] de[facility] . called made patient appt with Dr Armstrong for 05/29/2024 at 10:45am info called and mailed to patient Referral Priority Routine Referral Appointment Date 05/29/2024 Reason Evaluate and Treat Shoulder Pain Questioning Injections Diagnosis 1 Shoulder pain (M25.5 19) Referral Organization Miko Elias III, MD Referring Provider First Name Miko Referring Provider Last Name Jada Referring Provider Speciality Internal edicine Referred Provider [facility] er, Orthopedic Surgeons Referred Provider Specialty Orthopedic S niko General Notes Claudia Melo 10/23/2024 09:48:42 AM > referral faxed with progress note Referral Priority Routine Referral Appointment Date 01/11/2025 Medications Medication SIG (Take, Route, Frequency, Duration) Notes Start Date End Date Status Tamsulosin HCl 0.4 MG 1 capsule Orally O nce a day Active Ciprofloxacin HCl 250 MG 1 tablet Orally every 12 hrs 04/26/2024 Active metFORMIN HCl 500 MG TAKE 2 TABLETS BY M OUTH TWICE A DAY Active Viagra 100 MG 1 tablet as needed Orally Once a day as directed 10/08/2014 Active Lancets - E 11.9 use to check blood sugars once a day - pt to check blood sugar once a day 12/05/2019 Active Gabapentin 300 MG 1 capsule Orally thr ee times a day Active Atorvastatin Calcium 10 MG 1 tablet Oral ly Once a day Active Ketoconazole 2 % APPLY [...] MOUTH TWICE A DAY WITH FOOD Active Immunizations Vaccine Route Administration Date Status [...] Problem Status W/U Status Risk Notes Problem 9993287 Former smoker (Z87.891) Active confirmed He is highly motivated not to smoke and we have discussed strategies for maintenance of abstinence. Problem 948906262 Overweight (E66.3) Active confirmed His body mass index is slightly over 26. We discussed his diet and nutrition. We made plans to lose weight at a rate of one half of a pound per week. Problem 20716690 Depression (F32.9) Active confirmed . He occasionally has mild episodes of depressed feelings. This was present today but did not require additional treatment. Problem 23294068 Diabetes mellitus (E11.9) Active confirmed His hemoglobin A1c is 6.7 We recommended additional weight loss but made no change in his regimen.He well continue as is and attempt to lose weight steadily. Problem 85830663 Simple chronic bronchitis (J41.0) Active confirmed His chest x-ray is unremarkable. He received another course noman antibiotics at his request with a follow-up visit. 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 He is under the care of a urologist. Problem 40766257 Gout (M10.9) Active confirmed A uric acid level will be checked in the future. He has had no recent attacks of gout. Problem Benign prostatic hypertrophy without outflow obstruction (144531619) BPH (benign prostatic hypertrophy) (N40.0) Active confirmed He will be continued on the tamsulosin. The urine culture showed no infection. Problem 21973969 Essential hypertension (I10) Active confirmed His blood pressure is Unremarkable. No change in his regimen as needed. Problem 968812604 Environmental allergies (Z91.09) Active confirmed He reports an increase in his allergic symptoms recently. We reviewed and adjusted. His allergy regimen. Problem 884401809 Hypertriglyceri demia (E78.1) Active confirmed His last triglycerides are elevated 192. A repeat fasting lipid profile has been ordered. He was counseled about a low animal fat diet. Problem Pure hypercholesterolem ia (173469384) Hyperlipidemia type II (E78.01) Active confirmed His total cholesterol was 120. No change in his regimen was needed. Problem Acute low back pain (finding) (740708657) Acute low back pain without sciatica, unspecified back pain laterality (M54.5) Active confirmed His back pain has resolved and he has been to the urologist. Problem 30912362 Cardiomyopathy, unspecified type (I42.9) Active confirmed His cardiomyopathy is well compensated and he is not short of breath with the routine activities of daily living. Vital Signs Heart Rate 63 /min 02/16/2025 Temperature 97.3 degrees Fahrenheit 10/17/2024 Oximetry 97 % 02/16/2025 Blood pressure diastolic 65 mm Hg 02/16/2025 Height 69 in 02/16/2025 Blood pressure systolic 115 mm Hg 02/16/2025 Weight 187 lbs 02/16/2025 BMI 27.61 kg/m2 02/16/2025 Encounters Encounter Location Date Provider Diagnosis Miko Elias III, MD [address] [place] [address] [place] [address] 02/16/2025 Miko Elias Hypertriglyceridemia E78.1 ; Diabetes mellitus E11.9 and Overweight E66.3 Miko Elias III, MD [address] [place] [address] [place] [address] 02/22/2024 Miko Elias Cardiomyopathy, unsp ecified type I42.9 ; Diabetes mellitus E11.9 ; Gout M10.9 and BPH (benign prostatic hypertrophy) N40.0 Miko Elias III, MD [address] [place] [address] [place] [address] 04/25/2024 Miko Elias Diabetes mellitus E1 1.9 ; Overweight E66.3 ; Hyperlipidemia type II E78.01 ; Chronic cough R05.3 ; Gout M10.9 ; Depression F32.9 ; Environmental allergies Z91.09 and BPH (benign prostatic hypertrophy) N40.0 Miko Elias III, MD [address] [place] [address] [place] [address] 05/02/2024 Miko Elias Simple chronic [facility] hitis J41.0 ; Environmental allergies Z91.09 ; Depression F32.9 ; Gout M10.9 ; Diabetes mellitus E11.9 ; Cardiomyopathy, unspecified type I42.9 ; Hyperlipidemia type II E78.01 and Former smoker Z87.891 Miko Elias III, MD [address] [place] [address] [place] [address] 10/17/2024 Miko Elias Diabetes mellitus E1 1.9 ; Gout M10.9 ; Depression F32.9 ; Environmental allergies Z91.09 ; Overweight E66.3 ; Essential hypertension I10 ; Former smoker Z87.891 ; Hyperlipidemia type II E78.01 ; BPH (benign prostatic hypertrophy) N40.0 and Cardiomyopathy, unspecified type I42.9 Miko Elias III, MD [address] [place] [address] [address] [place], [place] [address] 04/26/2024 Miko Elias Former smoker Z87.89 1 and Chronic cough R05.3 Miko Elias III, MD [address] [place] [address] [address] [place] [address] 10/02/2024 Miko Elias Hypertriglyceridemia E78.1 ; Diabetes mellitus E11.9 ; Cardiomyopathy, unspecified type I42.9 ; BPH (benign prostatic hypertrophy) N40.0 and Essential hypertension I10 Assessments Encounter Date Diagnosis (ICD Code) Assessment Notes T reatment Notes Treatment Clinical Notes 02/16/2025 Hypertriglyceridemia (ICD-10 - E78.1) 02/22/2024 Diabetes mellitus (I CD-10 - E11.9) [...] reviewed and adjusted. His allergy regimen. 10/17/2024 Diabetes mellitus (I CD-10 - E11.9) His hemoglobin A1c is 6.7 We recommended additional weight loss but made no change in his regimen.He well continue as is and attempt to lose weight steadily. 10/17/2024 Gout (ICD-10 - M10.9) A uric aci d level will be checked in the future. He has had no recent attacks of gout. 04/26/2024 Former smoker (ICD-1 0 - Z87.891) 10/02/2024 Hypertriglyceridemia (ICD-10 - E78.1) 02/16/2025 Diabetes mellitus (I CD-10 - E11.9) 02/22/2024 Gout (ICD-10 - M10.9) A uric [...] but did not require additional treatment. 10/17/2024 Depression (ICD-10 - F32.9) . He occasionally has mild episodes of depressed feelings. This was present today but did not require additional treatment. 04/26/2024 Chronic cough (ICD-1 0 - R05.3) 10/02/2024 Diabetes mellitus (I CD-10 - E11.9) 02/16/2025 Overweight (ICD-10 - E66.3) 02/22/2024 BPH (benign prostati c hypertrophy) (ICD-10 [...] had no recent attacks of gout. 10/17/2024 Environmental allerg ies (ICD-10 - Z91.09) He reports an increase in his allergic symptoms recently. We reviewed and adjusted. His allergy regimen. 10/02/2024 Cardiomyopathy, unspecified type (ICD-10 - I42.9) 04/25/2024 Gout (ICD-10 - M10.9) A uric aci d level will be checked in the future. He has had no recent attacks of gout. 05/02/2024 Diabetes mellitus (I CD-10 - E11.9) His fasting glucoses 119 his hemoglobin A1c is 6.1. We recommended additional weight loss but made no change in his regimen. 10/17/2024 Overweight (ICD-10 - E66.3) His body mass index is slightly over 26. We discussed his diet and nutrition. We made plans to lose weight at a rate of one half of a pound per week. 10/02/2024 BPH (benign prostati c hypertrophy) (ICD-10 - N40.0) 04/25/2024 Depression (ICD-10 - F32.9) . He occasionally has mild episodes of depressed feelings. This was present today but did not require additional treatment. 05/02/2024 Cardiomyopathy, unspecified type (ICD-10 - I42.9) His cardiomyopathy is well compensated and he is not short of breath with the routine activities of daily living. 10/17/2024 Essential hypertensi on (ICD-10 - I10) His blood pressure is Unremarkable. No change in his regimen as needed. 10/02/2024 Essential hypertensi on (ICD-10 - I10) 04/25/2024 Environmental allerg ies (ICD-10 - Z91.09) He reports an increase in his allergic symptoms recently. We reviewed and adjusted. His allergy regimen. 05/02/2024 Hyperlipidemia type II (ICD-10 - E78.01) His total cholesterol was 120. No change in his regimen was needed. 10/17/2024 Former smoker (ICD-1 0 - Z87.891) He is highly motivated not to smoke and we have discussed strategies for maintenance of abstinence. 04/25/2024 BPH (benign prostati c hypertrophy) (ICD-10 [...] his regimen was needed. 10/17/2024 BPH (benign prostati c hypertrophy) (ICD-10 - N40.0) He will be continued on the tamsulosin. The urine culture showed no infection. 10/17/2024 Cardiomyopathy, unspecified type (ICD-10 - I42.9) His cardiomyopathy is well compensated and he is not short of breath with the routine activities of daily living. Plan Of Treatment Pending Test Test Name Order Date ELECTROLYTES 01/15/2020 PROFILE, FASTING (COMPREHENSIVE METABOLI C) 11/12/2020 PROFILE, FASTING (COMPREHENSIVE METABOLI C) 08/09/2020 PROFILE, FASTING (COMPREHENSIVE METABOLI C) 06/18/2021 PROFILE, FASTING (COMPREHENSIVE METABOLI C) 07/21/2019 PROFILE, FASTING (COMPREHENSIVE METABOLI C) 02/16/2025 PROFILE, FASTING (COMPREHENSIVE METABOLI C) 12/17/2021 PROFILE, FASTING (COMPREHENSIVE METABOLI C) 08/26/2023 PROFILE, FASTING (COMPREHENSIVE METABOLI C) 10/17/2024 PROFILE, FASTING (COMPREHENSIVE METABOLI C) 05/03/2020 PROFILE, FASTING (COMPREHENSIVE METABOLI C) 10/13/2023 PROFILE, FASTING (COMPREHENSIVE METABOLI C) 10/02/2024 PROFILE, FASTING (COMPREHENSIVE METABOLI C) 03/12/2023 PROFILE, FASTING (COMPREHENSIVE METABOLI C) 03/13/2019 PROFILE, FASTING (COMPREHENSIVE METABOLI C) 10/11/2018 PROFILE, FASTING (COMPREHENSIVE METABOLI C) 03/30/2018 PROFILE, FASTING (COMPREHENSIVE METABOLI C) 01/30/2019 PROFILE, FASTING (COMPREHENSIVE METABOLI C) 08/27/2021 PROFILE, FASTING (COMPREHENSIVE METABOLI C) 12/08/2019 PROFILE, FASTING (COMPREHENSIVE METABOLI C) 11/11/2022 PROFILE, FASTING (COMPREHENSIVE METABOLI C) 10/20/2019 PROFILE, FASTING (COMPREHENSIVE METABOLI C) 02/17/2021 PROFILE, FASTING (COMPREHENSIVE METABOLI C) 07/29/2022 PROFILE, RANDOM (COMPREHENSIVE METABOLIC ) 01/15/2020 HEMOGLOBIN A1C (GLYCOHEMOGLOBIN) 020 HEMOGLOBIN A1C (GLYCOHEMOGLOBIN) 020 HEMOGLOBIN A1C (GLYCOHEMOGLOBIN) 023 HEMOGLOBIN A1C (GLYCOHEMOGLOBIN) 021 HEMOGLOBIN A1C (GLYCOHEMOGLOBIN) 022 HEMOGLOBIN A1C (GLYCOHEMOGLOBIN) 022 HEMOGLOBIN A1C (GLYCOHEMOGLOBIN) 020 HEMOGLOBIN A1C (GLYCOHEMOGLOBIN) 020 HEMOGLOBIN A1C (GLYCOHEMOGLOBIN) 019 HEMOGLOBIN A1C (GLYCOHEMOGLOBIN) 019 HEMOGLOBIN A1C (GLYCOHEMOGLOBIN) 019 CALCIUM 10/11/2018 URIC ACID 10/11/2018 URIC ACID 03/30/2018 LIPID PANEL 03/30/2018 LIPID PANEL 11/11/2022 LIPID PANEL 01/30/2019 LIPID PANEL 02/17/2021 LIPID PANEL 08/09/2020 LIPID PANEL 10/20/2019 LIPID PANEL 07/29/2022 LIPID PANEL 11/12/2020 LIPID PANEL 10/11/2018 LIPID PANEL 08/27/2021 LIPID PANEL 06/18/2021 LIPID PANEL 07/21/2019 LIPID PANEL 05/03/2020 LIPID PANEL 03/13/2019 LDH 10/11/2018 FREE T4 (FT4) 12/27/2019 FREE T4 (FT4) 10/11/2018 TSH (THYROID STIMULATING HORMONE) 2019 TSH (THYROID STIMULATING HORMONE) 2018 BRAIN NATRIURETIC PEPTIDE (BNP) 12/27/19 20 BRAIN NATRIURETIC PEPTIDE (BNP) 10/03/19 25 PSA, TOTAL 08/26/2023 PSA, TOTAL 07/29/2022 PSA, TOTAL 08/27/2021 PSA, TOTAL 03/12/2023 PSA, TOTAL 10/02/2024 PSA, TOTAL SCREEN 02/17/2021 MICROALBUMIN, RANDOM 08/09/2020 MICROALBUMIN, RANDOM 10/20/2019 MICROALBUMIN, RANDOM 11/12/2020 MICROALBUMIN, RANDOM 08/27/2021 CBC w DIFF 03/13/2019 CBC w DIFF 08/27/2021 CBC w DIFF 01/15/2020 CBC w DIFF 10/11/2018 CBC w DIFF 12/08/2019 CBC w DIFF 03/30/2018 CBC w DIFF 11/11/2022 CBC w DIFF 01/30/2019 CBC w DIFF 02/16/2025 CBC w DIFF 12/17/2021 CBC w DIFF 10/17/2024 CBC w DIFF 02/17/2021 CBC w DIFF 08/09/2020 CBC w DIFF 06/18/2021 CBC w DIFF 10/20/2019 CBC w DIFF 07/29/2022 CBC w DIFF 07/21/2019 CBC w DIFF 11/12/2020 CBC w DIFF 05/03/2020 CBC w DIFF 10/02/2024 SED RATE (ESR) 10/11/2018 SED RATE (ESR) 12/08/2019 MONO TEST (HETEROPHILE AB) 12/27/2019 URINALYSIS (UA) 10/11/2018 LYME DISEASE IgG/IgM WB 12/27/2019 CT ABD & PELVIS WITH CONTRAST 12/20/2017 XR LUMBAR SPINE 4+ VIEWS 10/19/2017 US RENAL BILATERAL 02/17/2021 US RENAL BILATERAL 08/04/2017 US URINARY BLADDER 08/04/2017 US URINARY BLADDER 02/17/2021 Echocardiogram 12/27/2019 Stress Test 03/30/2018 CBC WITH AUTO DIFF 10/13/2023 CBC WITH AUTO DIFF 08/26/2023 CBC WITH AUTO DIFF 03/12/2023 Uric Acid 03/12/2023 Lipid Panel 10/02/2024 Lipid Panel 03/12/2023 Lipid Panel 02/16/2025 Lipid Panel 12/17/2021 Lipid Panel 10/17/2024 Lipid Panel 10/13/2023 Lipid Panel 08/26/2023 Microalbumin, Random 08/26/2023 Microalbumin, Random 10/02/2024 Microalbumin, Random 10/17/2024 Microalbumin, Random 10/13/2023 CT chest wo con 11/17/2024 Hemoglobin A1c 10/17/2024 Hemoglobin A1c 10/13/2023 Hemoglobin A1c 08/26/2023 Hemoglobin A1c 10/02/2024 Hemoglobin A1c 02/16/2025 Hemoglobin A1c 12/17/2021 Hemoglobin A1c 08/09/2020 Next Appt Details Provider Name:Miko Elias , 06/22/2025 09:15:00 AM, [address] [place] [address] MOSHE LAGOS, [place], [address], Provider Name:Miko Elias , 10/18/2025 10:00:00 AM, [address] [facility] MOSHE LAGOS, [place] ROBLES, [address], Insurance Providers Payer Name Payer Address Payer Phone Subscriber Number Group Number Insured Name Patient Relationship to Insured Coverage Start Date Coverage End Date [employer] [address] [place] [phone] [id number] Sylvester Rock Self - patient is the insured MEDICAID [facility] [address] [facility] [id number] [phone] [id number] Sylvester Rock Self - patient is the insured MEDICARE [employer] [address] [place] [address] [id number] Sylvester Rock Self - patient is the insured Medical (General) History Medical History History ICD Code depression gout hypertension, benign cataracts sleep apnea diabetes mellitus 2006 allergies fractured left tibia May 30, 2013 hypertriglyceridemia low back pain September 2017 Nephrolithiasis Surgical History Surgery Date(Month/Year) tooth extraction 08/2021 right kidney stone removal 08/11/2017 fractured left tibia repair May 2013 left knee surgery Hospitalization History Reason Date(Month/Year) fall with facial laceration and sutures 07/2023 chest pain 08/2018
--- OUTSIDE RECORDS SUMMARY | 2025-02-16 10:25 | XMS_ITS | Encounter Summary ---
Author Organization [facility] Address [address] [place] [address] [address] [place] [address] Care Team Providers Care Forge Shop Machine Repairer Name Role Phone Unavailable Primary Care Provider Unavailabl e Encounter Details Date Type Department Care Team (Latest Contact Info) Description 07/01/2018 Abstract [facility] CONVERSIONS Dental, Provider, DDS Social History [...]
--- OUTSIDE RECORDS SUMMARY | 2025-02-16 10:25 | XMS_ITS | Clinical Summary ---
Author Organization [facility] Address [address] [facility] [address] [place] [address] Care Team Providers Care Loan Services Professional Name Role Phone Unavailable Primary Care Provider [...] COVID-19 Vaccine (1 - 2023-2 5 season) 2025 Influenza Vaccine (#1) 2025 HIB Vaccines Aged [...]
[2025-02-16 10:51] LABS: Hematocrit 36.4 % (42.0-52.0); Hemoglobin 12.3 g/dl (14.0-18.0); Imm Gran Abs Auto 0.07 X10*3/uL (0.00-0.03); Imm Gran Pct Auto 0.8 % (0.0-0.4); Lymphocytes Absolute Auto 2.6 X10*3/uL (1.2-4.9); Mean Corpuscular HGB Conc 33.8 g/dl (31.0-36.0); Mean Corpuscular Hemoglobin 32.4 pg (27.0-33.0); Mean Corpuscular Volume 95.8 fL (80.0-98.0); NRBC Abs Auto 0.020 X10*3/uL (0.0-0.012); NRBC Pct Auto 0.2 /100WBC (0.0-0.2); Platelet Count 226 X10*3/uL (160-400); Red Blood Count 3.80 X10*6/uL (4.60-5.80); White Blood Count 9.3 X10*3/uL (4.8-10.8)
[2025-02-16 11:02] LABS: Hemoglobin A1C 184.2680 umol/L; Total Hemoglobin (HGBA1C) 3163.3446 umol/L
[2025-02-16 11:31] LABS: Alanine Aminotransferase 30 U/L (0-40); Albumin Level 4.6 g/dL (3.5-5.0); Alkaline Phosphatase 66 U/L (39-117); Anion Gap 11 (12-20); Aspartate Amino Transferase 37 U/L (5-37); Blood Urea Nitrogen 11 mg/dL (9-16); Calcium 9.6 mg/dL (8.4-10.2); Carbon Dioxide 30 mmol/L (22-29); Chloride 105 mmol/L (96-108); Cholesterol 124 mg/dL (<200); Estimated Glomerular Filt Rate > 60; HDL Cholesterol 35 mg/dL (>40); Potassium 5.1 mmol/L (3.3-5.1); Sodium 141 mmol/L (135-145); Total Protein 7.2 g/dL (6.5-8.0); Triglycerides 150 mg/dL (<150)
[2025-02-16 12:17] LABS: Microalbum/Creatinine Ratio Ur 53.4 ug/mg cr (<30)
== END 2025-02-16 09:30 | disposition home or self-care (01) ==
LOC: HO.LAB 09:29
PROVIDERS: PCP Internal Medicine Medical Oncology; Visit Provider Internal Medicine Medical Oncology
DX: E11.9 Type 2 diabetes mellitus without complications (principal)
CPT/HCPCS: 36415; 80053; 80061; 82043; 82570; 83036; 85025

== ENCOUNTER 2025-02-19 15:02 | Outpatient (AMB) | payer MEDICARE, SELFPAY ==
--- OUTSIDE RECORDS SUMMARY | 2024-05-02 05:30 | XMS_ITS ---
Author Organization Miko Elias III, MD Address [address] [place] [address] [address] [place] [address] Care Team Providers Care Clam Sorter Name Role Phone Dr. Miko Elias III [...] Never (0 point) Points 1 Interpretation Negative Vital Signs Temperature 97.5 degrees Fahrenheit 05/02/20 24 Blood pressure systolic 140 mm Hg 05/02/20 24 Blood pressure diastolic 70 mm Hg 024 Heart Rate 67 /min 05/02/2024 Height 69 in 05/02/2024 Weight 180 lbs 05/02/2024 BMI 26.58 kg/m2 05/02/2024 Encounters Encounter Location Date Provider Diagnosis iMko Elias III, MD [address] [place] [address] [place] [address] 05/02/2024 Miko Elias Simple chronic bronchitis J41.0 [...] Provider Name:Miko Elias , 06/22/2025 09:15:00 AM, [address] [place] [address] [address], [place], [address], Provider Name:Miko Mchugh Elias , 10/18/2025 10:00:00 AM, [address] [place] [address] [address], [place], [address], Progress Notes * Sylvester ROCK EDOB:[birth year] (78 yo M)Acc No.[id number]:05/02/2024 Progress Notes Patient: Sylvester PHOENIX Provider: Fabian Elias MD :1945 A ge:78 Y S ex:Male Date:05/02/2024 Address:[address] [place] [address] , [facility], [id number] Subjective: * Chief Complaints: * B enign [...] N egative Ama mchugh was born in [place] and has been to [place] for 15 years. He has 1 stepson. 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 * Medications: [...] your next appointment,PLEASE FAX COMPLETED RESULTS TO [phone] L ab:Comprehensive [place]. Panel Fast (Order Date - 04/25/2024) (Collection [...] your next appointment,PLEASE FAX COMPLETED RESULTS TO [phone] L ab:Hemoglobin A1c (Order Date - 04/25/2024) [...] your next appointment,PLEASE FAX COMPLETED RESULTS TO [phone] * Examination: G eneral Examination: GENERAL APPEARANCE: [...] true * Provider: Fabian Elias MD Date: 07/03/2023 Generated for Printi ng/Faxing/eTransmitting on: 0 02/19/2025 05:07 PM EDT History and Physical Notes * HPI (History of Present Illness) Category Sub-Category Detail Notes COVID-19 Screening Questions Have you had any new onset fever, chills, cough, congestion, sore throat, shortness of breath, muscle aches?: No Have you been exposed to the virus withi n the last 10 days?: No Have you travelled internationally in doctors' hospital last 10 days?: No Have you [...]
--- OUTSIDE RECORDS SUMMARY | 2024-05-09 05:45 | XMS_ITS ---
Author Organization Miko Elias III, MD Address [address] [place] [address] DR [address] [place] [address] Care Team Providers Care Zanjero Name Role Phone Dr. Miko Elias III Primary Care Provider Allergies Allergen (clinical drug ingredient) Drug/Non Drug Allergy documented on EMR Reaction Allergy Type Onset Date Status oxycodone Oxycodone nausea, Stomach pain Drug Allergy Active dexamethasone Dexamethasone anxiety and insomnia Drug Allergy Active REASON FOR VISIT Follow up Medications Medication SIG (Take, Route, Frequency, Duration) Notes Start Date End Date Status Atorvastatin Calcium 10 MG TAKE 1 TABLET BY MOUTH EVERY DAY Active Gabapentin 300 MG 1 capsule Orally thr ee times a day Active Ciprofloxacin HCl 250 MG 1 tablet Orally every 12 hrs 04/26/2024 Active Tamsulosin HCl 0.4 MG 1 capsule Orally O nce a day 02/14/2024 Active Ketoconazole 2 % APPLY DAILY TO SKIN TO AFFECTED AREA EVERY DAY FOR 30 DAYS Active Adult Aspirin Low Strength 81 MG as directed Orally once a day Active Viagra 100 MG 1 tablet as needed Orally Once a day as directed 10/08/2014 Active Fish Oil 1000 MG 1 capsule with a alexi l Orally Once a day Active Lisinopril 10 MG TAKE 1 TABLET BY JEWELL TH EVERY DAY FOR 30 DAYS Active Lancets - E 11.9 use to check blood sugars once a day - pt to check blood sugar once a day 12/05/2019 Active metFORMIN HCl 500 MG TAKE 2 TABLETS BY M OUTH TWICE A DAY Active Metoprolol Tartrate 100 MG TAKE 1 TABLET BY MOUTH TWICE A DAY WITH FOOD FOR 30 DAYS Active FLUoxetine HCl 20 MG TAKE 1 CAPSULE BY M OUTH EVERY DAY Active Ciprofloxacin HCl 250 MG 1 tablet Orally every 12 hrs for 7 days 05/02/2024 05/09/2024 Active Social History Tobacco Use: Social History Observation Description Date Details (start date - stop date) Former Smoker NA - NA Sex Assigned At : Social History Observation Description Sex Assigned At Male Tobacco Use/Smoking Question Answer Notes Patient is a former smoker How long has it been since you last smoked? > 10 years Additional Findings: Tobacco Non-User Ex-cigaret te smoker Encounters Encounter Location Date Provider Diagnosis Miko Elias III, MD [address] [place] [address] [address] [place] [address] 05/09/2024 Miko Elias Plan Of Treatment Medication Medication Name Sig Start Date Stop Date Notes Atorvastatin Calcium 10 MG TAKE 1 TABLET BY MOUTH EVERY DAY Gabapentin 300 MG 1 capsule Orally thr ee times a day Tamsulosin HCl 0.4 MG 1 capsule Orally Once a day 02/14/20 24 Ketoconazole 2 % APPLY DAILY TO SKIN TO AFFECTED AREA EVERY DAY FOR 30 DAYS Adult Aspirin Low Strength 8 1 MG as directed Orally once a day Viagra 100 MG 1 tablet as needed O rally Once a day as directed 10/08/2014 Fish Oil 1000 MG 1 capsule with a alexi l Orally Once a day Lisinopril 10 MG TAKE 1 TABLET BY JEWELL TH EVERY DAY FOR 30 DAYS Lancfredis - E 11.9 use to check blood sugars once a day - pt to check blood sugar once a day 12/05/2019 metFORMIN HCl 500 MG TAKE 2 TABLETS BY M OUTH TWICE A DAY Metoprolol Tartrate 100 MG TAKE 1 TABLET BY MOUTH TWICE A DAY WITH FOOD FOR 30 DAYS FLUoxetine HCl 20 MG TAKE 1 CAPSULE BY M OUTH EVERY DAY Next Appt Details Provider Name:Miko Elias , 06/22/2025 09:15:00 AM, [address] [facility] [address], [place], [address], Provider Name:Miko Elias , 10/18/2025 10:00:00 AM, [address] [facility] [address], [place], [address], Progress Notes * Sylvester ROCK EDOB:[birth year] (79 yo M)Acc No.[id number]:05/09/2024 Progress Notes Patient: Sylvester PHOENIX Provider: Fabian Elias MD :1945 A ge:78 Y S ex:Male Date:05/09/2024 Address:[address] [place] [address] , [facility], [id number] Subjective: * Chief Complaints: * 1 . Follow up. * HPI: C OVID-19 Screening: Questions H ave you had any new onset fever, chills, cough, congestion, sore throat, shortness of breath, muscle aches? N o * ROS: G eneral/Constitutional: pain o nly normal aches and pains. C hills d enies.?Fatigue a dmits. F ever d enies. E NT: Decreased hearing d enies. R espiratory: Cough d enies. C ardiovascular: Chest pain with exertion d enies. D yspnea on exertion?denies. S hortness of breath d enies. G astrointestinal: Constipation d enies. D ecreased appetite d enies.?Diarrhea d enies. H eartburn d enies. N ausea d enies. R ectal bleeding?denies. V omiting d enies. H ematology: bruising d enies. p etechiae d enies. S wollen glands n one have been noted. G enitourinary: Frequent urination d enies. M usculoskeletal: Muscle aches d enies. P ainful joints d enies. S ciatica d enies. W eakness d enies. S kin: Itching d enies. R vonda d enies. S kin lesion(s)?denies. N eurologic: Difficulty speaking d enies. D izziness d enies.?Headache d enies. L ow back pain d enies. P sychiatric: Depressed mood d enies. * Medical History: D epression, Gout, Hypertension, benign, Cataracts, Sleep apnea, Diabetes mellitus 2006, Allergies, fractured left tibia May 30, 2013, Hypertriglyceridemia, low back pain September 2017, Nephrolithiasis. * Surgical History: l eft knee surgery , fractured left tibia repair May 2013, right kidney stone removal 08/11/2017, tooth extraction 08/2021. * Hospitalization/Major Diagno stic Procedure: c hest pain 08/2018, fall with facial laceration and sutures 07/2023. * Family History: F ather: 25 yrs, [...] dditional Findings: Tobacco Non-User E x-cigarette smoker H e was born in [place] and has been to [place] for 15 years. He has 1 stepson. 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 * Medications: T aking Ciprofloxacin HCl 250 MG Tablet 1 tablet Orally every 12 hrs , Taking FLUoxetine HCl 20 MG Capsule TAKE 1 CAPSULE BY MOUTH EVERY DAY , Taking Metoprolol Tartrate 100 MG Tablet TAKE 1 TABLET BY MOUTH TWICE A DAY WITH FOOD FOR 30 DAYS , Taking metFORMIN HCl 500 MG Tablet TAKE 2 TABLETS BY MOUTH TWICE A DAY , Taking Adult Aspirin Low Strength 81 MG Tablet Dispersible as directed Orally once a day , Taking Fish Oil 1000 MG Capsule 1 capsule with a meal Orally Once a day , Taking Viagra 100 MG Tablet 1 tablet as needed Orally Once a day as directed , Taking Lancets - Miscellaneous E 11.9 use to check blood sugars once a day - pt to check blood sugar once a day , Taking Lisinopril 10 MG Tablet TAKE 1 TABLET BY MOUTH EVERY DAY FOR 30 DAYS , Taking Gabapentin 300 MG Capsule 1 capsule Orally three times a day , Taking Atorvastatin Calcium 10 MG Tablet TAKE 1 TABLET BY MOUTH EVERY DAY , Taking Ketoconazole 2 % Cream APPLY DAILY TO SKIN TO AFFECTED AREA EVERY DAY FOR 30 DAYS , Taking Tamsulosin HCl 0.4 MG Capsule 1 capsule Orally Once a day , Taking Ciprofloxacin HCl 250 MG Tablet 1 tablet Orally every 12 hrs , stop date 05/09/2024, Medication List reviewed and reconciled with the patient * Allergies: D examethasone: anxiety and insomnia, Oxycodone: nausea, Stomach pain. Objective: * Vitals: * Examination: G eneral Examination: GENERAL APPEARANCE: p leasant, well nourished, well developed, in no acute distress, calm and relaxed. HEAD: a traumatic, normocephalic. EYES: e soni, [...] normal, no s3, or vascular bruits. LUNGS: c lear to auscultation . BREASTS: no masses palpable bilaterally. ABDOMEN: b owel sounds normal, no ascites, no organomegaly, no mass. RECTAL EXAM: n ot examined. MUSCULOSKELETAL: e xtremities unremarkable, no clubbing, cyanosis or edema. PERIPHERAL PULSES: n ormal. NEUROLOGIC: a lert and oriented, cranial nerves 2-12 grossly intact, deep tendon reflexes 2+ symmetrical, motor strength normal upper and lower extremities, sensory exam intact. PSYCH: a lert, oriented. Assessment: Plan: * Treatment: * Images: * The named appointment provid er may or may not be the originator of this progress note, and it is not deemed complete until electronically signed by the appointment provider. Sign off status: Pending * Provider: Fabian Elias MD Date: 1 07/10/2023 Generated for Jamini marcie/Stella/Bekahitting on: 0 02/19/2025 05:06 PM EDT History and Physical Notes * HPI (History of Present Illness) Category Sub-Category Detail Notes COVID-19 Screening Questions Have you had any new onset fever, chills, cough, congestion, sore throat, shortness of breath, muscle aches?: No Examination Category Sub-Category Detail Notes General Examination GENERAL APPEARANCE: pleasant , well nourished, well developed, in no acute distress, calm and relaxed HEAD: atraumatic, normocep halic EYES: eomi, perrla, anicte natasha, conjugate EARS: normal NOSE: septum intact NECK/THYROID: no jugular venous di stention, no carotid bruit, thyroid normal HEART: no clicks, gallops, murmurs, or rubs, regular rhythm, S1, S2 normal, no s3, or vascular bruits LUNGS: clear to auscultatio n ABDOMEN: bowel sounds normal, no ascites, no organomegaly, no mass NEUROLOGIC: alert and oriented, cranial nerves 2-12 grossly intact, deep tendon reflexes 2+ symmetrical, motor strength normal upper and lower extremities, sensory exam intact SKIN: no suspicious lesion s, anicteric PERIPHERAL PULSES: normal BREASTS: no masses palpable b ilaterally MUSCULOSKELETAL: extremities unremark able, no clubbing, cyanosis or edema LYMPH NODES: no enlarged lymph no joel,spleen normal RECTAL EXAM: not examined PSYCH: alert, oriented ORAL CAVITY: normal, unremarkable
--- OUTSIDE RECORDS SUMMARY | 2024-10-02 11:38 | XMS_ITS ---
Author Organization Miko Elias III, MD Address [address] [place] [address] [place] [address] Care Team Providers Care Fire Equipment Inspector Name Role Phone Dr. Miko Elias III Primary Care Provider REASON FOR VISIT lab order request Social History Sex Assigned At : Social History Observation Description Sex Assigned At Male Encounters Encounter Location Date Provider Diagnosis Miko Elias III, MD [address] [place] [address] [place] [address] 10/02/2024 Miko Elias Hypertriglyceridemia E78.1 ; Diabetes [...] Name:Miko Elias , 06/22/2025 09:15:00 AM, [address] [facility] [address], [place], [address], Provider Name:Miko Elias , 10/18/2025 10:00:00 AM, [address] [place] [address] [address], [place], [address], Progress Notes * Sylvester ROCK EDOB:[birth year] (79 yo M)Acc No.[id number]:10/02/2024 Patient: Sylvester PHOEN[place] :1945 A ge:79 Y S ex:Male Address:[address] [place] [address] , [place] [address] Subjective: * Chief Complaints: * L ab [...] Date: Generated for Lindsay jack/Stella/eTransmitting on: 0 02/19/2025 05:07 PM EDT
--- OUTSIDE RECORDS SUMMARY | 2024-10-17 06:00 | XMS_ITS ---
Author Organization Miko Elias III, MD Address [address] [place] [address] [place] [address] Care Team Providers Care Laserist Name Role Phone Dr. Miko Elias III Primary Care Provider [phone] Allergies Allergen (clinical drug ingredient) Drug/Non Drug [...] Provider Speciality Internal M edicine Referred Provider [facility] er, Orthopedic Surgeons Referred Provider [...] Date Provider Diagnosis Miko Elias III, MD [address] [place] [address] [place] [address] 10/17/2024 Miko Elias Diabetes mellitus E1 1.9 [...] Treat Shoulder Pain Questioning Injections, Orthopedic Surgeons [facility] Next Appt Details Follow Up: 4 Months, Reason: OV Provider Name:Miko Elias , 06/22/2025 09:15:00 AM, [address] [place] [address] [address], [place], [phone], Provider Name:Miko Elias , 10/18/2025 10:00:00 AM, [address] [place] [address] [place], [address], Progress Notes * Sylvester ROCK EDOB:[birth year] (79 yo M)Acc No.[id number]:10/17/2024 Progress Notes Patient: W ALLIS, Sylvester E Provider: Fabian Elias MD :1945 A ge:79 Y S ex:Male Date:10/17/2024 Address:[address] [place] [address] , [place], [id number] Subjective: * Chief Complaints: * A nnual [...] N egative Ama mchugh was born in [place] and has been to [place] for 15 years. He has 1 stepson. 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 * Medications: [...] your next appointment,PLEASE FAX COMPLETED RESULTS TO [phone] * Lab:Lipid Panel * Collection Date 10/13/2024 [...] your next appointment,PLEASE FAX COMPLETED RESULTS TO [phone] * Lab:Complete Blood Count Aut o Diff [...] your next appointment,PLEASE FAX COMPLETED RESULTS TO [phone] * Lab:Comprehensive [place]. Litoe l Fast * Collection Date 10/13/2024 [...] - 10/13/2024 10:27 AM)?ValueReference Range?B Type Natriuretic [id number]<100 - pg/mL * Lab:URINE DIP STICK * [...] every 12 hrs. ? Referral To:Orthopedic Surgeons [facility] Orthopedic Surgery Reason:Evaluate and Treat Shoulder Pain [...] 10/17/2024 Generated for Lindsay jack/Stella/Bekahitting on: 0 02/19/2025 05:06 PM EDT History [...] Provider Referred Provider Not marine 10/17/2024 Jada [facility], Orthopedic Surgeons Evaluate and Treat Shoulder Pain Questioning Injections
--- OUTSIDE RECORDS SUMMARY | 2025-02-16 05:00 | XMS_ITS ---
Author Organization Miko Elias III, MD Address [address] [place] [address] DR [place]A [place] [address] Care Team Providers Care [employer] Supervisor Name Role Phone Dr. Miko Elias III Primary Care Provider [phone] Allergies Allergen (clinical drug ingredient) Drug/Non Drug Allergy documented on EMR Reaction Allergy Type Onset Date Status oxycodone Oxycodone nausea, Stomach pain Drug Allergy Active No Known Food Allergy Unknown Drug Allergy Active dexamethasone Dexamethasone anxiety and insomnia Drug Allergy Active Results Component Value Reference Range Notes Lipid Panel Reviewed date:02/17/2025 06:09:23 AM Interpretation: Performing Lab:[facility], [address] [place] [phone] Notes/Report: Triglycerides 150 <150 mg/dL Desirable Triglyceride: less than 150 mg/dL Borderline High Triglyceride 150-199 mg/dL High Triglyceride: 200-499 mg/dL Very High Triglyceride: greater than or equal to 5OO mg/dL Cholesterol 124 <200 mg/dL Desirable Cholesterol: less than 200 mg/dL Borderline High Cholesterol: 200-239 mg/dL High Cholesterol: greater than 239 mg/dL LDL Cholesterol Calculated 59 <100 mg/dL Desirable LDL: less than 100 mg/dL Near Optimal/Above Optimal LDL: 110-129 mg/dL Borderline High LDL: 130-159 mg/dL High LDL: 160-189 mg/dL Very High LDL: greater than or equal to 190 mg/dL HDL Cholesterol 35 >40 mg/dL Desirable HDL: greater than 40 mg/dL Note: This HDL assay may give artificially low results in patients with liver disease. Hemoglobin A1c Reviewed date:02/17/2025 06:09:23 AM Interpretation: Performing Lab:[facility], [address] [place] [phone] Notes/Report: Hemoglobin A1c % 7.5 <6.0 % Hemoglobin A1C Reference Range Adults: 4.8 - 6.0 % Non diabetic: < 6.0 % Goal: < 7.0 % Additional Action Suggested: > 8.0 % Note: Hemoglobin A1c results are invalid for patients with abnormal amounts of HbF. Blood transfusions may impact the HbA1c concentration in the patient sample. Estimated Average Glucose 169 eAG = Estimated average glucose which is %A1C expressed as average glucose, using the formula of the A1R-Iabqyew Average Glucose study (ADAG), Diabetes Care, Vol.31,#8, Dec. 2007 REASON FOR VISIT Diabetes, Hypertension, gout, Allergies, Hyperlipidemia, Benign prosthetic hypertrophy, Cardiomyopathy Medications Medication SIG (Take, Route, Frequency, Duration) [...] has it been since you last smoked? Yumkio ter than 10 years Additional Findings: Tobacco non-user Ex-cigaret te smoker Problems Problem Type SNOMED Code ICD Code Onset Dates Problem Status W/U Status Risk Notes Problem [id number] Pulmonary nodule, left (R91.1) Active confirmed A chest CT scan in October 2024 showed a stable left upper lobe irregularly-s haped nodule slightly smaller than on previous studies. He is followed by Dr. Mooney of the pulmonary department who saw him in December of this year and will repeat the CT scan after 12 months. His cough is improved. Vital Signs Blood pressure systolic 115 mm Hg 02/17/20 25 Blood pressure diastolic 65 mm Hg 025 Heart Rate 63 /min 02/16/2025 Height 69 in 02/16/2025 Weight 187 lbs 02/16/2025 BMI 27.61 kg/m2 02/16/2025 Oximetry 97 % 02/16/2025 Encounters Encounter Location Date Provider Diagnosis Miko Elias III, MD [address] [place] [address] [place] [address] 02/16/2025 Miko Elias Cardiomyopathy, unspecified type I42.9 ; Overweight E66.3 ; Former smoker Z87.891 ; Environmental allergies Z91.09 ; Gout M10.9 ; BPH (benign prostatic hypertrophy) N40.0 ; Pulmonary nodule, left R91.1 and Diabetes mellitus E11.9 Assessments Encounter Date Diagnosis (ICD Code) Assessment Notes Treat ment Notes Treatment Clinical Notes 02/16/2025 Cardiomyopathy, unspecified type (ICD-10 - I42.9) His cardiomyopathy is well compensated and he is not short of breath with the routine activities of daily living. 02/16/2025 Overweight (ICD-10 - E66.3) He is overweight but lost 2 pounds. We discussed his diet and nutrition. We made plans to lose weight at a rate of one half of a pound per week. 02/16/2025 Former smoker (ICD-10 - Z87.891) He is highly motivated not to smoke and we have discussed strategies for maintenance of abstinence. 02/16/2025 Environmental allergies (ICD-10 - Z91.09) He reports an increase in his allergic symptoms recently. We reviewed and adjusted. His allergy regimen. 02/16/2025 Gout (ICD-10 - M10.9) A uric acid level will be checked in the future. He has had no recent attacks of gout. 02/16/2025 BPH (benign prostatic hypertrophy) (ICD-10 - N40.0) He will be continued on the tamsulosin. The urine culture showed no infection. 02/16/2025 Pulmonary nodule, left (ICD-10 - R91.1) A chest CT scan in October 2024 showed a stable left upper lobe irregularly-shaped nodule slightly smaller than on previous studies. He is followed by Dr. Mooney of the pulmonary department who saw him in December of this year and will repeat the CT scan after 12 months. His cough is improved. 02/16/2025 Diabetes mellitus (ICD-10 - E11.9) The hemoglobin A1c has increased to 7.5. He has gained 2 pounds. We recommended additional weight loss but made no change in his regimen.He well continue as is and attempt to lose weight steadily.A repeat value was ordered in the near future. He was encouraged to follow a weight loss diabetic diet. Plan Of Treatment Medication Medication Name Sig [...] METABOLI C) 02/16/2025 CBC w DIFF 02/16/2025 Next Appt Details Follow Up: 4 Months, Reason: OV Provider Name:Miko Elias , 06/22/2025 09:15:00 AM, [address] [facility] [address], [place], [phone], Provider Name:Miko Elias , 10/18/2025 10:00:00 AM, [address] [facility] [place], [address], Progress Notes * Sylvester ROCK EDOB:[birth year] (79 yo M)Acc No.[id number]:02/16/2025 Progress Notes Patient: Sylvester PHOENIX Provider: Fabian Elias MD :1945 A ge:79 Y S ex:Male Date:02/16/2025 Address:[address] [place] [address] , [facility], [id number] Subjective: * Chief Complaints: * D iabetesHypertensionGoutAllergiesHyperlipidemiaBenign prosthetic hypertrophyCardiomyopathy * HPI: C OVID-19 Screening: He returns for ongoing medical management. Since his last visit he has not had any gout or kidney stones or renal colic. He continues to have pain with use of the right shoulder and is scheduled for a cortisone injection next week. His health has been stable since his last visit.? He has no increase in shortness of breath with exertion or peripheral edema. His vital signs were stable today. He has been compliant with all of his medications. No change in his regimen was needed today.A CT scan of the chest November 17, 2024 showed a groundglass opacity in the left upper lobe. Repeat CT scan will be done in the near future. Questions H ave you had any new onset fever, chills, cough, congestion, sore throat, shortness of breath, muscle aches? N o * ROS: G eneral/Constitutional: pain o nly normal aches and pains. C hills d enies.?Fatigue a dmits. F ever d enies. E NT: Decreased hearing d enies. R espiratory: Cough I mproved. C ardiovascular: Chest pain with exertion d enies. D yspnea on exertion?with prolonged activity. S hortness of breath t hat is mild. G astrointestinal: Constipation o ccasional. D ecreased [...] x-cigarette smoker Ama mchugh was born in [place] and has been to [place] for 15 years. He has 1 stepson. 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 * Medications: T akingTamsulosin HCl 0.4 MG Capsule 1 capsule Orally Once a day metFORMIN HCl 500 MG Tablet TAKE 2 TABLETS BY MOUTH TWICE A DAY Metoprolol Tartrate 100 MG Tablet TAKE 1 TABLET BY MOUTH TWICE A DAY WITH FOOD Lisinopril 10 MG Tablet TAKE 1 TABLET BY MOUTH EVERY DAY FOR 30 DAYS FLUoxetine HCl 20 MG Capsule TAKE 1 CAPSULE BY MOUTH EVERY DAY Adult Aspirin Low Strength 81 MG Tablet Dispersible as directed Orally once a day Fish Oil 1000 MG Capsule 1 capsule with a meal Orally Once a day Viagra 100 MG Tablet 1 tablet as needed Orally Once a day as directed Lancets - U4EA Wirelesscellaneous E 11.9 use to check blood sugars once a day - pt to check blood sugar once a day Gabapentin 300 MG Capsule 1 capsule Orally three times a day Ketoconazole 2 % Cream APPLY DAILY TO SKIN TO AFFECTED AREA EVERY DAY FOR 30 DAYS Ciprofloxacin HCl 250 MG Tablet 1 tablet Orally every 12 hrs Atorvastatin Calcium 10 MG Tablet 1 tablet Orally Once a day Medication List reviewed and reconciled with the patientTaking Tamsulosin HCl 0.4 MG Capsule 1 capsule Orally Once a day Taking metFORMIN HCl 500 MG Tablet TAKE 2 TABLETS BY MOUTH TWICE A DAY Taking Metoprolol Tartrate 100 MG Tablet TAKE 1 TABLET BY MOUTH TWICE A DAY WITH FOOD Taking Lisinopril 10 MG Tablet TAKE 1 TABLET BY MOUTH EVERY DAY FOR 30 DAYS Taking FLUoxetine HCl 20 MG Capsule TAKE 1 CAPSULE BY MOUTH EVERY DAY Taking Adult Aspirin Low Strength 81 MG Tablet Dispersible as directed Orally once a day Taking Fish Oil 1000 MG Capsule 1 capsule with a meal Orally Once a day Taking Viagra 100 MG Tablet 1 tablet as needed Orally Once a day as directed Taking Lancets - U4EA Wirelesscellaneous E 11.9 use to check blood sugars once a day - pt to check blood sugar once a day Taking Gabapentin 300 MG Capsule 1 capsule Orally three times a day Taking Ketoconazole 2 % Cream APPLY DAILY TO SKIN TO AFFECTED AREA EVERY DAY FOR 30 DAYS Taking Ciprofloxacin HCl 250 MG Tablet 1 tablet Orally every 12 hrs Taking Atorvastatin Calcium 10 MG Tablet 1 tablet Orally Once a day Medication List reviewed and reconciled with the patient * Allergies: D examethasone: anxiety and insomniaOxycodone: nausea, Stomach painNo Known Food Allergyno[Allergies Verified] Objective: * Vitals: H t: 69, Wt:187, BMI:27.61, BP:115/65, HR:63, Oxygen sat %:97, Wt-k.82. * P ast Orders: Lab:Complete Blood Count Aut o Diff * Collection Date 02/16/2025 10/13/2024 04/25/2024 Collection Time 09:45 AM 10:27 AM 10:43 AM Order Date 02/16/2025 10/13/2024 04/25/2024 White Blood Count 9.3 (Ref Range: 4.8-10.8 X10*3/uL) 7.9 (Ref Range: 4.8-10.8 X10*3/uL) 8.6 (Ref Range: 4.8-10.8 X10*3/uL) Red Blood Count 3.80 L (Ref Range: 4.60-5.80 X10*6/uL) 3.95 L (Ref Range: 4.60-5.80 X10*6/uL) 3.93 L (Ref Range: 4.60-5.80 X10*6/uL) Hemoglobin 12.3 L (Ref Range: 14.0-18.0 g/dl) 12.6 L (Ref Range: 14.0-18.0 g/dl) 12.4 L (Ref Range: 14.0-18.0 g/dl) Hematocrit 36.4 L (Ref Range: 42.0-52.0 %) 37.6 L (Ref Range: 42.0-52.0 %) 36.5 L (Ref Range: 42.0-52.0 %) Mean Corpuscular Volume 95.8 (Ref Range: 80.0-98.0 fL) 95.2 (Ref Range: 80.0-98.0 fL) 92.9 (Ref Range: 80.0-98.0 fL) Mean Corpuscular Hemoglobin 32.4 (Ref Range: 27.0-33.0 pg) 31.9 (Ref Range: 27.0-33.0 pg) 31.6 (Ref Range: 27.0-33.0 pg) Mean Corpuscular HGB Conc 33.8 (Ref Range: 31.0-36.0 g/dl) 33.5 (Ref Range: 31.0-36.0 g/dl) 34.0 (Ref Range: 31.0-36.0 g/dl) Red Cell Distribution Width 15.0 (Ref Range: 11.0-16.0 %) 14.6 (Ref Range: 11.0-16.0 %) 14.6 (Ref Range: 11.0-16.0 %) Platelet Count 226 (Ref Range: 160-400 X10*3/uL) 218 (Ref Range: 160-400 X10*3/uL) 218 (Ref Range: 160-400 X10*3/uL) Mean Platelet Volume 11.4 (Ref Range: 9.4-12.4 fL) 11.6 (Ref Range: 9.4-12.4 fL) 10.6 (Ref Range: 9.4-12.4 fL) Neutrophils Percent Auto 54.4 (Ref Range: 45-73 %) 55.7 (Ref Range: 45-73 %) 52.4 (Ref Range: 45-73 %) Imm Gran Pct Auto 0.8 H (Ref Range: 0.0-0.4 %) 0.5 H (Ref Range: 0.0-0.4 %) 0.5 H (Ref Range: 0.0-0.4 %) Lymphocytes Percent Auto 28.1 (Ref Range: 20-40 %) 32.3 (Ref Range: 20-40 %) 31.6 (Ref Range: 20-40 %) Monocytes Percent Auto 12.1 H (Ref Range: 2-11 %) 8.3 (Ref Range: 2-11 %) 9.6 (Ref Range: 2-11 %) Eosinophils Percent Auto 3.6 (Ref Range: 0-4 %) 2.1 (Ref Range: 0-4 %) 4.7 H (Ref Range: 0-4 %) Basophils Percent Auto 1.0 (Ref Range: 0-2 %) 1.1 (Ref Range: 0-2 %) 1.2 (Ref Range: 0-2 %) NRBC Pct Auto 0.2 (Ref Range: 0.0-0.2 /100WBC) 0.0 (Ref Range: 0.0-0.2 /100WBC) 0.0 (Ref Range: 0.0-0.2 /100WBC) Neutrophils Absolute Auto 5.0 (Ref Range: 2.0-8.3 x10*3/uL) 4.4 (Ref Range: 2.0-8.3 x10*3/uL) 4.5 (Ref Range: 2.0-8.3 x10*3/uL) Imm Gran Abs Auto 0.07 H (Ref Range: 0.00-0.03 X10*3/uL) 0.04 H (Ref Range: 0.00-0.03 X10*3/uL) 0.04 H (Ref Range: 0.00-0.03 X10*3/uL) Lymphocytes Absolute Auto 2.6 (Ref Range: 1.2-4.9 X10*3/uL) 2.6 (Ref Range: 1.2-4.9 X10*3/uL) 2.7 (Ref Range: 1.2-4.9 X10*3/uL) Monocytes Absolute Auto 1.1 (Ref Range: 0.1-1.2 X10*3/uL) 0.7 (Ref Range: 0.1-1.2 X10*3/uL) 0.8 (Ref Range: 0.1-1.2 X10*3/uL) Eosinophils Absolute Auto 0.3 (Ref Range: 0.0-0.4 X10*3/uL) 0.2 (Ref Range: 0.0-0.4 X10*3/uL) 0.4 (Ref Range: 0.0-0.4 X10*3/uL) Basophils Absolute Auto 0.1 (Ref Range: 0.0-0.2 X10*3/uL) 0.1 (Ref Range: 0.0-0.2 X10*3/uL) 0.1 (Ref Range: 0.0-0.2 X10*3/uL) NRBC Abs Auto 0.020 H (Ref Range: 0.0-0.012 X10*3/uL) 0.000 (Ref Range: 0.0-0.012 X10*3/uL) 0.000 (Ref Range: 0.0-0.012 X10*3/uL) * Lab:[facility] * Collection Date 02/16/2025 10/13/2024 04/25/2024 Collection Time 09:45 AM 10:27 AM 10:43 AM Order Date 02/16/2025 10/13/2024 04/25/2024 Sodium 141 (Ref Range: 135-145 mmol/L) 135 (Ref Range: 135-145 mmol/L) 138 (Ref Range: 135-145 mmol/L) Bilirubin Total 1.1 H (Ref Range: 0.0-1.0 mg/dL) 1.2 H (Ref Range: 0.0-1.0 mg/dL) 0.9 (Ref Range: 0.0-1.0 mg/dL) Aspartate Amino Transferase 37 (Ref Range: 5-37 U/L) 25 (Ref Range: 5-37 U/L) 38 H (Ref Range: 5-37 U/L) Alanine Aminotransferase 30 (Ref Range: 0-40 U/L) 20 (Ref Range: 0-40 U/L) 12 (Ref Range: 0-40 U/L) Total Protein 7.2 (Ref Range: 6.5-8.0 g/dL) 7.4 (Ref Range: 6.5-8.0 g/dL) 7.0 (Ref Range: 6.5-8.0 g/dL) Albumin Level 4.6 (Ref Range: 3.5-5.0 g/dL) 4.6 (Ref Range: 3.5-5.0 g/dL) 4.3 (Ref Range: 3.5-5.0 g/dL) Alkaline Phosphatase 66 (Ref Range: 39-117 U/L) 65 (Ref Range: 39-117 U/L) 58 (Ref Range: 39-117 U/L) Potassium 5.1 (Ref Range: 3.3-5.1 mmol/L) 5.0 (Ref Range: 3.3-5.1 mmol/L) 4.8 (Ref Range: 3.3-5.1 mmol/L) Chloride 105 (Ref Range: 96-108 mmol/L) 104 (Ref Range: 96-108 mmol/L) 103 (Ref Range: 96-108 mmol/L) Carbon Dioxide 30 H (Ref Range: 22-29 mmol/L) 24 (Ref Range: 22-29 mmol/L) 28 (Ref Range: 22-29 mmol/L) Anion Gap 11 L (Ref Range: 12-20) 12 (Ref Range: 12-20) 12 (Ref Range: 12-20) Blood Urea Nitrogen 11 (Ref Range: 9-16 mg/dL) 23 H (Ref Range: 9-16 mg/dL) 17 H (Ref Range: 9-16 mg/dL) Creatinine 1.02 (Ref Range: 0.5-1.4 mg/dL) 1.30 (Ref Range: 0.5-1.4 mg/dL) 1.09 (Ref Range: 0.5-1.4 mg/dL) Estimated Glomerular Filt Rate > 60 53 > 60 Glucose Fasting 148 H (Ref Range: 60-99 mg/dL) 136 H (Ref Range: 60-99 mg/dL) 119 H (Ref Range: 60-99 mg/dL) Calcium 9.6 (Ref Range: 8.4-10.2 mg/dL) 9.7 (Ref Range: 8.4-10.2 mg/dL) 9.6 (Ref Range: 8.4-10.2 mg/dL) * Lab:Microalbumin, Random * Collection Date 02/16/2025 10/13/2024 04/25/2024 Collection Time 09:38 AM 10:20 AM 10:38 AM Order Date 02/16/2025 10/13/2024 04/25/2024 Creatinine Urine 200.23 (Ref Range: mg/dL) 82.66 (Ref Range: mg/dL) 168.08 (Ref Range: mg/dL) Microalbumin Urine 107.0 (Ref Range: mg/L) 8.0 (Ref Range: mg/L) 30.0 (Ref Range: mg/L) Microalbum Creatinine Ratio Ur 53.4 H (Ref Range: <30 ug/mg cr) 9.6 (Ref Range: <30 ug/mg cr) 17.8 (Ref Range: <30 ug/mg cr) Clinical Info: Please fast f or 12-14 hours prior to having this labwork done. You may have black coffee or tea with no milk or sugar. May have water,Please have this testing 1 week prior to your next appointment,PLEASE FAX COMPLETED RESULTS TO [phone] * Lab:Lipid Panel * Collection Date 02/16/2025 10/13/2024 04/25/2024 Collection Time 09:45 AM 10:27 AM 10:43 AM Order Date 02/16/2025 10/13/2024 04/25/2024 Triglycerides 150 H (Ref Range: <150 mg/dL) 122 (Ref Range: <150 mg/dL) 183 H (Ref Range: <150 mg/dL) Cholesterol 124 (Ref Range: <200 mg/dL) 92 (Ref Range: <200 mg/dL) 120 (Ref Range: <200 mg/dL) LDL Cholesterol Calculated 59 (Ref Range: <100 mg/dL) 35 (Ref Range: <100 mg/dL) 49 (Ref Range: <100 mg/dL) HDL Cholesterol 35 L (Ref Range: >40 mg/dL) 33 L (Ref Range: >40 mg/dL) 35 L (Ref Range: >40 mg/dL) Clinical Info: Please fast for 12-1 4 hours prior to having this labwork done. You may have black coffee or tea with no milk or sugar. May have water,Please have this testing 1 week prior to your next appointment,PLEASE FAX COMPLETED RESULTS TO [phone] Please fast for 12-14 hours prior to having this labwork done. You may have black coffee or tea with no milk or sugar. May have water,Please have this testing 1 week prior to your next appointment,PLEASE FAX COMPLETED RESULTS TO [phone] * Lab:Hemoglobin A1c * Collection Date 02/16/2025 10/13/2024 04/25/2024 Collection Time 09:45 AM 10:27 AM 10:43 AM Order Date 02/16/2025 10/13/2024 04/25/2024 Hemoglobin A1c % 7.5 H (Ref Range: <6.0 %) 6.7 H (Ref Range: <6.0 %) 6.7 H (Ref Range: <6.0 %) Estimated Average Glucose 169 (Ref Range: mg/dL) 146 (Ref Range: mg/dL) 146 (Ref Range: mg/dL) Clinical Info: Please fast for 12-1 4 hours prior to having this labwork done. You may have black coffee or tea with no milk or sugar. May have water,Please have this testing 1 week prior to your next appointment,PLEASE FAX COMPLETED RESULTS TO [phone] Please fast for 12-14 hours prior to having this labwork done. You may have black coffee or tea with no milk or sugar. May have water,Please have this testing 1 week prior to your next appointment,PLEASE FAX COMPLETED RESULTS TO [phone] * Imaging:CT chest wo con * Performed Date 11/17/2024 07/03/2024 07:59 AM 08:35 AM Order Date 11/17/2024 07/03/2024 * Examination: G eneral Examination: GENERAL APPEARANCE: p leasant, well nourished, well developed, in no acute distress, calm and relaxed: overweight: elderly man: . HEAD: a traumatic, normocephalic. EYES: e soni, [...] sounds normal, no ascites, no organomegaly, no mass: overweight. RECTAL EXAM: n ot examined. MUSCULOSKELETAL: e xtremities unremarkable, no clubbing, cyanosis or edema, Diminished range of motion lumbar spine. PERIPHERAL PULSES: n ormal. NEUROLOGIC: a lert and oriented, cranial nerves 2-12 grossly intact, deep tendon reflexes 2+ symmetrical, motor strength normal upper and lower extremities, sensory exam intact. PSYCH: a lert, oriented. Assessment: * Assessment: 1. C ardiomyopathy, unspecified type - I42.9 (Primary) N otes :His cardiomyopathy is well compensated and he is not short of breath with the routine activities of daily living. 2 . O verweight - E66.3 N otes :He is overweight but lost 2 pounds. W e discussed his diet and nutrition. We made plans to lose weight at a rate of one half of a pound per week. 3 . F ormer smoker - Z87.891 N otes :He is highly motivated not to smoke and we have discussed strategies for maintenance of abstinence. 4 . E nvironmental allergies - Z91.09 N otes :He reports an increase in his allergic symptoms recently. We reviewed and adjusted. His allergy regimen. 5 . G out - M10.9 N otes :A uric acid level will be checked in the future. He has had no recent attacks of gout. 6 . B PH (benign prostatic hypertrophy) - N40.0 N otes :He will be continued on the tamsulosin. The urine culture showed no infection. 7 . P ulmonary nodule, left - R91.1 N otes :A chest CT scan in October 2024 showed a stable left upper lobe irregularly- shaped nodule slightly smaller than on previous studies. He is followed by Dr. Mooney of the pulmonary department who saw him in December of this year and will repeat the CT scan after 12 months. His cough is improved. 8 . D iabetes mellitus - E11.9 N otes :The hemoglobin A1c has increased to 7.5. He has gained 2 pounds. We recommended additional weight loss but made no change in his regimen.He well continue as is and attempt to lose weight steadily.A repeat value was ordered in the near future. He was encouraged to follow a weight loss diabetic diet. Plan: * Treatment: * Labs: * L ab: PROFILE, FASTING (COMPREHENSIVE METABOLIC) L ab: CBC w DIFF L ab: Lipid Panel (Collection Date & Time - 02/16/2025 09:45 AM) Value Reference Range T riglycerides 150 H <150 - mg/dL * C holesterol 124 <200 - mg/dL * L DL Cholesterol Calculated 59 <100 - mg/dL * H DL Cholesterol 35 L >40 - mg/dL ?Lab: Hemoglobin A1c (Collection Date & Time - 02/16/2025 09:45 AM)* Value Reference Range H emoglobin A1c % 7.5 H <6.0 - % * E stimated Average Glucose 169 - mg/dL * Procedure Codes: 9 4760 MEASURE BLOOD OXYGEN LEVEL * Preventive Medicine: Counseling: C are goal follow-up plan: Counseling for abnormal BMI given Y es Above Normal BMI Follow-up D ietary management education, guidance, and counseling S moking/Tobacco Use Patient counseled on the dangers of tobacco use and urged to quit. 0 02/16/2025 * Follow Up: 4 Months (Reason: OV) * Images: * Sign off status: Completed true * Provider: Fabian Elias MD Date: 0 02/16/2025 Generated for Lindsay jack/Stella/eTransmitting on: 0 02/19/2025 05:07 PM EDT History and Physical Notes * HPI (History of Present Illness) Category Sub-Category Detail Notes COVID-19 Screening Questions Have you had any new onset fever, chills, cough, congestion, sore throat, shortness of breath, muscle aches?: No Examination Category Sub-Category Detail Notes General Examination GENERAL APPEARANCE: pleasant , well nourished, well developed, in no acute distress, calm and relaxed: overweight: elderly man: HEAD: atraumatic, normocep halic EYES: eomi, perrla, anicte natasha, conjugate EARS: normal NOSE: septum intact NECK/THYROID: no jugular venous di stention, no carotid bruit, thyroid normal HEART: no clicks, gallops, murmurs, or rubs, regular rhythm, S1, S2 normal, no s3, or vascular bruits LUNGS: clear to auscultatio n ABDOMEN: bowel sounds normal, no ascites, no organomegaly, no mass: overweight NEUROLOGIC: alert and oriented, cranial nerves 2-12 grossly intact, deep tendon reflexes 2+ symmetrical, motor strength normal upper and lower extremities, sensory exam intact SKIN: no suspicious lesion s, anicteric PERIPHERAL PULSES: normal BREASTS: no masses palpable b ilaterally MUSCULOSKELETAL: extremities unremark able, no clubbing, cyanosis or edema, Diminished range of motion lumbar spine LYMPH NODES: no enlarged lymph no joel,spleen normal RECTAL EXAM: not examined PSYCH: alert, oriented ORAL CAVITY: normal, unremarkable
[2025-02-19 15:28] VITALS: BMI 27.5
--- NOTE | 2025-02-19 15:28 | MHC.OFFVIS ---
Vital Signs 02/19/25 15:28 Height 5 ft 9 in Weight 186 lb BMI 27.5 Intake Visit Reasons: INJ-Right Shoulder Injection Intake Note: Sylvester is an 79 year old right hand dominant male who presents today for follow up of his Bilateral Shoulder Osteoarthritis. He was last seen on 01/11/25 where a Left Shoulder Injection was administered. Patient would like to proceed with his Right Shoulder Injection today. Allergies No Known Allergies Allergy (Verified 02/19/25 15:28) HPI HPI INJ-Right Shoulder Injection: Details: Sylvester is an 79 year old right hand dominant male who presents today for follow up of his Bilateral Shoulder Osteoarthritis. He was last seen on 01/11/25 where a Left Shoulder Injection was administered. Patient would like to proceed with his Right Shoulder Injection today. [facility] Surgical History (Updated 01/11/25 @ 13:17 by FILIPPO Willis) History of ankle surgery History of left knee surgery Social History (Updated 01/11/25 @ 13:16 by FILIPPO Willis) Patient Tobacco Use Status: Former Tobacco user Tobacco use type: Cigarette Years Smoked: 40 Current occupational status: retired Current occupation: rt handed Physical Exam Vital Signs: BMI result Body Mass Index 27.5 Office Procedures Joint Inj/Aspir; Non-Pain Clin Joint Injection/Drain Prep: site was prepped using aseptic technique and injection warnings given Procedure: The patient tolerated the procedure well and there was some relief with the local anesthesia Shoulders, Hips, Knees, Shoulder Injection Large joint [id number]: Right Shoulder Coding Procedure code (CPT) selection complete Assessment & Plan Assessment & Plan (1) Osteoarthritis of shoulders, bilateral: Code(s): M19.011 - Primary osteoarthritis, right shoulder; M19.012 - Primary osteoarthritis, left shoulder Category: Medical Plan 1. Osteoarthritis of bilateral shoulders Patient is educated about this condition Patient is educated about the treatment options available Patient would like to proceed with steroid injection in the left shoulder at this time The risks and benefits of a steroid injection including but not limited to risk of damage to blood vessels, nerves, tendons, infection, skin bleaching, failure to improve symptoms, increased pain, and possible need for further injections or other intervention were discussed with the patient and the patient wishes to proceed with the steroid injection. Once consent was obtained, I aseptically prepped the area over the posterior soft space just below the acromion of the right shoulder. I then injected the area over the lateral epicondyle with a combination of 40 mg of dexamethasone and 8 mL of 1% lidocaine. The patient tolerated the procedure well with no complications. If the patient continues to experience symptoms over the following few weeks or months, they can make an appointment to return and discuss alternative treatment measures, such as physical therapy. Follow-up prn Coding Level of Care Code Procedure Only Diagnoses Osteoarthritis of shoulders, bilateral M19.011; M19.012 CPT Codes Shoulders, Hips, Knees, - Shoulder Injection Large joint : Right Shoulder ([id number])
--- OUTSIDE RECORDS SUMMARY | 2025-02-19 17:07 | XMS_ITS | Clinical Summary ---
Author Organization [facility] Address [address] [facility] [address] [place] [address] Care Team Providers Care Pairer Inspector Name Role Phone Unavailable Primary Care Provider [...]
--- OUTSIDE RECORDS SUMMARY | 2025-02-19 17:07 | XMS_ITS | Encounter Summary ---
Author Organization [facility] Address [address] [place] [address] [address] [place] [address] Care Team Providers Care Forming Yardage Control Operator Name Role Phone Unavailable Primary Care Provider Unavailabl e Encounter Details Date Type Department Care Team (Latest Contact Info) Description 07/01/2018 Abstract [facility] CONVERSIONS Dental, Provider, DDS Social History Tobacco [...]
--- OUTSIDE RECORDS SUMMARY | 2025-02-19 17:08 | XMS_ITS | Patient Health Record ---
Author Organization Miko Elias III, MD Address [address] [place] [address] [address] [place] [address] Care Team Providers Care Banking Representative Name Role Phone Dr. Miko Elias III [...] Panel Reviewed date:04/25/2024 08:42:11 PM Interpretation: Performing Lab:[facility], [address] [place] [phone] Notes/Report: Triglycerides 183 <150 mg/dL Desirable Triglyceride: [...] Random Reviewed date:04/25/2024 08:42:11 PM Interpretation: Performing Lab:[address] [address] Notes/Report: Creatinine Urine 168.08 Microalbumin Urine 30.0 Microalbum/Creatinine Ratio Ur 17.8 <30 ug/mg cr Albumin/Creatinine Ratio Reference Ranges: Normal: < 30 ug/mg creatinine Microalbuminuria: 30 - 300 ug/mg creatinine Clinical Albuminuria: > 300 ug/mg creatinine Hemoglobin A1c Reviewed date:04/25/2024 08:42:11 PM Interpretation: Performing Lab:[address] [address] Notes/Report: Hemoglobin A1c % 6.7 <6.0 % [...] average glucose, using the formula of the G4G-Fyvxsja Average Glucose study (ADAG), Diabetes Care, Vol.31,#8, [...] 0.2 - 1.3 BLD Negative Negative - Lipid Panel Reviewed date:02/17/2025 06:09:23 AM Interpretation: Performing Lab:[address] [address] Notes/Report: Triglycerides 150 <150 mg/dL Desirable Triglyceride: [...] A1c Reviewed date:02/17/2025 06:09:23 AM Interpretation: Performing Lab:[address] [address] Notes/Report: Hemoglobin A1c % 7.5 <6.0 % [...] average glucose, using the formula of the M3Y-Pivriur Average Glucose study (ADAG), Diabetes Care, Vol.31,#8, Dec. 2007 Complete Blood Count Auto Di ff Reviewed date:04/25/2024 08:42:11 PM Interpretation: Performing Lab:[address] [address] Notes/Report: White Blood Count 8.6 4.8-10.8 X10*3/uL [...] NRBC Abs Auto 0.000 0.0-0.012 X10*3/uL Comprehensive [place]. Panel Fa st Reviewed date:04/25/2024 08:42:11 PM Interpretation: Performing Lab:[facility], [address] [place] [phone] Notes/Report: Sodium 138 135-145 mmol/L Potassium 4.8 [...] date:04/25/2024 08:42:11 PM Interpretation: Performing Lab: Notes/Report: [address] [address] XRay Report Signed Patient: Sylvester Rock MR#: [id number] 287 : 1945 Acct:[id number] Age/Sex: 78 / M ADM Date: 04/25/24 Loc: HO.XRAY Attending Dr: Miko Elias MD Ordering Physician: Miko Elias MD Date of Service: 04/25/24 Procedure(s): XR chest 2V Accession Number(s): [id number] cc: Miko Elias MD EXAMINATION: XR CHEST CLINICAL INFORMATION: Chronic cough. COMPARISON: None available. TECHNIQUE: 2 views of the chest were obtained. FINDINGS: There is no gross pneumothorax. Heart size is normal. Trace left pleural effusion. Patchy opacities in the aum-ij-rmdio left lung. Deformity of several left ribs, possibly related to trauma of indeterminate age and this could be evaluated with dedicated views of the ribs. Degenerative changes in the thoracic spine. XR/XR chest 2V IMPRESSION: 1. Substantial patchy airspace opacities in the ike-zm-gdbyc left lung. 2. Deformity of several left [...] 04/25/24 1312 DD/ 1049 TD/TT: 04/25/24 1103 Animal Feeder: [address] [address] XRay Report Signed Patient: Dave Rock rd MR#: [id number] 287 : 1945 Acct:[id number] Age/Sex: 78 / M ADM Date: 04/25/24 Loc: HO.XRAY Attending Dr: Miko Elias MD Ordering Physician: Miko Elias MD Date of Service: 04/25/24 Procedure(s): XR jd st 2V Accession Number(s): [id number] cc: Miko Elias MD EXAMINATION: XR CHEST CLINICAL INFORMATION: Chronic cough. COMPARISON: None available. TECHNIQUE: 2 views of the chest were obtained. FINDINGS: There is no gross pneumothorax. Heart size is normal. Trace left pleural effusion. Patchy opacities in the zrs-ad-csrcv left lung. Deformity of several left ribs, possibly related to trauma of indeterminate age an d this could be evaluated with dedicated views of the ribs. Degenerative changes in the thoracic spine. XR/XR chest 2V IMPRESSION: 1. Substantial patch y airspace opacities in the ktp-rm-indsk left lung. 2. Deformity of several left [...] 04/25/24 1312 DD/ 1049 TD/TT: 04/25/24 1103 Animal Feeder: CT chest wo con Reviewed date:10/17/2024 10:09:22 AM Interpretation: Performing Lab: Notes/Report: [address] [address] [address] Scan Report Signed Patient: Sylvester Rock MR#: [id number] 287 : 1945 Acct:[id number] Age/Sex: 78 / M ADM Date: 06/30/24 Loc: HO.CT Attending Dr: Guy Mooney MD Ordering Physician: Guy Mooney MD Date of Service: 06/30/24 Procedure(s): CT chest wo IV con Accession Number(s): [id number] cc: Miko Elias MD; Guy Mooney MD Report Number: [id number]: Total DLP = 189.00 mGy-cm CLINICAL HISTORY: [...] signed by Rosalio Willis MD in OV> 07/03/24835 DD/ 4 TD/TT: 07/03/24834 Animal Feeder: [place] [address] [address] Scan Report Signed Patient: Dave Rock rd MR#: [id number] 287 : 1945 Acct:[id number] Age/Sex: 78 / M ADM Date: 06/30/24 Loc: .CT Attending Dr: Guy Mooney MD Ordering Physician: Guy Mooney MD Date of Service: 06/30/24 Procedure(s): CT jd st wo IV con Accession Number(s): [id number] cc: Miko Elias MD; Guy Mooney MD Report Number: [id number]: Total DLP = 189.00 mGy-cm CLINICAL HISTORY: [...] signed by Rosalio Willis MD in OV> 07/03/24835 DD/ 4 TD/TT: 07/03/24834 Animal Feeder: Complete Blood Count Auto Di ff Reviewed date:10/17/2024 10:09:21 AM Interpretation: Performing Lab:[facility], [address] [place] [phone] Notes/Report: White Blood Count 7.9 4.8-10.8 X10*3/uL [...] NRBC Abs Auto 0.000 0.0-0.012 X10*3/uL Comprehensive [place]. Panel Fa Reviewed date:10/17/2024 10:09:22 AM Interpretation: Performing Lab:[facility], [address] [place] [phone] Notes/Report: Sodium 135 135-145 mmol/L Potassium 5.0 [...] Peptide Reviewed date:10/17/2024 10:09:21 AM Interpretation: Performing Lab:[facility], [address] [place] [phone] Notes/Report: B Type Natriuretic Peptide 25 <100 pg/mL Lipid Panel Reviewed date:10/17/2024 10:09:22 AM Interpretation: Performing Lab:[facility], [address] [place] [phone] Notes/Report: Triglycerides 122 <150 mg/dL Desirable Triglyceride: [...] Antigen Reviewed date:10/17/2024 10:09:22 AM Interpretation: Performing Lab:[address] [address] Notes/Report: Prostate Specific Antigen 3.53 <0.05-4.0 ng/mL PSA methodology: [place] Al[place] i Chemiluminescent Microparticle Immunoassay (CMIA) Microalbumin, Random Reviewed date:10/17/2024 10:09:21 AM Interpretation: Performing Lab:[facility], [address] [place] [phone] Notes/Report: Creatinine Urine 82.66 Microalbumin Urine 8.0 Microalbum/Creatinine Ratio Ur 9.6 <30 ug/mg cr Albumin/Creatinine Ratio Reference Ranges: Normal: < 30 ug/mg creatinine Microalbuminuria: 30 - 300 ug/mg creatinine Clinical Albuminuria: > 300 ug/mg creatinine Hemoglobin A1c Reviewed date:10/17/2024 10:09:21 AM Interpretation: Performing Lab:[address] [address] Notes/Report: Hemoglobin A1c % 6.7 <6.0 % [...] average glucose, using the formula of the V8C-Enkngrl Average Glucose study (ADAG), Diabetes Care, Vol.31,#8, Dec. 2007 CT chest wo con Reviewed date:02/17/2025 06:09:23 AM Interpretation: Performing Lab: Notes/Report: [place] [address] [place] [address] CT Scan Report Signed Patient: Sylvester Rock MR#: [id number] 287 : 1945 Acct:[id number] Age/Sex: 79 / M ADM Date: 11/17/24 Loc: HO.CT Attending Dr: Guy Mooney MD Ordering Physician: Guy Mooney MD Date of Service: 11/17/24 Procedure(s): CT chest wo IV con Accession Number(s): [id number] cc: Miko Elias MD; Guy Mooney MD Report Number: [id number]: Total DLP = 189.00 mGy-cm EXAMINATION: CT [...] MD in OV> 11/17/24827 DD/ 0759 TD/TT: 11/17/24 0814 Animal Feeder: [place] [address] [address] Scan Report Signed Patient: Dave Rock rd MR#: [id number] 287 : 1945 Acct:[id number] Age/Sex: 79 / M ADM Date: 11/17/24 Loc: HO.CT Attending Dr: Guy Mooney MD Ordering Physician: Guy Mooney MD Date of Service: 11/17/24 Procedure(s): CT jd st wo IV con Accession Number(s): [id number] cc: Miko Elias MD; Guy Mooney MD Report Number: [id number]: Total DLP = 189.00 mGy-cm EXAMINATION: CT [...] 11/17/24 0828 DD/ 0759 TD/TT: 11/17/24 0814 Animal Feeder: Complete Blood Count Auto Di ff Reviewed date:02/17/2025 06:09:23 AM Interpretation: Performing Lab:[facility], [address] [place] [phone] Notes/Report: White Blood Count 9.3 4.8-10.8 X10*3/uL Red Blood Count 3.80 4.60-5.80 X10*6/uL Hemoglobin 12.3 14.0-18.0 g/dl Hematocrit 36.4 42.0-52.0 % Mean Corpuscular Volume 95.8 80.0-98.0 fL Mean Corpuscular Hemoglobin 32.4 27.0-33.0 pg Mean Corpuscular HGB Conc 33.8 31.0-36.0 g/dl Red Cell Distribution Width 15.0 11.0-16.0 % Platelet Count 226 160-400 X10*3/uL Mean Platelet Volume 11.4 9.4-12.4 fL Neutrophils Percent Auto 54.4 45-73 % Imm Gran Pct Auto 0.8 0.0-0.4 % Lymphocytes Percent Auto 28.1 20-40 % Monocytes Percent Auto 12.1 2-11 % Eosinophils Percent Auto 3.6 0-4 % Basophils Percent Auto 1.0 0-2 % NRBC Pct Auto 0.2 0.0-0.2 /100WBC Neutrophils Absolute Auto 5.0 2.0-8.3 x10*3/u L Imm Gran Abs Auto 0.07 0.00-0.03 X10*3/uL Lymphocytes Absolute Auto 2.6 1.2-4.9 X10*3/u L Monocytes Absolute Auto 1.1 0.1-1.2 X10*3/uL Eosinophils Absolute Auto 0.3 0.0-0.4 X10*3/u L Basophils Absolute Auto 0.1 0.0-0.2 X10*3/uL NRBC Abs Auto 0.020 0.0-0.012 X10*3/uL Comprehensive [place]. Panel Fa st Reviewed date:02/17/2025 06:09:23 AM Interpretation: Performing Lab:[facility], [address] [place] [phone] Notes/Report: Sodium 141 135-145 mmol/L Potassium 5.1 3.3-5.1 mmol/L Chloride 105 96-108 mmol/L Carbon Dioxide 30 22-29 mmol/L Anion Gap 11 12-20 Blood Urea Nitrogen 11 9-16 mg/dL Creatinine 1.02 0.5-1.4 mg/dL Estimated Glomerular Filt Rate > 60 Chronic Kidney Disease: Estimated GFR < 60 mL/min/1.73m2 Severe Kidney Disease: Estimated GFR < 15 mL/min/1.73m2 Glucose Fasting 148 60-99 mg/dL A fasting glucose of 126 mg/dl or greater on more than one occasion is considered diagnostic of diabetes. Calcium 9.6 8.4-10.2 mg/dL Bilirubin Total 1.1 0.0-1.0 mg/dL Aspartate Amino Transferase 37 5-37 U/L Alanine Aminotransferase 30 0-40 U/L Total Protein 7.2 6.5-8.0 g/dL Albumin Level 4.6 3.5-5.0 g/dL Alkaline Phosphatase 66 39-117 U/L Microalbumin, Random Reviewed date:02/17/2025 06:09:23 AM Interpretation: Performing Lab:[facility], [address] [place] [phone] Notes/Report: Creatinine Urine 200.23 Microalbumin Urine 107.0 Microalbum/Creatinine Ratio Ur 53.4 <30 ug/mg cr Albumin/Creatinine Ratio Reference Ranges: Normal: < 30 ug/mg creatinine Microalbuminuria: 30 - 300 ug/mg creatinine Clinical Albuminuria: > 300 ug/mg creatinine Reason For Referral Reason LLL opacities eval uate and treat Diagnosis 1 Former smoker (Z87.8 91) Diagnosis 2 Chronic cough (R05.3 ) Referral Organization Miko Elias III, MD Referring Provider First Name Miko Referring Provider Last Name Elias Referring Provider Speciality Internal edicine Referred Provider [facility], Pulmonology Referred Provider Specialty Pulmonary [facility] General Notes Tonia Singletary CMA 04/26 11:10:04 AM >ref/demo/progress note/labs/cxr faxed to [facility] . called made patient appt with Dr Armstrong for 05/29/2024 at 10:45am info called and mailed to patient Referral Priority Routine Referral Appointment Date 05/29/2024 Reason Evaluate and Treat Shoulder Pain Questioning Injections Diagnosis 1 Shoulder pain (M25.5 19) Referral Organization Miko Elias III, MD Referring Provider First Name Miko Referring Provider Last Name Elias Referring Provider Speciality Internal edicine Referred Provider [facility] er, Orthopedic Surgeons Referred Provider Specialty Orthopedic [...] Problem Status W/U Status Risk Notes Problem 5809926 Former smoker (Z87.891) Active confirmed He is highly motivated not to smoke and we have discussed strategies for maintenance of abstinence. Problem 023699162 Overweight (E66.3) Active confirmed He is overweight but lost 2 pounds. We discussed his diet and nutrition. We made plans to lose weight at a rate of one half of a pound per week. Problem 51306510 Depression (F32.9) Active confirmed . He occasionally has mild episodes of depressed feelings. This was present today but did not require additional treatment. Problem 93937811 Diabetes mellitus (E11.9) Active confirmed The hemoglobin A1c has increased to 7.5. He has gained 2 pounds. We recommended additional weight loss but made no change in his regimen.He well continue as is and attempt to lose weight steadily.A repeat value was ordered in the near future. He was encouraged to follow a weight loss diabetic diet. Problem Calculus of kidney with calculus of ureter (087142423) Calculus of kidney with calculus of ureter (N20.2) Active confirmed He has a ston e in a ureter and an ultrasound will soon be done to assess the to see if it needs treatment. He is under the care of a urologist. Problem 51027013 Gout (M10.9) Active confirmed A uric acid level will be checked in the future. He has had no recent attacks of gout. Problem Benign prostatic hypertrophy without outflow obstruction (222900308) BPH (benign prostatic hypertrophy) (N40.0) Active confirmed He will be continued on the tamsulosin. The urine culture showed no infection. Problem 84881006 Essential hypertension (I10) Active confirmed His blood pressure is Unremarkable. No change in his regimen as needed. Problem 484056008 Environmental allergies (Z91.09) Active confirmed He reports an increase in his allergic symptoms recently. We reviewed and adjusted. His allergy regimen. Problem Pure hypercholesterolem ia (822935945) Hyperlipidemia type II (E78.01) Active confirmed His total cholesterol was 120. No change in his regimen was needed. Problem Acute low back pain (finding) (432009029) Acute low back pain without sciatica, unspecified back pain laterality (M54.5) Active confirmed His back pain has resolved and he has been to the urologist. Problem 21119952 Cardiomyopathy, unspecified type (I42.9) Active confirmed His cardiomyopathy is well compensated and he is not short of breath with the routine activities of daily living. Problem 111383316 Pulmonary nodule, left (R91.1) Active confirmed A chest CT scan in October 2024 showed a stable left upper lobe irregularly-sha ped nodule slightly smaller than on previous studies. He is followed by Dr. Mooney of the pulmonary department who saw him in December of this year and will repeat the CT scan after 12 months. His cough is improved. Vital Signs Heart Rate 63 /min 02/16/2025 Temperature 97.3 degrees Fahrenheit 10/17/2024 Oximetry 97 % 02/16/2025 Blood pressure diastolic 65 mm Hg 02/16/2025 Height 69 in 02/16/2025 Blood pressure systolic 115 mm Hg 02/16/2025 Weight 187 lbs 02/16/2025 BMI 27.61 kg/m2 02/16/2025 Encounters Encounter Location Date Provider Diagnosis Miko Elias III, MD [address] [place] [address] [place] [phone] 02/22/2024 Miko Elias Cardiomyopathy, unsp ecified type I42.9 ; Diabetes mellitus E11.9 ; Gout M10.9 and BPH (benign prostatic hypertrophy) N40.0 Miko Elias III, MD [address] [place] [address] [place] [phone] 04/25/2024 Miko Elias Diabetes mellitus E1 1.9 ; Overweight E66.3 ; Hyperlipidemia type II E78.01 ; Chronic cough R05.3 ; Gout M10.9 ; Depression F32.9 ; Environmental allergies Z91.09 and BPH (benign prostatic hypertrophy) N40.0 Miko Elias III, MD [address] [place] [address] [place] [phone] 05/02/2024 Miko Elias Simple chronic bron hitis J41.0 ; Environmental allergies Z91.09 ; Depression F32.9 ; Gout M10.9 ; Diabetes mellitus E11.9 ; Cardiomyopathy, unspecified type I42.9 ; Hyperlipidemia type II E78.01 and Former smoker Z87.891 Miko Elias III, MD [address] [place] [address] [place] [phone] 10/17/2024 Miko Elias Diabetes mellitus E1 1.9 ; Gout M10.9 ; Depression F32.9 ; Environmental allergies Z91.09 ; Overweight E66.3 ; Essential hypertension I10 ; Former smoker Z87.891 ; Hyperlipidemia type II E78.01 ; BPH (benign prostatic hypertrophy) N40.0 and Cardiomyopathy, unspecified type I42.9 Miko Elias III, MD [address] [place] [address] [place] [phone] 02/16/2025 Miko Elias Cardiomyopathy, unsp ecified type I42.9 ; Overweight E66.3 ; Former smoker Z87.891 ; Environmental allergies Z91.09 ; Gout M10.9 ; BPH (benign prostatic hypertrophy) N40.0 ; Pulmonary nodule, left R91.1 and Diabetes mellitus E11.9 Miko Elias III, MD [address] [place] [address] [place] [phone] 04/26/2024 Miko Elias Former smoker Z87.89 1 and Chronic cough R05.3 Miko Elias III, MD [address] [place] [address] [place] [phone] 10/02/2024 Miko Elias Hypertriglyceridemia E78.1 ; Diabetes mellitus E11.9 ; Cardiomyopathy, unspecified type I42.9 ; BPH (benign prostatic hypertrophy) N40.0 and Essential hypertension I10 Assessments Encounter Date Diagnosis (ICD Code) Assessment Notes T reatment Notes Treatment Clinical Notes 02/22/2024 Diabetes mellitus (I CD-10 - E11.9) [...] had no recent attacks of gout. 02/16/2025 Overweight (ICD-10 - E66.3) He is overweight but lost 2 pounds. We discussed his diet and nutrition. We made plans to lose weight at a rate of one half of a pound per week. 02/16/2025 Cardiomyopathy, unspecified type (ICD-10 - I42.9) His cardiomyopathy is well compensated and he is not short of breath with the routine activities of daily living. 04/26/2024 Former smoker (ICD-1 0 - Z87.891) 10/02/2024 Hypertriglyceridemia (ICD-10 - E78.1) 02/22/2024 Gout (ICD-10 - M10.9) A uric [...] today but did not require additional treatment. 02/16/2025 Former smoker (ICD-1 0 - Z87.891) He is highly motivated not to smoke and we have discussed strategies for maintenance of abstinence. 04/26/2024 Chronic cough (ICD-1 0 - R05.3) 10/02/2024 Diabetes mellitus (I CD-10 - E11.9) 02/22/2024 BPH (benign prostati c hypertrophy) (ICD-10 [...] reviewed and adjusted. His allergy regimen. 02/16/2025 Environmental allerg ies (ICD-10 - Z91.09) He [...] half of a pound per week. 02/16/2025 Gout (ICD-10 - M10.9) A uric aci d level will be checked in the future. He has had no recent attacks of gout. 10/02/2024 BPH (benign prostati c hypertrophy) (ICD-10 [...] No change in his regimen as needed. 02/16/2025 BPH (benign prostati c hypertrophy) (ICD-10 - N40.0) He will be continued on the tamsulosin. The urine culture showed no infection. 10/02/2024 Essential hypertensi on (ICD-10 - I10) [...] discussed strategies for maintenance of abstinence. 02/16/2025 Pulmonary nodule, le ft (ICD-10 - R91.1) A chest CT scan in October 2024 showed a stable left upper lobe irregularly-shaped nodule slightly smaller than on previous studies. He is followed by Dr. Mooney of the pulmonary department who saw him in December of this year and will repeat the CT scan after 12 months. His cough is improved. 04/25/2024 BPH (benign prostati c hypertrophy) (ICD-10 [...] No change in his regimen was needed. 02/16/2025 Diabetes mellitus (I CD-10 - E11.9) The hemoglobin A1c has increased to 7.5. He has gained 2 pounds. We recommended additional weight loss but made no change in his regimen.He well continue as is and attempt to lose weight steadily.A repeat value was ordered in the near future. He was encouraged to follow a weight loss diabetic diet. 10/17/2024 BPH (benign prostati c hypertrophy) (ICD-10 [...] ELECTROLYTES 01/15/2020 PROFILE, FASTING (COMPREHENSIVE METABOLI C) 11/11/2022 PROFILE, FASTING (COMPREHENSIVE METABOLI C) 08/27/2021 PROFILE, FASTING (COMPREHENSIVE METABOLI C) 12/08/2019 PROFILE, FASTING (COMPREHENSIVE METABOLI C) 07/29/2022 PROFILE, FASTING (COMPREHENSIVE METABOLI C) 10/20/2019 PROFILE, FASTING (COMPREHENSIVE METABOLI C) 02/17/2021 PROFILE, FASTING (COMPREHENSIVE METABOLI C) 11/12/2020 PROFILE, FASTING (COMPREHENSIVE METABOLI C) 08/09/2020 PROFILE, FASTING (COMPREHENSIVE METABOLI C) 06/18/2021 PROFILE, FASTING (COMPREHENSIVE METABOLI C) 12/17/2021 PROFILE, FASTING (COMPREHENSIVE METABOLI C) 07/21/2019 PROFILE, FASTING (COMPREHENSIVE METABOLI C) 02/16/2025 PROFILE, FASTING (COMPREHENSIVE METABOLI C) 10/17/2024 PROFILE, FASTING (COMPREHENSIVE METABOLI C) 05/03/2020 PROFILE, FASTING (COMPREHENSIVE METABOLI C) 10/13/2023 PROFILE, FASTING (COMPREHENSIVE METABOLI C) 03/12/2023 PROFILE, FASTING (COMPREHENSIVE METABOLI C) 03/13/2019 PROFILE, FASTING (COMPREHENSIVE METABOLI C) 08/26/2023 PROFILE, FASTING (COMPREHENSIVE METABOLI C) 10/11/2018 PROFILE, FASTING (COMPREHENSIVE METABOLI C) 10/02/2024 PROFILE, FASTING (COMPREHENSIVE METABOLI C) 03/30/2018 PROFILE, FASTING (COMPREHENSIVE METABOLI C) 01/30/2019 PROFILE, RANDOM (COMPREHENSIVE METABOLIC ) 01/15/2020 HEMOGLOBIN A1C (GLYCOHEMOGLOBIN) 019 HEMOGLOBIN A1C (GLYCOHEMOGLOBIN) 019 HEMOGLOBIN A1C (GLYCOHEMOGLOBIN) 022 HEMOGLOBIN A1C (GLYCOHEMOGLOBIN) 020 HEMOGLOBIN A1C (GLYCOHEMOGLOBIN) 023 HEMOGLOBIN A1C (GLYCOHEMOGLOBIN) 020 HEMOGLOBIN A1C (GLYCOHEMOGLOBIN) 021 HEMOGLOBIN A1C (GLYCOHEMOGLOBIN) 022 HEMOGLOBIN A1C (GLYCOHEMOGLOBIN) 020 HEMOGLOBIN A1C (GLYCOHEMOGLOBIN) 020 HEMOGLOBIN A1C (GLYCOHEMOGLOBIN) 019 CALCIUM 10/11/2018 URIC ACID 03/30/2018 URIC ACID 10/11/2018 LIPID PANEL 03/13/2019 LIPID PANEL 11/11/2022 LIPID PANEL 03/30/2018 LIPID PANEL 01/30/2019 LIPID PANEL 02/17/2021 LIPID PANEL 08/27/2021 LIPID PANEL 08/09/2020 LIPID PANEL 07/29/2022 LIPID PANEL 10/20/2019 LIPID PANEL 11/12/2020 LIPID PANEL 10/11/2018 LIPID PANEL 06/18/2021 LIPID PANEL 07/21/2019 LIPID PANEL 05/03/2020 LDH 10/11/2018 FREE T4 (FT4) 10/11/2018 FREE T4 (FT4) 12/27/2019 TSH (THYROID STIMULATING HORMONE) 2019 TSH (THYROID STIMULATING HORMONE) 2018 BRAIN NATRIURETIC PEPTIDE (BNP) 10/03/19 25 BRAIN NATRIURETIC PEPTIDE (BNP) 12/27/19 20 PSA, TOTAL 08/26/2023 PSA, TOTAL 10/02/2024 PSA, TOTAL 08/27/2021 PSA, TOTAL 07/29/2022 PSA, TOTAL 03/12/2023 PSA, TOTAL SCREEN 02/17/2021 MICROALBUMIN, RANDOM 08/09/2020 MICROALBUMIN, RANDOM 10/20/2019 MICROALBUMIN, RANDOM 11/12/2020 MICROALBUMIN, RANDOM 08/27/2021 CBC w DIFF 07/21/2019 CBC w DIFF 11/12/2020 CBC w DIFF 05/03/2020 CBC w DIFF 08/27/2021 CBC w DIFF 03/13/2019 CBC w DIFF 01/15/2020 CBC w DIFF 10/11/2018 CBC w DIFF 11/11/2022 CBC w DIFF 12/08/2019 CBC w DIFF 10/02/2024 CBC w DIFF 03/30/2018 CBC w DIFF 01/30/2019 CBC w DIFF 12/17/2021 CBC w DIFF 02/16/2025 CBC w DIFF 10/17/2024 CBC w DIFF 02/17/2021 CBC w DIFF 08/09/2020 CBC w DIFF 07/29/2022 CBC w DIFF 06/18/2021 CBC w DIFF 10/20/2019 SED RATE (ESR) 10/11/2018 SED RATE (ESR) 12/08/2019 MONO TEST (HETEROPHILE AB) 12/27/2019 URINALYSIS (UA) 10/11/2018 LYME DISEASE IgG/IgM WB 12/27/2019 CT ABD & PELVIS WITH CONTRAST 12/20/2017 XR LUMBAR SPINE 4+ VIEWS 10/19/2017 US RENAL BILATERAL 08/04/2017 US RENAL BILATERAL 02/17/2021 US URINARY BLADDER 02/17/2021 US URINARY BLADDER 08/04/2017 Echocardiogram 12/27/2019 Stress Test 03/30/2018 CBC WITH AUTO DIFF 03/12/2023 CBC WITH AUTO DIFF 08/26/2023 CBC WITH AUTO DIFF 10/13/2023 Uric Acid 03/12/2023 Lipid Panel 08/26/2023 Lipid Panel 03/12/2023 Lipid Panel 10/02/2024 Lipid Panel 12/17/2021 Lipid Panel 10/17/2024 Lipid Panel 10/13/2023 Microalbumin, Random 10/17/2024 Microalbumin, Random 10/13/2023 Microalbumin, Random 08/26/2023 Microalbumin, Random 10/02/2024 Hemoglobin A1c 10/02/2024 Hemoglobin A1c 08/09/2020 Hemoglobin A1c 10/17/2024 Hemoglobin A1c 10/13/2023 Hemoglobin A1c 08/26/2023 Hemoglobin A1c 12/17/2021 Next Appt Details Provider Name:Miko Elias , 06/22/2025 09:15:00 AM, [address] [facility] [address], [place], [address], Provider Name:Miko Elias , 10/18/2025 10:00:00 AM, [address] [place] [address] [address], [place], [address], Insurance Providers Payer Name Payer Address Payer Phone Subscriber Number Group Number Insured Name Patient Relationship to Insured Coverage Start Date Coverage End Date [employer] [address] [place] [address] [id number] Sylvester Rock Self - patient is the insured MEDICAID [facility] [address] [facility] [id number] Sylvester Rock Self - patient is the insured MEDICARE [place] [address] [place] [place] [id number] Sylvester Rock Self - patient is the [...]
== END 2025-02-19 15:49 | disposition home or self-care (01) ==
LOC: HO.HOS 15:02
PROVIDERS: PCP Internal Medicine Medical Oncology
DX: M19.011 Primary osteoarthritis, right shoulder (principal); M19.012 Primary osteoarthritis, left shoulder
CPT/HCPCS: 20610

== ENCOUNTER → 2025-02-19 15:02 | Outpatient (BNVA) | payer MEDICARE, SELFPAY | PROVIDERS: PCP Internal Medicine Medical Oncology | DX: M25.511 Pain in right shoulder (principal); M19.011 Primary osteoarthritis, right shoulder | CPT/HCPCS: 20610; J0665; J1100; J2003 ==